=== PATIENT | male | born 1960 ===

== ENCOUNTER 2024-11-12 02:28 | Emergency (ER) | payer MEDICARE, SELFPAY ==
--- NOTE | ~2024-11-12 | XR_ITS ---
Portable chest x-ray Comparison: None Clinical History: Chest pain Findings: Lungs are clear, without focal consolidation or pleural effusion. Cardiomediastinal silho uette is unremarkable. Cervical spine fixation hardware noted. Impression: Clear lungs. Reviewed, dictated and finalized at location M. Impression: Clear lungs.
--- OUTSIDE RECORDS SUMMARY | 2024-11-12 02:30 | XMS_ITS | Clinical Summary ---
Author Organization [facility] Address [address] [place] [address] Care Team Providers Care Brickmason Supervisor Name Role Phone Kamron Garnett MD Primary Care Provider [phone] Becky Sands LCSW Unavailable Unavaila Micaela Braga RN Unavailable [phone] Allergies No known active allergies Medications hydroCHLOROthiazi de (HYDRODIURIL) 25 mg tablet Take 1 tablet by mouth once daily 90 tablet 11/22/19 24 Active losartan (COZAAR) 100 mg tabletIndications :Hypertension, essential Take 1 tablet (100 mg total) by mouth daily 90 tablet 05/09/20 24 Active nitroglycerin (NITROSTAT) 0.4 mg SL tablet DISSOLVE ONE TABLET UNDER THE TONGUE EVERY 5 MINUTES NEEDED FOR CHEST PAIN. DO NOT EXCEED A TOTAL OF 3 DOSES IN 15 MINUTES 25 tablet 08/15/19 25 Active amLODIPine (NORVASC) 10 mg tabletIndications :Hypertension, essential 11/04/19 25 Active atorvastatin (LIPITOR) 10 mg tabletIndications :Mixed hyperlipidemia 11/04/19 25 Active gabapentin (NEURONTIN) 300 mg capsuleIndication s:RLS (restless legs syndrome) 11/04/19 25 Active hydrOXYzine (VISTARIL) 50 mg capsuleIndication s:Bipolar disorder, in partial remission, most recent episode mixed (HCC) 11/04/19 25 Active lithium 300 mg capsuleIndication s:Bipolar disorder, in partial remission, most recent episode mixed (HCC) 11/05/19 25 Active OLANZapine (ZyPREXA) 10 mg tabletIndications :Bipolar disorder, in partial remission, most recent episode mixed (HCC) 11/04/19 25 Active pramipexole (MIRAPEX) 0.75 mg tabletIndications :RLS (restless legs syndrome) Take 1 tablet (0.75 mg total) by mouth nightly as needed (Restless Legs) 90 tablet 3 11/07/19 25 Active pramipexole (MIRAPEX) 0.5 mg tabletIndications :RLS (restless legs syndrome) Take 1 tablet (0.5 mg total) by mouth every morning 90 tablet 3 11/07/19 25 Active amLODIPine (NORVASC) 5 mg tablet Take 1 tablet (5 mg total) by mouth daily 30 tablet 5 07/11/19 22 025 Discontinued rosuvastatin (CRESTOR) 20 mg tabletIndications :Mixed hyperlipidemia Take 1 tablet (20 mg total) by mouth daily 30 tablet 11 05/08/20 23 025 Discontinued amLODIPine (NORVASC) 2.5 mg tabletIndications :hypertension Take 1 tablet (2.5 mg total) by mouth daily Take with 5 mg tab to bring total daily dose to 7.5 mg daily 30 tablet 3 07/25/19 24 025 Discontinued escitalopram (LEXAPRO) 10 mg tabletIndications :Mild episode of recurrent major depressive disorder Take 0.5 tablets (5 mg total) by mouth daily for 5 days, THEN 1 tablet (10 mg total) daily. 33 tablet 05/01/20 24 025 Discontinued pramipexole (MIRAPEX) 0.75 mg tablet Take 1 tablet (0.75 mg total) by mouth nightly as needed (Restless Legs) 30 tablet 3 09/26/19 25 025 Discontinued(R eorder) pramipexole (MIRAPEX) 0.5 mg tablet 11/04/19 25 025 Discontinued(R eorder) Active Problems Problem Noted Date Diagnosed Date Daytime somnolence 06/05/2023 Assessment & Plan (06/05/2023 11:21 AM EQUAL OPPORTUNITY COUNSELOR): STOP-BANG Score for Obstructive Sleep Apnea from [facility] on 06/05/2023 RESULT SUMMARY: 7 points --- Risk for moderate to severe MARILYNN - smoking before bed, caffeinated pops (pepsi), video games before bed, sleeps with TV on (lights) - obese - multifactorial sleep disturbance issues - highly suspicious for poor sleep hygiene VS sleep apnea no CPAP VS depression may be affecting sleep Current every day smoker 06/05/2023 Assessment & Plan (06/05/2023 11:39 AM EQUAL OPPORTUNITY COUNSELOR): Discussed quiting, patient previously able to quit for period of 20 yrs Total PY 20 -- 20 yrs x 1 PPD Currently 1 PPD since 2019 Smokes inside home, before sleep Pre-contemplation stage - understands risks At high risk for pneumonia 06/05/2023 Assessment & Plan (06/05/2023 11:47 AM EQUAL OPPORTUNITY COUNSELOR): Smoking status, HTN, obesity - PCV 20 administer to reduce risk Pxkutpluku-ryjotzlac-akbwrgi (DPT) vaccination d eclined 06/05/2023 Assessment & Plan (06/05/2023 11:48 AM EQUAL OPPORTUNITY COUNSELOR): Opted for one vaccine at appt 06/05/23 pcv 20 --- declined Tdap Abnormal EKG 05/12/2023 Assessment & Plan (06/05/2023 11:31 AM EQUAL OPPORTUNITY COUNSELOR): Abnormal changes on EKG 05/2023 Follow up NM spect 05/30/23 - 1. Normal myocardial perfusion. 2. No scintigraphic evidence of myocardial ischemia. 3. Normal left ventricular ejection fraction poststress. 4. Normal left ventricular wall motion. Lexiscan Stress test - CONCLUSIONS: 1. Negative Lexiscan pharmacologic stress test for chest pain or EKG changes. Discussed results today Assessment & Plan (05/12/2023 11:29 AM EQUAL OPPORTUNITY COUNSELOR): EKG was abnormal as well on repeat, we will need to get stress test as soon as feasible If symptoms recur, ER Nitroglycerin PRN for chest pain Recommended starting baby aspirin daily Replacing fenofibrate with Crestor Angina pectoris, unspecified 05/08/2023 Assessment & Plan (06/05/2023 11:36 AM EQUAL OPPORTUNITY COUNSELOR): CP with exertion, SOB with exertion, pitting edema of LE bilaterally - pro-BNP - recent stress and lexiscan revealed no abnormalities Cough syncope 05/17/2021 Chronic renal insufficiency, stage II (mild) Assessment & Plan (01/19/2021 11:29 AM CDT): stable Hypertension, essential 12/05/2020 Assessment & Plan (07/26/2023 1:07 PM EQUAL OPPORTUNITY COUNSELOR): Stress test clear from Nov Will watch however, any chest pain or jaw pain with chest pain/pressure, go to ER BP is mildly elevated; given the BP fluctuations, I will increase amlodipine to 7.5 mg daily Continue losartan, hydrochlorothiazide Assessment & Plan (06/05/2023 11:36 AM EQUAL OPPORTUNITY COUNSELOR): BP well controlled today 104/58 Continue current management - Amlodipine 5 mg Losartan 100 mg HCTZ 25 mg Crestor 20 mg Assessment & Plan (01/19/2021 11:29 AM CDT): BP is better, so we will leave losarta and chlorthalidone at current doses Need to emphasize the dietary part, so follow the DASH plan Assessment & Plan (12/17/2020 6:45 PM CDT): Home Bps running 165/105-170/180. In office blood pressure slightly elevated. Will increase Losartan to 100 mg. Keep home Bps and f/u in 4 weeks. Continue Chlorthalidone, refilled. Increase water intake and decrease salt intake. Assessment & Plan (12/05/2020 11:57 AM CDT): Trial losartan 50 mg daily, will continue chlorthalidone. BP journal should be kept. Ideally, I want BP to settle in 110s/70s (or 120s/70s). If below 100/60, should generate a call immediately. I also want to know if it is staying above 150/90 Mild episode of recurrent major depressive disor katherine 12/05/2020 Assessment & Plan (06/05/2023 11:37 AM EQUAL OPPORTUNITY COUNSELOR): No SI, SA, HI Prefers being alone Current treatment plan Escitalopram 5 mg po every day Assessment & Plan (12/17/2020 6:53 PM CDT): Patient notes that he has not yet located records of past medications he has been on. He does recall being on Effexor but not sure of what else. He was on Adderall in 2017 but then that made him hyperactive when mixed with his pain medications at the time. He was then dx with Bipolar and placed on N[place]. He states that he was not doing well on the [place] so his provider took him off the Adderall and N[place] and he felt better. It was later decided by his provider that the patient's anxiety and stress from work at the time were being exaggerated by the medications. Bipolar screen in office today is negative. Patient states his depression and anxiety are stable but he feels he needs to be on something because he is unmotivated with the depression. Denies SI. Will start on low dose Lexapro for now, patient to continue to locate records. Assessment & Plan (12/05/2020 11:57 AM CDT): Mood disorder will need to be addressed. Right now, stable. I need more records from previous doctor, to assess which antidepressants have been tried in the past, ferret out if bipolar or ADHD are truly present as well. Facial skin lesion 12/05/2020 Overview (12/05/2020): started after excision biopsy (pyoderma gangrenosum?) Assessment & Plan (12/05/2020 11:58 AM CDT): The facial lesion may be due to autoimmune issue, so I am adding that to the initial labs Referral to Dr. Haynes has been ordered RLS (restless legs syndrome) Assessment & Plan (01/19/2021 11:29 AM CDT): Will dose Mirapex a bit higher at night. We are somewhat over the limit for Mirapex already, so if this isn't helpful, we will try the alternative. Assessment & Plan (12/05/2020 11:59 AM CDT): Mirapex likely not controlling Will consider whether to increase or try a different rx (e.g. Requip) Will revisit at follow up; I want to get blood pressure controlled first. 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 05/01/20 24 Assessment & Plan (06/05/2023 11:40 AM EQUAL OPPORTUNITY COUNSELOR): Multiple caffeine sodas (pepsi) daily including before sleep Discussed reducing caffeine intake and relation to palpitations, anxiety\\, weight gain and difficulty sleeping Squamous cell carcinoma of forehead 02/02/2021 02/25/2021 Overview (02/02/2021): Added automatically from request for surgery [id number] SCC (squamous cell carcinoma) 01/21/2021 02/25/2021 Encounters Date Type Department Care Team Description 11/11/2024 Results Follow-Up [facility] Primary Care at [address] [phone] Kamron Garnett MD 11/06/2024 2:23 PM CDT - 11/06/2024 11:59 PM CDT Hospital Encounter [address] [address] Screening for prostate cancer; Bipolar disorder, in partial remission, most recent episode mixed (HCC); Mixed hyperlipidemia; Hypertension, essential; RLS (restless legs syndrome); Body mass index (BMI) 33.0-33.9, adult Discharge Disposition: Discharge to home or self care 11/06/2024 2:15 PM CDT Lab [facility] Outpatient Lab at [address] [phone] Hypertension, essential (Primary Dx) 11/06/2024 1:30 PM CDT Office Visit [facility] Primary Care at [address] [phone] Kamron Garnett MD Bipolar disorder, in partial remission, most recent episode mixed (HCC) (Primary Dx); Mild episode of recurrent major depressive disorder; Screening for prostate cancer; Mixed hyperlipidemia; RLS (restless legs syndrome); Hypertension, essential 11/04/2024 ACO Outreach [facility] Care Organization [address] [place] [id number] Micaela Baum RN 10/28/2024 ACO Outreach [address] [address] Micaela Baum RN 10/26/2024 7:54 AM CDT - 10/26/2024 11:59 PM CDT Hospital Encounter [facility] Emergency, Room R Discharge Disposition: Discharge to home or self care 10/25/2024 3:09 PM CDT - 10/26/2024 7:53 AM CDT Emergency [facility] Emergency Department [address] [place] [id number] Juan Tobin MD Paranoia (HCC) (Primary Dx); Urinary tract infection in male Discharge Disposition: Discharge to psych hospital or psych unit 10/25/2024 Nurse Triage [facility] Primary Care at [place] [phone] Kamron Garnett MD 10/23/2024 Results Follow-Up [facility] Emergency Department [address] [place] [id number] Gabriel Maddox PA 10/23/2024 Telephone [facility] Primary Care at [address] [phone] Kamron Garnett MD Successful Phone Call 10/22/2024 9:51 PM CDT - 10/23/2024 1:09 AM CDT Emergency [facility] Emergency Department [address] [place] [address] Jonathan Hart MD Paranoia (HCC) (Primary Dx) Discharge Disposition: Discharge to home or self care 10/22/2024 6:27 PM CDT - 10/22/2024 7:12 PM CDT Emergency [facility] Emergency Department [address] [place] [id number] Kanumuri, Eugene, MD Paranoid delusion (HCC) (Primary Dx) Discharge Disposition: Left Against Medical Advice 10/22/2024 Nurse Triage [facility] Primary Care at [address] [phone] Kamron Garnett MD 10/22/2024 Nurse Triage [facility] Primary Care at [address] [phone] Kamron Garnett MD 10/21/2024 ACO Clinical Pharmacist [facility] Organization [address] [place] [phone] So Wright RP from Last 3 Months Immunizations Immunization Administration Dates Next Due Influenza, Quadrivalent, Spl it, Preservative Free, Intramuscular 05/17/2021 Influenza, Unspecified 05/01/2024(Deferr ed: Patient Refused),05/08/2023(Deferred: Patient Refused),12/30/2022(Deferred: Patient Refused),07/02/2022(Deferred: Patient Refused),04/01/2020(Deferred: Patient Refused),04/01/2020(Deferred: Patient Refused),04/01/2019(Deferred: Patient Refused),04/01/2019(Deferred: Patient Refused) Pfizer SARS-CoV-2 Monovalent Vaccination (12+ Yrs) PURPLE 09/22/2020,09/02/2020 Pneumococcal Conjugate Pcv20 06/05/2023 Surgical History Surgery Date Site/Laterality Comments ANTERIOR FUSION CERVICAL SPINE 07/02/2007 - 07/01/2008 CHOLECYSTECTOMY 07/02/2010 - 07/01/2011 HERNIA REPAIR 07/02/2002 - 07/01/2003 bilateral inguinal and umbilical SQUAMOUS CELL CARCINOMA EXCISION 02/09/2021 Medical History Medical History Date Comments Hypertension Obesity (BMI 30.0-34.9) Depression RLS (restless legs syndrome) GERD (gastroesophageal reflu x disease) Anesthesia complication, sequela Pt reports prolonged tiredness for 2-3 days after anesthesia. Anesthesia causes constipation. SCC (squamous cell carcinoma) 01/21/2021 Squamous cell carcinoma of forehead 02/02/2021 Added automatically from request for surgery [id number] OCD (obsessive compulsive disorder) Bipolar 1 disorder (HCC) Borderline personality disorder (HCC) not offical dx Family History Medical History Relation Name Comments Diabetes type I Father at age 36 Lung cancer Maternal Grandfather No Known Problems Maternal Grandmother Heart failure Mother No Known Problems Paternal Grandfather No Known Problems Paternal Grandmother Relation Name Status Comments Brother 1 Alive Brother 2 Alive Brother 3 Alive Father Maternal Grandfather Maternal Grandmother Mother Paternal Grandfather Paternal Grandmother Social History Tobacco Use Types Packs/Day Years Used Date Smoking Tobacco: Some Days Cigarettes 0.5 69.4 Started: 07/02/1980 Cigars Smokeless Tobacco: Never Tobacco Cessation:Ready to Q uit: Not Asked; Counseling Given: Not Answered Alcohol Use Standard Drinks/Week Comments Not Currently 0 (1 standard drink = 0.6 oz pur e alcohol) [facility] Utilities Answer Date Recorded In the past 12 months has th e electric, gas, oil, or water company threatened to shut off services in your home? No 10/23/2024 Social Connection and Isolation Panel [NHANES] A nswer Date Recorded In a typical week, how many times do you talk on the phone with family, friends, or neighbors? Three times a week 10/23/2024 How often do you get togethe r with friends or relatives? Never 10/23/2024 How often do you attend chur ch or restorationism services? Never 10/23/2024 Do you belong to any clubs o r organizations such as hindu groups, unions, fraternal or athletic groups, or school groups? No 10/23/2024 How often do you attend meet ings of the clubs or organizations you belong to? Never 10/23/2024 Are you , , di vorced, , never , or living with a partner? 10/23/2024 AUDIT-C Answer Date Recorded Q1: How often do you have a drink containing alcohol? Never 07/25/2023 Q2: How many drinks containi ng alcohol do you have on a typical day when you are drinking? Patient does not drink Q3: How often do you have si x or more drinks on one occasion? Never 07/25/2023 Overall Financial Resource Strain (CARDIA) Answe r Date Recorded How hard is it for you to pa y for the very basics like food, housing, medical care, and heating? Hard 10/23/2024 PHQ-2 Answer Date Recorded PHQ-2 Total Score (If total score is 3 or more points, staff should administer the PHQ-9) 6 05/01/2024 [facility] Occupat ional [facility] - Occupational Stress Questionnaire Answer Date Recorded Do you feel stress - tense, restless, nervous, or anxious, or unable to sleep at night because your mind is troubled all the time - these days? Very much 10/23/2024 Hunger Vital Sign Answer Date Recorded Within the past 12 months, y ou worried that your food would run out before you got the money to buy more. Never true 10/24/19 25 Within the past 12 months, t he food you bought just didn't last and you didn't have money to get more. Never true 10/23/2024 PRAPARE - Transportation Answer Date Re corded In the past 12 months, has l ack of transportation kept you from medical appointments or from getting medications? No 10/01 In the past 12 months, has l ack of transportation kept you from meetings, work, or from getting things needed for daily living? No 10/23/2024 PHQ-9 Answer Date Recorded PHQ-9 Total Score 3 10/23/2024 Housing Stability Vital Sign Answer Jorge e Recorded In the last 12 months, was t here a time when you were not able to pay the mortgage or rent on time? Yes 10/23/2024 In the past 12 months, how m any times have you moved where you were living? 1 10/23/2024 At any time in the past [address] [facility], were you homeless or living in a chcf (including now)? No 10/23/2024 Personal Safety Answer Date Recorded Have you ever been in or are you currently in a harmful physical or emotional relationship or is someone making you feel afraid or unsafe? Denies 10/25/2024 Education Answer Date Recorded What is the highest level of school you have completed or the highest degree you have received? 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 Not on file Not on file Not on file Obstetrics History Last Filed Vital Signs Vital Sign Reading Time Taken Comments Blood Pressure 156/80 11/06/2024 1:31 PM CDT Pulse 86 11/06/2024 1:31 PM CDT Temperature 36.1 C (96.9 F) 11/06/2024 1:31 PM CDT Respiratory Rate 18 11/06/2024 1:31 PM CDT Oxygen Saturation 98% 11/06/2024 1:31 PM CDT Inhaled Oxygen Concentration - - Weight 98.9 kg (218 lb) 11/06/2024 1:31 PM CDT Height 175.3 cm (5' 9 ) 11/06/2024 1:31 PM CDT Body Mass Index 32.19 11/06/2024 1:31 PM CDT Plan of Treatment Health Maintenance Due Date Last Done Comments Colon Cancer Screening-Colonoscopy 1961 Hepatitis B Screening 11/19/1979 Regular Well Visit/Exam 18-64 11/19/1979 Lung Cancer Screening 11/19/2011 Covid-19 Vaccine ( - season) 2024 09/22/2020, 09/02/2020 Influenza Vaccine (Season Ended) 2025 05/17/2021 DTaP/Tdap/Td Vaccine (1 - Tdap) 07/01/2025 Postponed from 1972 (Insurance / Financial) Depression Screening 10/23/2025 10/23/2024, 05/01/2024, 05/01/2024, Additional history exists Zoster Vaccine (1 of 2) 11/06/2025 Post poned from 11/19/2011 (Insurance / Financial) Prostate Cancer Screening-PSA 11/06/2026 11/06/2024, 01/11/2021 Hepatitis C Screening Completed 01/11/2021 Pneumococcal vaccine <65 Completed 06/05/2023 Goals Goal Patient Goal Type Associated Problems Recent Progress Patient-Stated? Author ACO SW Goal - Patient can identify and utilize needed community resources ACO Care Management Becky Hernandez, RISK INTERN Note: Problem: Need for Community Resources Interventions: - Provide patient/family with a list of appropriate resources for their specific need. - Help to coordinate resources. - Follow up to ensure patient/family has connected with the appropriate resources / personnel. BRITT General Goal - Patient schedules and keeps appointments with all recommended providers ACO Care Management Micaela Rosas RN Note: Problem: Potential for medical complications and readmission if follow-up appointments are not scheduled Interventions: - Ensure all follow-up appointments are scheduled, all prescribed medications have been received. - Address any barriers for keeping scheduled appointment. - Coordinate with patient/caregiver(s) to ensure patient is able to keep scheduled appointment. - Emphasize importance of keeping scheduled appointments. - Identify and discuss questions for next provider visit. - Follow up with patient after scheduled appointment(s) to review any new orders or changes made to medication regimen. BRITT General Goal - Patient will increase compliance with medication orders ACO Care Management Micaela Rosas RN Note: Problem: Risk for readmission due to lack of medication adherence Interventions: - Review medication list as ordered by discharging physician. Compare this to what patient is currently taking. - Address any barriers to taking discharge medications as ordered. Coordinate with appropriate personnel (pattern layout worker, physician, pharmacist, etc.) to help increase compliance with medication regimen. - Review with patient/caregiver the medication schedule in detail. Review when to call their physician for potential medication complications and ensure they verbalize understanding of instructions. Procedures Procedure Name Priority Date/Time Associated Diagnosis Comments EGFR Routine 11/06/2024 2:23 PM CDT Hypertension, essential DIFFERENTIAL AUTO Routine 11/06/2024 2:2 3 PM CDT Hypertension, essential RLS (restless legs syndrome) VITAMIN D 25 HYDROXY Routine 11/06/2024 2:23 PM CDT RLS (restless legs syndrome) Body mass index (BMI) 33.0-33.9, adult TSH Routine 11/06/2024 2:23 PM CDT Hypertension, essential COMPREHENSIVE METABOLIC PANEL Routine 11/06/2024 2:23 PM CDT Hypertension, essential CBC WITH AUTO DIFFERENTIAL Routine 11/06/2024 2:23 PM CDT Hypertension, essential RLS (restless legs syndrome) LIPID PANEL Routine 11/06/2024 2:23 PM CDT Mixed hyperlipidemia LITHIUM LEVEL Routine 11/06/2024 2:23 PM CDT Bipolar disorder, in partial remission, most recent episode mixed (HCC) PSA SCREEN Routine 11/06/2024 2:23 PM CDT Screening for prostate cancer DRUGS OF ABUSE SCREEN, URINE WITHOUT CONFIRMATION STAT 10/25/2024 5:36 PM CDT URINALYSIS, MICROSCOPIC ONLY STAT 10/25/2024 3:20 PM CDT DRUGS OF ABUSE SCREEN, URINE WITHOUT CONFIRMATION STAT 10/25/2024 3:20 PM CDT URINE CULTURE STAT 10/25/2024 3:20 PM CDT URINALYSIS AND REFLEX TO MICROSCOPIC AND CULTURE STAT 10/25/2024 3:20 PM CDT EGFR STAT 10/25/2024 3:09 PM CDT DIFFERENTIAL AUTO STAT 10/25/2024 3:0 9 PM CDT ACETAMINOPHEN LEVEL STAT 10/25/2024 3 :09 PM CDT SALICYLATE LEVEL STAT 10/25/2024 3:09 PM CDT ETHANOL STAT 10/25/2024 3:09 PM CDT THYROID FUNCTION CASCADE STAT 10/25/2024 3:09 PM CDT COMPREHENSIVE METABOLIC PANEL STAT 10/25/2024 3:09 PM CDT CBC WITH AUTO DIFFERENTIAL STAT 10/25/2024 3:09 PM CDT COVID-19 CORONAVIRUS RNA STAT 10/25/2024 3:09 PM CDT EGFR STAT 10/22/2024 6:46 PM CDT URINALYSIS, MICROSCOPIC ONLY STAT 10/22/2024 6:46 PM CDT DIFFERENTIAL AUTO STAT 10/22/2024 6:4 6 PM CDT SALICYLATE LEVEL STAT 10/22/2024 6:46 PM CDT ACETAMINOPHEN LEVEL STAT 10/22/2024 6 :46 PM CDT DRUGS OF ABUSE SCREEN, URINE WITHOUT CONFIRMATION STAT 10/22/2024 6:46 PM CDT ETHANOL STAT 10/22/2024 6:46 PM CDT THYROID FUNCTION CASCADE STAT 10/22/2024 6:46 PM CDT COMPREHENSIVE METABOLIC PANEL STAT 10/22/2024 6:46 PM CDT CBC WITH AUTO DIFFERENTIAL STAT 10/22/2024 6:46 PM CDT URINE CULTURE STAT 10/22/2024 6:46 PM CDT COVID-19 CORONAVIRUS RNA STAT 10/22/2024 6:46 PM CDT URINALYSIS AND REFLEX TO MICROSCOPIC AND CULTURE STAT 10/22/2024 6:46 PM CDT HEPATITIS C ANTIBODY Routine 01/11/2021 12:09 PM CDT Encounter for hepatitis C screening test for low risk patient from Last 3 Months or Most Recently Relevant to Health Maintenance Results * eGFR (11/06/2024 2:23 PM CDT) eGFR >90 >=60 mL/min/1. 73 m2 Comment: Interpretive Data Reference Interval Normal >/= 90 mL/min/1.73m2 Mildly decreased* 60 - 89 mL/min/1.73m2 Mildly to moderately decreased 45 - 59 mL/min/1.73m2 Moderately to severely decreased 30 - 44 mL/min/1.73m2 Severely decreased 15 - 29 mL/min/1.73m2 Kidney Failure < 15 mL/min/1.73m2 *Relative to young adult level Estimated glomerular filtration rate is determined by the 2020 CKD-EPI equation recommended by the National [employer] (A Unifying Approach to GFR Estimation: Recommendations of the NKF-ASK Task Force on Reassessing the Inclusion of Race in Diagnosing Kidney Disease, JASN 202). The CKD-EPI equation should not be used for patients with unstable renal function and has not been validated in children and those over 70. Current interpretive data was last reviewed 2021. Blood 11/06/2024 2:23 PM CDT 11/06/2024 9:25 PM CDT us Kamron Garnett MD LAB BLOOD ORDERABLES Final Result [facility] [address] [place] [address] * (ABNORMAL) Differential, auto (11/06/2024 2:23 PM CDT) Neutrophil abs 6.17 1.50 - 6.50 K/cumm Imm gran abs 0.06 0.00 - 0.10 K/cumm [facility] Lymphocyte abs 2.20 0.80 - 3.30 K/cumm [facility] Monocyte abs 1.01(H) 0.20 - 0.80 K/cumm [facility] Eosinophil abs 0.32 0.00 - 0.50 K/cumm [facility] Basophil abs 0.06 0.00 - 0.10 K/cumm [facility] Neutrophil pct 62.8 % [facility] Comment: Interpretive Data Percent cell count reference ranges are not reported, since discordance with absolute values may lead to misinterpretation of CBC data. Current Interpretive Data was last revised on 2017. Imm gran pct 0.6 % [facility] Comment: Interpretive Data Percent cell count reference ranges are not reported, since discordance with absolute values may lead to misinterpretation of CBC data. Current Interpretive Data was last revised on 2017. Lymphocyte pct 22.4 % [facility] Comment: Interpretive Data Percent cell count reference ranges are not reported, since discordance with absolute values may lead to misinterpretation of CBC data. Current Interpretive Data was last revised on 2017. Monocyte pct 10.3 % [facility] Comment: Interpretive Data Percent cell count reference ranges are not reported, since discordance with absolute values may lead to misinterpretation of CBC data. Current Interpretive Data was last revised on 2017. Eosinophil pct 3.3 % [facility] Comment: Interpretive Data Percent cell count reference ranges are not reported, since discordance with absolute values may lead to misinterpretation of CBC data. Current Interpretive Data was last revised on 2017. Basophil pct 0.6 % [facility] Comment: Interpretive Data Percent cell count reference ranges are not reported, since discordance with absolute values may lead to misinterpretation of CBC data. Current Interpretive Data was last revised on 2017. Blood 11/06/2024 2:23 PM CDT 11/06/2024 8:36 PM CDT Kamron Garnett MD LAB BLOOD ORDERABLES Final Result [facility] [address] Department [place] [address] * PSA screen (11/06/2024 2:23 PM CDT) PSA-Total 1.94 <=5.40 ng/mL Comment: Interpretive Data AGE SEX REFERENCE INTERVAL 0 minutes-150 years Female None 0 minutes-49 years Male None 50-59 years Male 0-3.90 60-69 years Male 0-5.40 70-79 years Male 0-6.20 80-150 years Male 0-6.20 The Denisse PSA Total assay procedure was used. Results from different manufacturers or methods may not be comparable. Serial testing should be performed using the same method. Current interpretive data last revised 21. Blood 11/06/2024 2:23 PM CDT 11/06/2024 8:35 PM CDT us Kamron Garnett MD LAB BLOOD ORDERABLES Final Result Performing Organization Address City/State/ZIP Co ri Phone Number WILLIAM [phone] [facility] Department [place] [address] * (ABNORMAL) CBC with auto differential (11/06/2024 2:23 PM CDT) [id number]|2024-11-12 02:30:00|2024-11-12 02:30:00|XMS_ITS|BKG DAEMON|External Medical Summaries|[id number]|" Referral Summary Created on: November 12, 2024 Dick Tan : 1960 Sex: Male Author Organization [facility] Address [address] [place] [id number] Care Team Providers Care Brickmason Supervisor Name Role Phone Kamron Garnett MD Primary Care Provider [phone] Becky Sands LCSW Unavailable Unavaila Micaela Braga RN Unavailable [phone] Encounters Date Type Department Care Team Description 11/11/2024 Results Follow-Up [facility] Primary Care at [address] [phone] Kamron Garnett MD 11/06/2024 2:23 PM CDT - 11/06/2024 11:59 PM CDT Hospital Encounter [facility] [address] [place] [address] Screening for prostate cancer; Bipolar disorder, in partial remission, most recent episode mixed (HCC); Mixed hyperlipidemia; Hypertension, essential; RLS (restless legs syndrome); Body mass index (BMI) 33.0-33.9, adult Discharge Disposition: Discharge to home or self care 11/06/2024 2:15 PM CDT Lab [facility] Outpatient Lab at [address] [phone] Hypertension, essential (Primary Dx) 11/06/2024 1:30 PM CDT Office Visit [facility] Primary Care at [address] [phone] Kamron Garnett MD Bipolar disorder, in partial remission, most recent episode mixed (HCC) (Primary Dx); Mild episode of recurrent major depressive disorder; Screening for prostate cancer; Mixed hyperlipidemia; RLS (restless legs syndrome); Hypertension, essential 11/04/2024 [facility] [address] [address] Micaela Baum RN 10/28/2024 [facility] [address] [address] Micaela Baum RN 10/26/2024 7:54 AM CDT - 10/26/2024 11:59 PM CDT Hospital Encounter [facility] Emergency, Room R Discharge Disposition: Discharge to home or self care 10/25/2024 3:09 PM CDT - 10/26/2024 7:53 AM CDT Emergency [facility] Emergency Department [address] [place] [address] Juan Tobin MD Paranoia (HCC) (Primary Dx); Urinary tract infection in male Discharge Disposition: Discharge to psych hospital or psych unit 10/25/2024 Nurse Triage [facility] Primary Care at [address] [phone] Kamron Garnett MD 10/23/2024 Results Follow-Up [facility] Emergency Department [address] [place] [address] Gabriel Maddox PA 10/23/2024 Telephone [facility] Primary Care at [address] [phone] Kamron Garnett MD Successful Phone Call 10/22/2024 9:51 PM CDT - 10/23/2024 1:09 AM CDT Emergency [facility] Emergency Department [address] [place] [address] Jonathan Hart MD Paranoia (HCC) (Primary Dx) Discharge Disposition: Discharge to home or self care 10/22/2024 Nurse Triage [facility] Primary Care at [address] [phone] Kamron Garnett MD 10/22/2024 6:27 PM CDT - 10/22/2024 7:12 PM CDT Emergency [facility] Emergency Department [address] [place] [address] Eugene Ballard MD Paranoid delusion (HCC) (Primary Dx) Discharge Disposition: Left Against Medical Advice 10/22/2024 Nurse Triage [facility] Primary Care at [address] [phone] Kamron Garnett MD 10/21/2024 ACO Clinical Pharmacist [facility] Accountable Care Organization [address] [place] [id number] So Wright RPh from Last 3 Months Allergies No known active allergies Medications hydroCHLOROthiazi de (HYDRODIURIL) 25 mg tablet Take 1 tablet by mouth once daily 90 tablet 11/22/19 24 Active losartan (COZAAR) 100 mg tabletIndications :Hypertension, essential Take 1 tablet (100 mg total) by mouth daily 90 tablet 05/09/20 24 Active nitroglycerin (NITROSTAT) 0.4 mg SL tablet DISSOLVE ONE TABLET UNDER THE TONGUE EVERY 5 MINUTES NEEDED FOR CHEST PAIN. DO NOT EXCEED A TOTAL OF 3 DOSES IN 15 MINUTES 25 tablet 08/15/19 25 Active amLODIPine (NORVASC) 10 mg tabletIndications :Hypertension, essential 11/04/19 25 Active atorvastatin (LIPITOR) 10 mg tabletIndications :Mixed hyperlipidemia 05/05/20 25 Active gabapentin (NEURONTIN) 300 mg capsuleIndication s:RLS (restless legs syndrome) 11/04/19 25 Active hydrOXYzine (VISTARIL) 50 mg capsuleIndication s:Bipolar disorder, in partial remission, most recent episode mixed ([facility]) 11/04/19 25 Active lithium 300 mg capsuleIndication s:Bipolar disorder, in partial remission, most recent episode mixed ([facility]) 11/05/19 25 Active OLANZapine (ZyPREXA) 10 mg tabletIndications :Bipolar disorder, in partial remission, most recent episode mixed ([facility]) 11/04/19 25 Active pramipexole (MIRAPEX) 0.75 mg tabletIndications :RLS (restless legs syndrome) Take 1 tablet (0.75 mg total) by mouth nightly as needed (Restless Legs) 90 tablet 3 11/07/19 25 Active pramipexole (MIRAPEX) 0.5 mg tabletIndications :RLS (restless legs syndrome) Take 1 tablet (0.5 mg total) by mouth every morning 90 tablet 3 11/07/19 25 Active amLODIPine (NORVASC) 5 mg tablet Take 1 tablet (5 mg total) by mouth daily 30 tablet 5 07/11/19 22 025 Discontinued rosuvastatin (CRESTOR) 20 mg tabletIndications :Mixed hyperlipidemia Take 1 tablet (20 mg total) by mouth daily 30 tablet 11 05/08/20 23 025 Discontinued amLODIPine (NORVASC) 2.5 mg tabletIndications :hypertension Take 1 tablet (2.5 mg total) by mouth daily Take with 5 mg tab to bring total daily dose to 7.5 mg daily 30 tablet 3 07/25/19 24 025 Discontinued escitalopram (LEXAPRO) 10 mg tabletIndications :Mild episode of recurrent major depressive disorder Take 0.5 tablets (5 mg total) by mouth daily for 5 days, THEN 1 tablet (10 mg total) daily. 33 tablet 05/01/20 24 025 Discontinued pramipexole (MIRAPEX) 0.75 mg tablet Take 1 tablet (0.75 mg total) by mouth nightly as needed (Restless Legs) 30 tablet 3 09/26/19 25 025 Discontinued(R eorder) pramipexole (MIRAPEX) 0.5 mg tablet 11/04/19 25 025 Discontinued(R eorder) Active Problems Problem Noted Date Diagnosed Date Daytime somnolence 06/05/2023 Assessment & Plan (06/05/2023 11:21 AM EQUAL OPPORTUNITY COUNSELOR): STOP-BANG Score for Obstructive Sleep Apnea from [facility] on 06/05/2023 RESULT SUMMARY: 7 points --- Risk for moderate to severe MARILYNN - smoking before bed, caffeinated pops (pepsi), video games before bed, sleeps with TV on (lights) - obese - multifactorial sleep disturbance issues - highly suspicious for poor sleep hygiene VS sleep apnea no CPAP VS depression may be affecting sleep Current every day smoker 06/05/2023 Assessment & Plan (06/05/2023 11:39 AM EQUAL OPPORTUNITY COUNSELOR): Discussed quiting, patient previously able to quit for period of 20 yrs Total PY 20 -- 20 yrs x 1 PPD Currently 1 PPD since 2019 Smokes inside home, before sleep Pre-contemplation stage - understands risks At high risk for pneumonia 06/05/2023 Assessment & Plan (06/05/2023 11:47 AM EQUAL OPPORTUNITY COUNSELOR): Smoking status, HTN, obesity - PCV 20 administer to reduce risk Upybyunnbi-paogmgecc-jhogctr (DPT) vaccination d eclined 06/05/2023 Assessment & Plan (06/05/2023 11:48 AM EQUAL OPPORTUNITY COUNSELOR): Opted for one vaccine at appt 06/05/23 pcv 20 --- declined Tdap Abnormal EKG 05/12/2023 Assessment & Plan (06/05/2023 11:31 AM EQUAL OPPORTUNITY COUNSELOR): Abnormal changes on EKG 05/2023 Follow up NM spect 05/30/23 - 1. Normal myocardial perfusion. 2. No scintigraphic evidence of myocardial ischemia. 3. Normal left ventricular ejection fraction poststress. 4. Normal left ventricular wall motion. Lexiscan Stress test - CONCLUSIONS: 1. Negative Lexiscan pharmacologic stress test for chest pain or EKG changes. Discussed results today Assessment & Plan (05/12/2023 11:29 AM EQUAL OPPORTUNITY COUNSELOR): EKG was abnormal as well on repeat, we will need to get stress test as soon as feasible If symptoms recur, ER Nitroglycerin PRN for chest pain Recommended starting baby aspirin daily Replacing fenofibrate with Crestor Angina pectoris, unspecified 05/08/2023 Assessment & Plan (06/05/2023 11:36 AM EQUAL OPPORTUNITY COUNSELOR): CP with exertion, SOB with exertion, pitting edema of LE bilaterally - pro-BNP - recent stress and lexiscan revealed no abnormalities Cough syncope 05/17/2021 Chronic renal insufficiency, stage II (mild) Assessment & Plan (01/19/2021 11:29 AM CDT): stable Hypertension, essential 12/05/2020 Assessment & Plan (07/26/2023 1:07 PM EQUAL OPPORTUNITY COUNSELOR): Stress test clear from Nov Will watch however, any chest pain or jaw pain with chest pain/pressure, go to ER BP is mildly elevated; given the BP fluctuations, I will increase amlodipine to 7.5 mg daily Continue losartan, hydrochlorothiazide Assessment & Plan (06/05/2023 11:36 AM EQUAL OPPORTUNITY COUNSELOR): BP well controlled today 104/58 Continue current management - Amlodipine 5 mg Losartan 100 mg HCTZ 25 mg Crestor 20 mg Assessment & Plan (01/19/2021 11:29 AM CDT): BP is better, so we will leave losarta and chlorthalidone at current doses Need to emphasize the dietary part, so follow the DASH plan Assessment & Plan (12/17/2020 6:45 PM CDT): Home Bps running 165/105-170/180. In office blood pressure slightly elevated. Will increase Losartan to 100 mg. Keep home Bps and f/u in 4 weeks. Continue Chlorthalidone, refilled. Increase water intake and decrease salt intake. Assessment & Plan (12/05/2020 11:57 AM CDT): Trial losartan 50 mg daily, will continue chlorthalidone. BP journal should be kept. Ideally, I want BP to settle in 110s/70s (or 120s/70s). If below 100/60, should generate a call immediately. I also want to know if it is staying above 150/90 Mild episode of recurrent major depressive disor katherine 12/05/2020 Assessment & Plan (06/05/2023 11:37 AM EQUAL OPPORTUNITY COUNSELOR): No SI, SA, HI Prefers being alone Current treatment plan Escitalopram 5 mg po every day Assessment & Plan (12/17/2020 6:53 PM CDT): Patient notes that he has not yet located records of past medications he has been on. He does recall being on Effexor but not sure of what else. He was on Adderall in 2017 but then that made him hyperactive when mixed with his pain medications at the time. He was then dx with Bipolar and placed on N[place]sack. He states that he was not doing well on the N[place] so his provider took him off the Adderall and N[place]sack and he felt better. It was later decided by his provider that the patient's anxiety and stress from work at the time were being exaggerated by the medications. Bipolar screen in office today is negative. Patient states his depression and anxiety are stable but he feels he needs to be on something because he is unmotivated with the depression. Denies SI. Will start on low dose Lexapro for now, patient to continue to locate records. Assessment & Plan (12/05/2020 11:57 AM CDT): Mood disorder will need to be addressed. Right now, stable. I need more records from previous doctor, to assess which antidepressants have been tried in the past, ferret out if bipolar or ADHD are truly present as well. Facial skin lesion 12/05/2020 Overview (12/05/2020): started after excision biopsy (pyoderma gangrenosum?) Assessment & Plan (12/05/2020 11:58 AM CDT): The facial lesion may be due to autoimmune issue, so I am adding that to the initial labs Referral to Dr. Haynes has been ordered RLS (restless legs syndrome) Assessment & Plan (01/19/2021 11:29 AM CDT): Will dose Mirapex a bit higher at night. We are somewhat over the limit for Mirapex already, so if this isn't helpful, we will try the alternative. Assessment & Plan (12/05/2020 11:59 AM CDT): Mirapex likely not controlling Will consider whether to increase or try a different rx (e.g. Requip) Will revisit at follow up; I want to get blood pressure controlled first. 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 05/01/20 24 Assessment & Plan (06/05/2023 11:40 AM EQUAL OPPORTUNITY COUNSELOR): Multiple caffeine sodas (pepsi) daily including before sleep Discussed reducing caffeine intake and relation to palpitations, anxiety\\, weight gain and difficulty sleeping Squamous cell carcinoma of forehead 02/02/2021 02/25/2021 Overview (02/02/2021): Added automatically from request for surgery [id number] SCC (squamous cell carcinoma) 01/21/2021 02/25/2021 Immunizations Immunization Administration Dates Next Due Influenza, Quadrivalent, Spl it, Preservative Free, Intramuscular 05/17/2021 Influenza, Unspecified 05/01/2024(Deferr ed: Patient Refused),05/08/2023(Deferred: Patient Refused),12/30/2022(Deferred: Patient Refused),07/02/2022(Deferred: Patient Refused),04/01/2020(Deferred: Patient Refused),04/01/2020(Deferred: Patient Refused),04/01/2019(Deferred: Patient Refused),04/01/2019(Deferred: Patient Refused) Pfizer SARS-CoV-2 Monovalent Vaccination (+ Yrs) PURPLE 09/22/2020,09/02/2020 Pneumococcal Conjugate Pcv20 06/05/2023 Social History Tobacco Use Types Packs/Day Years Used Date Smoking Tobacco: Some Days Cigarettes 0.5 69.4 Started: 07/02/1980 Cigars Smokeless Tobacco: Never Tobacco Cessation:Ready to Q uit: Not Asked; Counseling Given: Not Answered Alcohol Use Standard Drinks/Week Comments Not Currently 0 (1 standard drink = 0.6 oz pur e alcohol) [facility] Utilities Answer Date Recorded In the past 12 months has th e [employer], gas, oil, or water [employer] threatened to shut off services in your home? No 10/23/2024 Social Connection and Isolation Panel [NHANES] A nswer Date Recorded In a typical week, how many times do you talk on the phone with family, friends, or neighbors? Three times a week 10/23/2024 How often do you get togethe r with friends or relatives? Never 10/23/2024 How often do you attend [facility] or restorationism services? Never 10/23/2024 Do you belong to any clubs o r organizations such as hindu groups, unions, fraternal or athletic groups, or school groups? No 10/23/2024 How often do you attend meet ings of the clubs or organizations you belong to? Never 10/23/2024 Are you , , di vorced, , never , or living with a partner? 10/23/2024 AUDIT-C Answer Date Recorded Q1: How often do you have a drink containing alcohol? Never 07/25/2023 Q2: How many drinks containi ng alcohol do you have on a typical day when you are drinking? Patient does not drink Q3: How often do you have si x or more drinks on one occasion? Never 07/25/2023 Overall Financial Resource Strain (CARDIA) Answe r Date Recorded How hard is it for you to pa y for the very basics like food, housing, medical care, and heating? Hard 10/23/2024 PHQ-2 Answer Date Recorded PHQ-2 Total Score (If total score is 3 or more points, staff should administer the PHQ-9) 6 05/01/2024 [facility] - Occupational Stress Questionnaire Answer Date Recorded Do you feel stress - tense, restless, nervous, or anxious, or unable to sleep at night because your mind is troubled all the time - these days? Very much 10/23/2024 Hunger Vital Sign Answer Date Recorded Within the past 12 months, y ou worried that your food would run out before you got the money to buy more. Never true 10/24/19 25 Within the past 12 months, t he food you bought just didn't last and you didn't have money to get more. Never true 10/23/2024 PRAPARE - Transportation Answer Date Re corded In the past 12 months, has l ack of transportation kept you from medical appointments or from getting medications? No 10/01 In the past 12 months, has l ack of transportation kept you from meetings, work, or from getting things needed for daily living? No 10/23/2024 PHQ-9 Answer Date Recorded PHQ-9 Total Score 3 10/23/2024 Housing Stability Vital Sign Answer Jorge e Recorded In the last 12 months, was t here a time when you were not able to pay the mortgage or rent on time? Yes 10/23/2024 In the past 12 months, how m any times have you moved where you were living? 1 10/23/2024 At any time in the past [address] [facility], were you homeless or living in a chcf (including now)? No 10/23/2024 Personal Safety Answer Date Recorded Have you ever been in or are you currently in a harmful physical or emotional relationship or is someone making you feel afraid or unsafe? Denies 10/25/2024 Education Answer Date Recorded What is the highest level of school you have completed or the highest degree you have received? 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 Author ACO SW Goal - Patient can identify and utilize needed community resources ACO Care Management No Becky Sands, BEHZAD Note: Problem: Need for Community Resources Interventions: - Provide patient/family with a list of appropriate resources for their specific need. - Help to coordinate resources. - Follow up to ensure patient/family has connected with the appropriate resources / personnel. BRITT General Goal - Patient schedules and keeps appointments with all recommended providers ACO Care Management No Micaela Baum RN Note: Problem: Potential for medical complications and readmission if follow-up appointments are not scheduled Interventions: - Ensure all follow-up appointments are scheduled, all prescribed medications have been received. - Address any barriers for keeping scheduled appointment. - Coordinate with patient/caregiver(s) to ensure patient is able to keep scheduled appointment. - Emphasize importance of keeping scheduled appointments. - Identify and discuss questions for next provider visit. - Follow up with patient after scheduled appointment(s) to review any new orders or changes made to medication regimen. BRITT General Goal - Patient will increase compliance with medication orders ACO Care Management Micaela Rosas RN Note: Problem: Risk for readmission due to lack of medication adherence Interventions: - Review medication list as ordered by discharging physician. Compare this to what patient is currently taking. - Address any barriers to taking discharge medications as ordered. Coordinate with appropriate personnel (pattern layout worker, physician, pharmacist, etc.) to help increase compliance with medication regimen. - Review with patient/caregiver the medication schedule in detail. Review when to call their physician for potential medication complications and ensure they verbalize understanding of instructions. Procedures Procedure Name Priority Date/Time Associated Diagnosis Comments EGFR Routine 11/06/2024 2:23 PM CDT Hypertension, essential DIFFERENTIAL AUTO Routine 11/06/2024 2:2 3 PM CDT Hypertension, essential RLS (restless legs syndrome) VITAMIN D 25 HYDROXY Routine 11/06/2024 2:23 PM CDT RLS (restless legs syndrome) Body mass index (BMI) 33.0-33.9, adult TSH Routine 11/06/2024 2:23 PM CDT Hypertension, essential COMPREHENSIVE METABOLIC PANEL Routine 11/06/2024 2:23 PM CDT Hypertension, essential CBC WITH AUTO DIFFERENTIAL Routine 11/06/2024 2:23 PM CDT Hypertension, essential RLS (restless legs syndrome) LIPID PANEL Routine 11/06/2024 2:23 PM CDT Mixed hyperlipidemia LITHIUM LEVEL Routine 11/06/2024 2:23 PM CDT Bipolar disorder, in partial remission, most recent episode mixed (HCC) PSA SCREEN Routine 11/06/2024 2:23 PM CDT Screening for prostate cancer DRUGS OF ABUSE SCREEN, URINE WITHOUT CONFIRMATION STAT 10/25/2024 5:36 PM CDT URINALYSIS, MICROSCOPIC ONLY STAT 10/25/2024 3:20 PM CDT DRUGS OF ABUSE SCREEN, URINE WITHOUT CONFIRMATION STAT 10/25/2024 3:20 PM CDT URINE CULTURE STAT 10/25/2024 3:20 PM CDT URINALYSIS AND REFLEX TO MICROSCOPIC AND CULTURE STAT 10/25/2024 3:20 PM CDT EGFR STAT 10/25/2024 3:09 PM CDT DIFFERENTIAL AUTO STAT 10/25/2024 3:0 9 PM CDT ACETAMINOPHEN LEVEL STAT 10/25/2024 3 :09 PM CDT SALICYLATE LEVEL STAT 10/25/2024 3:09 PM CDT ETHANOL STAT 10/25/2024 3:09 PM CDT THYROID FUNCTION CASCADE STAT 10/25/2024 3:09 PM CDT COMPREHENSIVE METABOLIC PANEL STAT 10/25/2024 3:09 PM CDT CBC WITH AUTO DIFFERENTIAL STAT 10/25/2024 3:09 PM CDT COVID-19 CORONAVIRUS RNA STAT 10/25/2024 3:09 PM CDT EGFR STAT 10/22/2024 6:46 PM CDT URINALYSIS, MICROSCOPIC ONLY STAT 10/22/2024 6:46 PM CDT DIFFERENTIAL AUTO STAT 10/22/2024 6:4 6 PM CDT SALICYLATE LEVEL STAT 10/22/2024 6:46 PM CDT ACETAMINOPHEN LEVEL STAT 10/22/2024 6 :46 PM CDT DRUGS OF ABUSE SCREEN, URINE WITHOUT CONFIRMATION STAT 10/22/2024 6:46 PM CDT ETHANOL STAT 10/22/2024 6:46 PM CDT THYROID FUNCTION CASCADE STAT 10/22/2024 6:46 PM CDT COMPREHENSIVE METABOLIC PANEL STAT 10/22/2024 6:46 PM CDT CBC WITH AUTO DIFFERENTIAL STAT 10/22/2024 6:46 PM CDT URINE CULTURE STAT 10/22/2024 6:46 PM CDT COVID-19 CORONAVIRUS RNA STAT 10/22/2024 6:46 PM CDT URINALYSIS AND REFLEX TO MICROSCOPIC AND CULTURE STAT 10/22/2024 6:46 PM CDT HEPATITIS C ANTIBODY Routine 01/11/2021 12:09 PM CDT Encounter for hepatitis C screening test for low risk patient from Last 3 Months or Most Recently Relevant to Health Maintenance Results * eGFR (11/06/2024 2:23 PM CDT) eGFR >90 >=60 mL/min/1. 73 m2 Comment: Interpretive Data Reference Interval Normal >/= 90 mL/min/1.73m2 Mildly decreased* 60 - 89 mL/min/1.73m2 Mildly to moderately decreased 45 - 59 mL/min/1.73m2 Moderately to severely decreased 30 - 44 mL/min/1.73m2 Severely decreased 15 - 29 mL/min/1.73m2 Kidney Failure < 15 mL/min/1.73m2 *Relative to young adult level Estimated glomerular filtration rate is determined by the 2020 CKD-EPI equation recommended by the National Kidney Foundation (A Unifying Approach to GFR Estimation: Recommendations of the NKF-ASK Task Force on Reassessing the Inclusion of Race in Diagnosing Kidney Disease, JASN 2020). The CKD-EPI equation should not be used for patients with unstable renal function and has not been validated in children and those over 70. Current interpretive data was last reviewed 2021. Blood 11/06/2024 2:23 PM CDT 11/06/2024 9:25 PM CDT us Kamron Garnett MD LAB BLOOD ORDERABLES Final Result WILLIAM [id number] [address] Department [place] [address] * (ABNORMAL) Differential, auto (11/06/2024 2:23 PM CDT) Neutrophil abs 6.17 1.50 - 6.50 K/cumm Imm gran abs 0.06 0.00 - 0.10 K/cumm [facility] Lymphocyte abs 2.20 0.80 - 3.30 K/cumm [facility] Monocyte abs 1.01(H) 0.20 - 0.80 K/cumm [facility] Eosinophil abs 0.32 0.00 - 0.50 K/cumm [facility] Basophil abs 0.06 0.00 - 0.10 K/cumm [facility] Neutrophil pct 62.8 % CERNER Comment: Interpretive Data Percent cell count reference ranges are not reported, since discordance with absolute values may lead to misinterpretation of CBC data. Current Interpretive Data was last revised on 2017. Imm gran pct 0.6 % [facility] Comment: Interpretive Data Percent cell count reference ranges are not reported, since discordance with absolute values may lead to misinterpretation of CBC data. Current Interpretive Data was last revised on 2017. Lymphocyte pct 22.4 % [facility] Comment: Interpretive Data Percent cell count reference ranges are not reported, since discordance with absolute values may lead to misinterpretation of CBC data. Current Interpretive Data was last revised on 2017. Monocyte pct 10.3 % [facility] Comment: Interpretive Data Percent cell count reference ranges are not reported, since discordance with absolute values may lead to misinterpretation of CBC data. Current Interpretive Data was last revised on 2017. Eosinophil pct 3.3 % [facility] Comment: Interpretive Data Percent cell count reference ranges are not reported, since discordance with absolute values may lead to misinterpretation of CBC data. Current Interpretive Data was last revised on 2017. Basophil pct 0.6 % [facility] Comment: Interpretive Data Percent cell count reference ranges are not reported, since discordance with absolute values may lead to misinterpretation of CBC data. Current Interpretive Data was last revised on 2017. Blood 11/06/2024 2:23 PM CDT 11/06/2024 8:36 PM CDT Kamron Garnett MD LAB BLOOD ORDERABLES Final Result Performing Organization Address City/[facility] Co de Phone Number WILLIAM SHI [id number] [address] [facility] [place], [place] [id number] * PSA screen (11/06/2024 2:23 PM CDT) PSA-Total 1.94 <=5.40 ng/mL Comment: Interpretive Data AGE SEX REFERENCE INTERVAL 0 minutes-150 years Female None 0 minutes-49 years Male None 50-59 years Male 0-3.90 60-69 years Male 0-5.40 70-79 years Male 0-6.20 80-150 years Male 0-6.20 The Denisse PSA Total assay procedure was used. Results from different manufacturers or methods may not be comparable. Serial testing should be performed using the same method. Current interpretive data last revised 21. Blood 11/06/2024 2:23 PM CDT 11/06/2024 8:35 PM CDT Kamron Garnett MD LAB BLOOD ORDERABLES Final Result Performing Organization Address City/[facility] Co de Phone Number WILLIAM SHI [id number] [address] [facility] [place], [place] [id number] * (ABNORMAL) CBC with auto differential (11/06/2024 2:23 PM CDT) WBC 9.82 3.80 - 9.90 K/cumm Hgb 14.4 13.0 - 17.5 g/dL [facility] Hct 45.4 38.9 - 50.3 % [facility] Plt 290 150 - 400 K/cumm [facility] MPV 10.2 9.1 - 12.3 fL [facility] RBC 4.84 4.30 - 5.80 M/cumm [facility] MCV 93.8 81.3 - 96.4 fL [facility] MCH 29.8 27.1 - 33.3 pg [facility] MCHC 31.7(L) 32.3 - 35.7 g/dL [facility] RDW CV 14.6 11.1 - 14.9 % [facility] RDW SD 50.9(H) 35.7 - 48.1 fL [facility] NRBC abs 0.00 0.00 - 0.01 K/cumm [facility] Blood 11/06/2024 2:23 PM CDT 11/06/2024 8:36 PM CDT Kamron Garnett MD LAB BLOOD ORDERABLES Final Result WILLIAM [address] [address] [place] [address] * (ABNORMAL) Vitamin D 25 hydroxy (11/06/2024 2:23 PM CDT) Vitamin D 25-OH 10(L) 30 - 80 ng/mL Blood 11/06/2024 2:23 PM CDT 11/06/2024 8:35 PM CDT Kamron Garnett MD LAB BLOOD ORDERABLES Final Result WILLIAM [id number] [address] [facility] [place], [place] [id number] * TSH (11/06/2024 2:23 PM CDT) Thyroid Stimulating Hormone 2.04 0.30 - 4.20 mcIUnit/mL Specimen (Source) Anatomical Location / Laterality
--- OUTSIDE RECORDS SUMMARY | 2024-11-12 02:30 | XMS_ITS | Encounter Summary ---
Author Organization [facility] Healthcare Address [address] [place] [address] Care Team Providers Care Office Bookkeeper Name Role Phone Kamron Garnett MD Primary Care Provider [phone] Becky Sands LCSW Unavailable Unavaila Micaela Braga RN Unavailable [phone] Reason for Visit * Reason Onset Date Comments Hallucinations 10/22/2024 Encounter Details Date Type Department Care Team (Late st Contact Info) Description 10/22/2024 Nurse Triage [facility] Medical Group Primary Care at [address] [address] Kamron Garnett MD [address] [place] [address] [address] [place] [address] Social History Tobacco Use Types Packs/Day Years Used Date Smoking Tobacco: Some Days Cigarettes 0.5 69.4 Started: 07/02/1980 Cigars Smokeless Tobacco: Never Alcohol Use Standard Drinks/Week Comments Not Currently 0 (1 standard drink = 0.6 oz pur e alcohol) [facility] Utilities Answer Date Recorded In the past 12 months has [employer], gas, oil, or water [employer] threatened to shut off services in your home? No 10/23/2024 Social Connection and Isolation Panel [NHANES] A nswer Date Recorded In a typical week, how many times do you talk on the phone with family, friends, or neighbors? Three times a week 10/23/2024 How often do you get togethe r with friends or relatives? Never 10/23/2024 How often do you attend chur or taoist services? Never 10/23/2024 Do you belong to any clubs o r organizations such as cheondoism groups, unions, fraternal or athletic groups, or [...] staff should administer the PHQ-9) 6 05/01/2024 [facility] - Occupational Stress [...] any time in the past 12 m [facility], were you homeless or living in a correction (including now)? No 10/23/2024 Personal Safety Answer [...] file Not on file Not on file documented as of this encounter Miscellaneous Notes * Telephone Encounter - Brandi Bunch RN - 10/22/2024 5:11 PM CDT Pt reports symptoms related to groups of people following him day and night which has affected his quality of life since July. Pt states he was late on his rent around that time so had to move outof his home. Pt reports he has been living in his car with his dog since then and the groups of people are always following him, up to 20 people in cars at a time). He expresses that the people harass him and he is always trying to escape them. Pt reports only sleeping an hour a day because he is worried about the people following him. Pt reports hx of bipolar (dx 2011) but states he has not beenon treatment since 2016. Denies SI/HI. Pt expresses willingness to proceed to [facility] ED at this time. He is on his way at this time and agrees to call back with any questions or follow up. Routing to Kamron Garnett MD clinical pools s FYI and to follow up as indicated. Routing to ACO Managers to see if patient is candidate for service d/t various barriers to health. Reason for Disposition Very strange or paranoid behavior Protocols used: Confusion - [id number] * Telephone Encounter - Brandi Bunch RN - 10/22/2024 5:01 PM CDT Regarding: Hallucination ----- Message from Sabrina Monique sent at 10/22/2024 4:58 PM CDT ----- Hallucination (Visual) Thought of people following him per patient for the past couple weeks. Untreated bi-polar. Hx of OCD, Bi-polar, Borderline personality disorder documented in this encounter Plan of Treatment Not on file documented as of this encounter Goals Goal Patient Goal Type Associated Problems [...] compliance with medication orders ACO Care Management No Micaela Baum RN Note: Problem: Risk for readmission due to lack of medication adherence Interventions: - Review medication list as ordered by discharging physician. Compare this to what patient is currently taking. - Address any barriers to taking discharge medications as ordered. Coordinate with appropriate personnel (farmworker vegetable, physician, pharmacist, etc.) to help increase compliance with medication regimen. - Review with patient/caregiver the medication schedule in detail. Review when to call their physician for potential medication complications and ensure they verbalize understanding of instructions. documented as of this encounter Visit Diagnoses Not on filedocumented in this encounter Care Teams Office Bookkeeper Relationship Specialty Start Date End Date Kamron Garnett MD [address] [place] [address] PCP - General Family Medicine 07/24/23 Becky Sands LCSW Supply Manager 10/23/24 Micaela Baum, RN [address] [place] [address] [address] [place] [address] Reclamation Worker 10/23/24 documented as of this encounter
--- OUTSIDE RECORDS SUMMARY | 2024-11-12 02:30 | XMS_ITS | Encounter Summary ---
Author Organization [facility] Healthcare Address [address] [place] [address] Care Team Providers Care Tableau Report Developer Name Role Phone Kamron Garnett MD Primary Care Provider [phone] Becky Sands LCSW Unavailable Unavaila Micaela Braga RN Unavailable [phone] Encounter Details Date Type Department Care Team (Late st Contact Info) Description 10/23/2024 Results Follow-Up [facility] Emergency Department [address] [place] [address] Gabriel Maddox PA 1 [facility] [place] [address] Social History Tobacco Use Types Packs/Day Years Used Date Smoking Tobacco: Some Days Cigarettes 0.5 69.4 Started: 07/02/1980 Cigars Smokeless Tobacco: Never Alcohol Use Standard Drinks/Week Comments Not Currently 0 (1 standard drink = 0.6 oz pur e alcohol) [facility] Utilities Answer Date Recorded In the past 12 months has [employer], gas, oil, or water company threatened to [...] often do you attend chur ch or voodoo services? Never 10/23/2024 Do you belong to any clubs o r organizations such as congregational groups, unions, fraternal or athletic groups, or [...] staff should administer the PHQ-9) 6 05/01/2024 [facility] - Occupational Stress Questionnaire Answer Date Recorded [...] time in the past [address] [facility], were you homeless or living in a snf (including now)? No 10/23/2024 Personal Safety Answer [...] as of this encounter Miscellaneous Notes * Result Encounter Note - Gabriel Maddox PA - 10/23/2024 6:40 PM CDT Patient eloped documented in this encounter Plan of Treatment Not on file documented as of this encounter Goals Goal Patient Goal Type Associated Problems Recent Progress Patient-Stated? Author ACO SW Goal - Patient can identify and utilize needed community resources ACO Care Management Becky Hernandez, BEHZAD Note: Problem: Need for Community Resources Interventions: - Provide patient/family with a list of appropriate resources for their specific need. - Help to coordinate resources. - Follow up to ensure patient/family has connected with the appropriate resources / personnel. BRITT General Goal - Patient schedules and keeps appointments with all recommended providers ACO Care Management Micaela Rosas, RN Note: Problem: Potential for medical complications [...] medications as ordered. Coordinate with appropriate personnel (post tensioning ironworker helper, physician, pharmacist, etc.) to help increase compliance with medication regimen. - Review with patient/caregiver the medication schedule in detail. Review when to call their physician for potential medication complications and ensure they verbalize understanding of instructions. documented as of this encounter Visit Diagnoses Not on filedocumented in this encounter Care Teams Tableau Report Developer Relationship Specialty Start Date End Date Kamron Garnett MD [address] [facility] [address] [place] [address] PCP - General Family Medicine 07/24/23 Becky Sands LCSW President/[employer] & Live Experiences 10/23/24 Micaela Baum, RN [address] [place] [address] [address] [place] [address] Ingredient Specialist 10/23/24 documented as of this encounter
--- OUTSIDE RECORDS SUMMARY | 2024-11-12 02:30 | XMS_ITS | Encounter Summary ---
Author Organization [facility] Healthcare Address [address] [place] [address] Care Team Providers Care Field Naturalist Name Role Phone Kamron Garnett MD Primary Care Provider [phone] Becky Sands LCSW Unavailable Unavaila Micaela Braga RN Unavailable Encounter Details Date Type Department Care Team (Late st Contact Info) Description 11/11/2024 Results Follow-Up [facility] Medical Group Primary Care at [address] [address] Kamron Garnett MD [address] [place] [address] [address] [place] [address] Social History Tobacco Use Types Packs/Day Years Used Date Smoking Tobacco: Some Days Cigarettes 0.5 69.4 Started: 07/02/1980 Cigars Smokeless Tobacco: Never Alcohol Use Standard Drinks/Week Comments Not Currently 0 (1 standard drink = 0.6 oz pur e alcohol) [facility] Utilities Answer Date Recorded In the past 12 months has [email or web address], gas, oil, or water [employer] threatened to shut off services in your [...] often do you attend chur ch or shinto services? Never 10/23/2024 Do you belong to any clubs o r organizations such as congregation groups, unions, fraternal or athletic groups, or [...] staff should administer the PHQ-9) 6 05/01/2024 [facility] Occup[facility] - Occupational Stress Questionnaire Answer Date [...] any time in the past 12 m [facility], were you homeless or living in a senior living (including now)? No 10/23/2024 Personal Safety Answer [...] on file documented as of this encounter Plan of Treatment Not on file documented as of this encounter Goals Goal Patient Goal Type Associated Problems Recent Progress Patient-Stated? Author ACO SW Goal - Patient can identify and utilize needed community resources ACO Care Management Becky Hernandez LCSW Note: Problem: Need for Community Resources Interventions: [...] medications as ordered. Coordinate with appropriate personnel (canvas worker apprentice, physician, pharmacist, etc.) to help increase compliance with medication regimen. - Review with patient/caregiver the medication schedule in detail. Review when to call their physician for potential medication complications and ensure they verbalize understanding of instructions. documented as of this encounter Visit Diagnoses Not on filedocumented in this encounter Care Teams Field Naturalist Relationship Specialty Start Date End Date Kamron Garnett MD [address] [facility] [address] [place] [address] PCP - General Family Medicine 07/24/23 Becky Sands LCSW Social Scientist 10/23/24 Micaela Baum, RN [address] [place] [address] [address] [place] [address] Cloth Presser 10/23/24 documented as of this encounter
--- NOTE | 2024-11-12 02:31 | ECG_ITS ---
Test Date: 2024-11-12 02:40:26 Measurements Intervals [place] Rate: 87 P: 41 NH: 162 QRS: 2 QRSD: 90 T: 44 QT: 359 QTc: 434 Interpretive Statements SINUS RHYTHM SEPTAL MYOCARDIAL INFARCTION , OF INDETERMINATE AGE [40+ ms Q WAVE IN V1/V2] No previous ECG available for comparison Electronically Signed On 11-12-2024 11:58:04 CDT by Clarence Valencia M.D.
[2024-11-12 02:37] VITALS: O2SAT 96
[2024-11-12 02:38] VITALS: BP 155/83; PULSE 87; RESP 18; TEMP 36.9; O2SAT 97
[2024-11-12] MEDS: ASPIRIN 81 MG CHEWABLE TABLET 324 MG PO (02:39)
[2024-11-12 02:49] LABS: Basophils Absolute Auto 0.1 K/mm3 (0.0-0.1); Basophils Percent Auto 0.8 % (0.2-1.2); Eosinophils Absolute Auto 0.4 K/mm3 (0-0.3); Hematocrit 41.2 % (42.0-52.0); Hemoglobin 13.3 g/dL (14.0-18.0); Immature Granulocyte Absolute 0.05 K/mm3 (0.00-0.031); Immature Granulocyte Percent A 0.5 % (0-0.5); Lymphocytes Absolute Auto 2.07 K/mm3 (0.9-3.2); Lymphocytes Percent Auto 22.5 % (18.3-44.2); Mean Corpuscular HGB Conc 32.3 g/dl (32-36); Mean Platelet Volume 9.2 fl (7.4-10.4); Monocytes Absolute Auto 0.8 K/mm3 (0.1-0.6); Monocytes Percent Auto 8.8 % (2.6-8.5); Neutrophils Absolute Auto 5.8 K/mm3 (1.3-6.7); Neutrophils Percent Auto 63.4 % (45.5-73.1); Platelet Count Result 302 k/mm3 (150-375); Red Blood Count 4.43 M/mm3 (4.6-6.20); Red Cell Distribution Width 14.6 % (11.5-14.5); White Blood Count 9.2 K/mm3 (4.5-10.0)
--- NOTE | 2024-11-12 02:53 | ED_ITS ---
HPI - General Adult General Chief complaint: Chest Pain Stated complaint: heart attack Time Seen by Provider: 11/12/24 02:34 History of Present Illness HPI narrative: This is a 63-year-old homeless male presenting for chest pain. Patient says that he has had chest pain that developed at 1:00 a.m. morning. He was sitting in his car where he lives staring out the window when he developed a sharp stabbing pain centers chest and radiate to the left side of his chest. It is improving. Moderate in intensity. He says this feels like when he had heart attack previously. No exacerbating alleviating factors. Patient does have a cough and shortness of breath. He denies nausea vomiting diaphoresis or exertional component. No swelling of his lower extremities. No history of PE/DVT. Related Data Allergies Allergy/AdvReac Type Severity Reaction Status Date / Time No Known Allergies Allergy Verified 11/12/24 02:39 Exam 2 Narrative: APPEARANCE: No apparent distress. Head: atraumatic. EYES: EOMI, NOSE: Atraumatic NECK: Trachea midline RESPIRATORY: No increased rate of breathing speaking full sentences, scattered wheezing CARDIOVASCULAR: RRR, no peripheral edema ABDOMINAL: Non-distended nontender MUSCULOSKELETAl: No obvious deformities NEURO: Alert. Moving 4/4 extremities SKIN:: Warm, dry. Normal color PSYCHIATRIC: Normal affect Course Vital Signs Vital signs: Vital Signs Pulse Oximetry 96 11/12/24 02:37 Oxygen Delivery Room Air 11/12/24 02:37 Temperature 98.4 F 11/12/24 02:38 Pulse Rate 92 11/12/24 04:40 Respiratory Rate 20 11/12/24 04:40 Blood Pressure 144/87 H 11/12/24 04:40 Pulse Oximetry 97 11/12/24 04:40 Oxygen Delivery Room Air 11/12/24 02:37 Medical Decision Making [facility] Narrative Medical decision making narrative: -Course: 63-year-old male presenting with stabbing chest pain. Pain had resolved by time patient came to the emergency department. Troponins negative x2. Dimer within age adjusted limits. BNP undetectable. Chest x-ray without acute findings. Viral swabs are negative. Patient has been resting comfortably throughout his stay. No current chest pain. Unclear etiology of his pain although cardiac is less likely. He will be discharged to follow-up with his primary care physician for further management -DDX includes but is not limited to: ACS, pneumonia, bronchitis, PE, pneumothorax malingering/secondary gain Independent EKG interpretation: Rhythm [sinus], Rate [87], Parlin -[normal], WA -[normal], QRS [narrow], QTC [normal], T waves -[negative for concerning inversions], ST Segments - [Negative for concerning elevations] Final interpretations: [Normal Sinus Rhythm] Vital Signs Vital Signs: Vital Signs Pulse Oximetry 96 11/12/24 02:37 Oxygen Delivery Room Air 11/12/24 02:37 Temperature 98.4 F 11/12/24 02:38 Pulse Rate 92 11/12/24 04:40 Respiratory Rate 20 11/12/24 04:40 Blood Pressure 144/87 H 11/12/24 04:40 Pulse Oximetry 97 11/12/24 04:40 Oxygen Delivery Room Air 11/12/24 02:37 Lab Data 11/12/24 02:42 11/12/24 02:42 Labs: Lab Results 11/12/24 11/12/24 11/12/24 Range/Units 02:42 03:31 05:47 WBC 9.2 (4.5-10.0) K/mm3 RBC 4.43 L (4.6-6.20) M/mm3 Hgb 13.3 L (14.0-18.0) g/dL Hct 41.2 L (42.0-52.0) % MCV 93.0 (80-100) fl MCH 30.0 (26-34) pg MCHC 32.3 (32-36) g/dl RDW 14.6 H (11.5-14.5) % Plt Count 302 (150-375) k/mm3 MPV 9.2 (7.4-10.4) fl Immature Gran % (Auto) 0.5 (0-0.5) % Neut % (Auto) 63.4 (45.5-73.1) % Lymph % (Auto) 22.5 (18.3-44.2) % Rosebud % (Auto) 8.8 H (2.6-8.5) % Eos % (Auto) 4.0 (0-4.4) % Baso % (Auto) 0.8 (0.2-1.2) % Lymph # (Auto) 2.07 (0.9-3.2) K/mm3 Rosebud # (Auto) 0.8 H (0.1-0.6) K/mm3 Eos # (Auto) 0.4 H (0-0.3) K/mm3 Baso # (Auto) 0.1 (0.0-0.1) K/mm3 Abs Immat Gran (auto) 0.05 H (0.00-0.031) K/mm3 Absolute Neuts (auto) 5.8 (1.3-6.7) K/mm3 Absolute Nucleated RBC 0.000 (0.0-0.012) K/mm3 Nucleated RBC % 0.0 (0.0-0.2) % PT 12.8 (11.1-14.7) Seconds INR 0.9 APTT 28.8 (22.3-36.8) Seconds D-Dimer 0.55 H (<0.48) ug/mL Sodium 138 (137-145) mmol/L Potassium 3.4 (3.4-5.0) mmol/L Chloride 104 (98-107) mmol/L Carbon Dioxide 28 (22-30) mmol/L Anion Gap 6 (4-12) mmol/L BUN 15 (9-20) mg/dL Creatinine 0.83 (0.7-1.3) mg/dL Estim Creat Clear Calc Not Reportable Estimated GFR > 60 (59 - ) Glucose 163 H (65-110) mg/dL Calcium 9.3 (8.4-10.2) mg/dL Total Bilirubin 0.4 (0.2-1.3) mg/dL AST 37 (17-59) U/L ALT 32 (6-50) U/L Alkaline Phosphatase 79 (38-126) U/L Troponin I < 0.012 < 0.012 (0.000-0.034) ng/mL NT-Pro-B Natriuret Pep < 20 (19.9-100) pg/mL Total Protein 7.0 (6.3-8.2) g/dL Albumin 3.9 (3.5-5.1) g/dL Lipase 97 (23-300) U/L Influenza A (RT-PCR) Negative (Negative) Influenza B (RT-PCR) Negative (Negative) RSV (RT-PCR) Negative (Negative) SARS-CoV-2 RNA (RT-PCR) Negative (Negative) Discharge Plan Discharge Clinical Impression: Atypical chest pain Patient Disposition: Home Condition: Stable Instructions: Antibiotic Form, Chest Pain (ED) Additional Instructions: You were seen in the emergency department for chest pain. Your workup here was reassuring. You have not had chest pain since her arrival. Please follow-up your primary care for further management. If you develop any new or worsening symptoms please return to the ED for re-evaluation. Patient Language: Surinamese Follow-up/Referrals: PHYSICIAN,DRAFT ROLLER PICKER [Primary Care Provider] - Quality HEART score for chest pain patients History: slightly suspicious ECG: normal Age: > 45 and < 65 years Risk factors: > or = to 3 risk factors of atherosclerotic disease Troponin: < or = to 1x normal limit Heart score: 3
[2024-11-12 03:00] LABS: INR 0.9; Prothrombin Time 12.8 Seconds (11.1-14.7)
[2024-11-12 03:01] LABS: Partial Thromboplastin Time 28.8 Seconds (22.3-36.8)
[2024-11-12 03:03] LABS: Alanine Aminotransferase 32 U/L (6-50); Albumin Level 3.9 g/dL (3.5-5.1); Alkaline Phosphatase 79 U/L (38-126); Anion Gap 6 mmol/L (4-12); Aspartate Amino Transferase 37 U/L (17-59); Bilirubin,Total 0.4 mg/dL (0.2-1.3); Blood Urea Nitrogen 15 mg/dL (9-20); Calcium 9.3 mg/dL (8.4-10.2); Carbon Dioxide 28 mmol/L (22-30); Chloride 104 mmol/L (98-107); Estimated Glomerular Filt Rate > 60; Glucose 163 mg/dL (65-110); Lipase 97 U/L (23-300); Potassium 3.4 mmol/L (3.4-5.0); Sodium 138 mmol/L (137-145)
[2024-11-12 03:22] LABS: NT Pro B Type Natriuretic Pept < 20 pg/mL (19.9-100)
[2024-11-12 03:24] LABS: Troponin I < 0.012 ng/mL (0.000-0.034)
--- OUTSIDE RECORDS SUMMARY | 2024-11-12 03:31 | XMS_ITS | Encounter Summary ---
Author Organization [facility] Healthcare Address [address] [place] [id number] Care Team Providers Care Shell Fisherman Name Role Phone Kamron Garnett MD Primary Care Provider [phone] Becky Sands LCSW Unavailable Unavaila Micaela Braga RN Unavailable [phone] Encounter Details Date Type Department Care Team (Late st Contact Info) Description 10/23/2024 Results Follow-Up [facility] Emergency Department [address] [place] [address] Gabriel Maddox PA [address] [facility] [place] [address] Social History Tobacco Use Types Packs/Day Years Used Date Smoking Tobacco: Some Days Cigarettes 0.5 69.4 Started: 07/02/1980 Cigars Smokeless Tobacco: Never Alcohol Use Standard Drinks/Week Comments Not Currently 0 (1 standard drink = 0.6 oz pur e alcohol) [facility] Utilities Answer Date Recorded In the past 12 months has [employer], gas, oil, or water company threatened to [...] often do you attend chur ch or mu-ism services? Never 10/23/2024 Do you belong to [...] staff should administer the PHQ-9) 6 05/01/2024 [facility] - Occupational Stress Questionnaire Answer Date [...] any time in the past 12 m [facility], were you homeless or living in a fdc (including now)? No 10/23/2024 Personal Safety Answer [...] medications as ordered. Coordinate with appropriate personnel (agricultural service worker, physician, pharmacist, etc.) to help increase compliance with medication regimen. - Review with patient/caregiver the medication schedule in detail. Review when to call their physician for potential medication complications and ensure they verbalize understanding of instructions. documented as of this encounter Visit Diagnoses Not on filedocumented in this encounter Care Teams Shell Fisherman Relationship Specialty Start Date End Date Kamron Garnett MD [address] [facility] [address] [place] [address] PCP - General Family Medicine 07/24/23 Becky Sands LCSW Design Checker 10/23/24 Micaela Baum, RN [address] [place] [address] [address] [place] [address] Squeegee Tender 10/23/24 documented as of this encounter
--- OUTSIDE RECORDS SUMMARY | 2024-11-12 03:32 | XMS_ITS | Encounter Summary ---
Author Organization [facility] Healthcare Address [address] [place] [address] Care Team Providers Care Manager Interface Name Role Phone Kamron Garnett MD Primary Care Provider [phone] Becky Sands LCSW Unavailable Unavaila Micaela Braga RN Unavailable [phone] Reason for Visit * Reason Onset Date Comments Hallucinations 10/22/2024 Encounter Details Date Type Department Care Team (Late st Contact Info) Description 10/22/2024 Nurse Triage [facility] Medical Group Primary Care at [address] [id number] Kamron Garnett MD [address] [place] [address] [address] [place] [address] Social History Tobacco Use Types Packs/Day Years Used Date Smoking Tobacco: Some Days Cigarettes 0.5 69.4 Started: 07/02/1980 Cigars Smokeless Tobacco: Never Alcohol Use Standard Drinks/Week Comments Not Currently 0 (1 standard drink = 0.6 oz pur e alcohol) [facility] Utilities Answer Date Recorded In the past 12 months has [employer], gas, oil, or water [employer] threatened to shut off services in your home? No 10/23/2024 Social Connection and Isolation Panel [NHANES] A nswer Date Recorded In a typical week, how many times do you talk on the phone with family, friends, or neighbors? Three times a week 10/23/2024 How often do you get togethe r with friends or relatives? Never 10/23/2024 How often do you attend chur or anglican services? Never 10/23/2024 Do you belong to any clubs o r organizations such as yazidi groups, unions, fraternal or athletic groups, or [...] staff should administer the PHQ-9) 6 05/01/2024 [facility] - Occupational Stress [...] any time in the past 12 m [facility], were you homeless or living in a longterm (including now)? No 10/23/2024 Personal Safety Answer [...] SI/HI. Pt expresses willingness to proceed to [facility] ED at this time. He is [...] or paranoid behavior Protocols used: Confusion - [id number] * Telephone Encounter - Brandi Bunch RN [...] medications as ordered. Coordinate with appropriate personnel (ordnance equipment worker, physician, pharmacist, etc.) to help increase compliance with medication regimen. - Review with patient/caregiver the medication schedule in detail. Review when to call their physician for potential medication complications and ensure they verbalize understanding of instructions. documented as of this encounter Visit Diagnoses Not on filedocumented in this encounter Care Teams Manager Interface Relationship Specialty Start Date End Date Kamron Garnett MD [address] [place] [address] PCP - General Family Medicine 07/24/23 Becky Sands LCSW Gill Tender 10/23/24 Micaela Baum, RN [address] [place] [address] [address] [place] [address] [employer] Restorer 10/23/24 documented as of this encounter
--- OUTSIDE RECORDS SUMMARY | 2024-11-12 03:32 | XMS_ITS | Clinical Summary ---
Author Organization [facility] Address [address] [place] [address] Care Team Providers Care Communication Skills Instructor Name Role Phone Kamron Garnett MD Primary Care Provider [phone] Becky Sands LCSW Unavailable Unavaila Micaela Braga RN Unavailable [phone] Allergies No known active allergies Medications [...] 06/05/2023 Assessment & Plan (06/05/2023 11:21 AM FLAME HARDENER): STOP-BANG Score for Obstructive Sleep Apnea from [employer] on 06/05/2023 RESULT SUMMARY: 7 points --- [...] 06/05/2023 Assessment & Plan (06/05/2023 11:39 AM FLAME HARDENER): Discussed quiting, patient previously able to quit for period of 20 yrs Total PY 20 -- 20 yrs x 1 PPD Currently 1 PPD since 2019 Smokes inside home, before sleep Pre-contemplation stage - understands risks At high risk for pneumonia 06/05/2023 Assessment & Plan (06/05/2023 11:47 AM FLAME HARDENER): Smoking status, HTN, obesity - PCV 20 administer to reduce risk Pupbumydey-xmnwlozhh-wefeovu (DPT) vaccination d eclined 06/05/2023 Assessment & Plan (06/05/2023 11:48 AM FLAME HARDENER): Opted for one vaccine at appt 06/05/23 pcv 20 --- declined Tdap Abnormal EKG 05/12/2023 Assessment & Plan (06/05/2023 11:31 AM FLAME HARDENER): Abnormal changes on EKG 05/2023 Follow up NM spect 05/30/23 - 1. Normal myocardial perfusion. 2. No scintigraphic evidence of myocardial ischemia. 3. Normal left ventricular ejection fraction poststress. 4. Normal left ventricular wall motion. Lexiscan Stress test - CONCLUSIONS: 1. Negative Lexiscan pharmacologic stress test for chest pain or EKG changes. Discussed results today Assessment & Plan (05/12/2023 11:29 AM FLAME HARDENER): EKG was abnormal as well on repeat, we will need to get stress test as soon as feasible If symptoms recur, ER Nitroglycerin PRN for chest pain Recommended starting baby aspirin daily Replacing fenofibrate with Crestor Angina pectoris, unspecified 05/08/2023 Assessment & Plan (06/05/2023 11:36 AM FLAME HARDENER): CP with exertion, SOB with exertion, pitting edema of LE bilaterally - pro-BNP - recent stress and lexiscan revealed no abnormalities Cough syncope 05/17/2021 Chronic renal insufficiency, stage II (mild) Assessment & Plan (01/19/2021 11:29 AM CDT): stable Hypertension, essential 12/05/2020 Assessment & Plan (07/26/2023 1:07 PM FLAME HARDENER): Stress test clear from Nov Will watch however, any chest pain or jaw pain with chest pain/pressure, go to ER BP is mildly elevated; given the BP fluctuations, I will increase amlodipine to 7.5 mg daily Continue losartan, hydrochlorothiazide Assessment & Plan (06/05/2023 11:36 AM FLAME HARDENER): BP well controlled today 104/58 Continue current [...] 12/05/2020 Assessment & Plan (06/05/2023 11:37 AM FLAME HARDENER): No SI, SA, HI Prefers being alone [...] then dx with Bipolar and placed on [place]. He states that he was not doing well on the [place] so his provider took him off the Adderall and [place] and he felt better. It was later [...] 24 Assessment & Plan (06/05/2023 11:40 AM FLAME HARDENER): Multiple caffeine sodas (pepsi) daily including before sleep Discussed reducing caffeine intake and relation to palpitations, anxiety\\, weight gain and difficulty sleeping Squamous cell carcinoma of forehead 02/02/2021 02/25/2021 Overview (02/02/2021): Added automatically from request for surgery [id number] SCC (squamous cell carcinoma) 01/21/2021 02/25/2021 Encounters Date Type Department Care Team Description 11/11/2024 Results Follow-Up [facility] Primary Care at [address] [phone] Kamron Garnett MD 11/06/2024 2:23 PM CDT - 11/06/2024 11:59 PM CDT Hospital Encounter [address] [address] Screening for prostate cancer; Bipolar disorder, in partial remission, most recent episode mixed (HCC); Mixed hyperlipidemia; Hypertension, essential; RLS (restless legs syndrome); Body mass index (BMI) 33.0-33.9, adult Discharge Disposition: Discharge to home or self care 11/06/2024 2:15 PM CDT Lab [facility] Outpatient Lab at [address] [phone] Hypertension, essential (Primary Dx) 11/06/2024 1:30 PM CDT Office Visit [facility] Primary Care at [address] [phone] Kamron Garnett MD Bipolar disorder, in partial remission, most recent episode mixed (HCC) (Primary Dx); Mild episode of recurrent major depressive disorder; Screening for prostate cancer; Mixed hyperlipidemia; RLS (restless legs syndrome); Hypertension, essential 11/04/2024 ACO Outreach [facility] Care Organization [address] [place] [address] Micaela Baum RN 10/28/2024 ACO Outreach [address] [address] Micaela Baum RN 10/26/2024 7:54 AM CDT - 10/26/2024 11:59 PM CDT Hospital Encounter [facility] Emergency, Room R Discharge Disposition: Discharge to home or self care 10/25/2024 3:09 PM CDT - 10/26/2024 7:53 AM CDT Emergency [facility] Emergency Department [address] [place] [address] Juan Tobin MD Paranoia (HCC) (Primary Dx); Urinary tract infection in male Discharge Disposition: Discharge to psych hospital or psych unit 10/25/2024 Nurse Triage [facility] Primary Care at [place] [phone] Kamron Garnett MD 10/23/2024 Results Follow-Up [facility] Emergency Department [address] [place] [address] Gabriel Maddox PA 10/23/2024 Telephone [facility] Primary Care at [address] [phone] Kamron Garnett MD Successful Phone Call 10/22/2024 9:51 PM CDT - 10/23/2024 1:09 AM CDT Emergency [facility] Emergency Department [address] [place] [address] Jonathan Hart MD Paranoia (HCC) (Primary Dx) Discharge Disposition: Discharge to home or self care 10/22/2024 6:27 PM CDT - 10/22/2024 7:12 PM CDT Emergency [facility] Emergency Department [address] [place] [address] Kanumuri, Eugene, MD Paranoid delusion (HCC) (Primary Dx) Discharge Disposition: Left Against Medical Advice 10/22/2024 Nurse Triage [facility] Primary Care at [address] [phone] Kamron Garnett MD 10/22/2024 Nurse Triage [facility] Primary Care at [address] [phone] Kamron Garnett MD 10/21/2024 ACO Clinical Pharmacist [facility] Organization [address] [place] [phone] So Wright RP from Last 3 Months [...] 02/02/2021 Added automatically from request for surgery [id number] OCD (obsessive compulsive disorder) Bipolar 1 disorder [...] drink = 0.6 oz pur e alcohol) [facility] Utilities Answer Date Recorded In the [...] often do you attend chur ch or roman catholic services? Never 10/23/2024 Do you belong to any clubs o r organizations such as evangelical groups, unions, fraternal or athletic groups, or [...] staff should administer the PHQ-9) 6 05/01/2024 [facility] of Occupat ional [facility] - Occupational Stress Questionnaire Answer Date [...] any time in the past 12 m [facility], were you homeless or living in a care home (including now)? No 10/23/2024 Personal Safety Answer [...] community resources ACO Care Management Becky Hernandez, GEOLOGICAL SCIENCE TEACHER Note: Problem: Need for Community Resources Interventions: [...] medications as ordered. Coordinate with appropriate personnel (viscosity worker, physician, pharmacist, etc.) to help increase [...] Garnett MD LAB BLOOD ORDERABLES Final Result [facility] [address] [address] Department [place] [address] * (ABNORMAL) Differential, auto (11/06/2024 2:23 PM CDT) Neutrophil abs 6.17 1.50 - 6.50 K/cumm Imm gran abs 0.06 0.00 - 0.10 K/cumm [facility] Lymphocyte abs 2.20 0.80 - 3.30 K/cumm [facility] Monocyte abs 1.01(H) 0.20 - 0.80 K/cumm [facility] Eosinophil abs 0.32 0.00 - 0.50 K/cumm [facility] Basophil abs 0.06 0.00 - 0.10 K/cumm [facility] Neutrophil pct 62.8 % [facility] Comment: Interpretive Data Percent cell [...] Garnett MD LAB BLOOD ORDERABLES Final Result [facility] [address] [address] Department [place] [address] * PSA screen (11/06/2024 2:23 PM CDT) [...] Final Result Performing Organization Address City/State/ZIP Co ca Phone Number WILLIAM [phone] [facility] Department [place] [address] * (ABNORMAL) CBC with auto differential (11/06/2024 2:23 PM CDT) [id number]|2024-11-12 03:32:00|2024-11-12 03:32:00|XMS_ITS|BKG DAEMON|External Medical Summaries|[id number]|" Referral Summary Created on: November 12, 2024 Dick Tan : 1960 Sex: Male Author Organization [facility] Address [address] [place] [phone] Care Team Providers Care Communication Skills Instructor Name Role Phone Kamron Garnett MD Primary Care Provider [phone] Becky Sands LCSW Unavailable Unavaila Micaela Braga RN Unavailable [phone] Encounters Date Type Department Care Team Description 11/11/2024 Results Follow-Up [facility] Primary Care at [address] [phone] Kamron Garnett MD 11/06/2024 2:23 PM CDT - 11/06/2024 11:59 PM CDT Hospital Encounter [facility] [address] [place] [address] Screening for prostate cancer; Bipolar disorder, in partial remission, most recent episode mixed (HCC); Mixed hyperlipidemia; Hypertension, essential; RLS (restless legs syndrome); Body mass index (BMI) 33.0-33.9, adult Discharge Disposition: Discharge to home or self care 11/06/2024 2:15 PM CDT Lab [facility] Outpatient Lab at [address] [phone] Hypertension, essential (Primary Dx) 11/06/2024 1:30 PM CDT Office Visit [facility] Primary Care at [address] [phone] Kamron Garnett MD Bipolar disorder, in partial remission, most recent episode mixed (HCC) (Primary Dx); Mild episode of recurrent major depressive disorder; Screening for prostate cancer; Mixed hyperlipidemia; RLS (restless legs syndrome); Hypertension, essential 11/04/2024 ACO Outreach [address] [address] Micaela Baum RN 10/28/2024 ACO Outreach [address] [address] Micaela Baum RN 10/26/2024 7:54 AM CDT - 10/26/2024 11:59 PM CDT Hospital Encounter [facility] Emergency, Room R Discharge Disposition: Discharge to home or self care 10/25/2024 3:09 PM CDT - 10/26/2024 7:53 AM CDT Emergency [facility] Emergency Department [address] [place] [address] Juan Tobin MD Paranoia (HCC) (Primary Dx); Urinary tract infection in male Discharge Disposition: Discharge to psych hospital or psych unit 10/25/2024 Nurse Triage [facility] Primary Care at [address] [phone] Kamron Garnett MD 10/23/2024 Results Follow-Up [facility] Emergency Department [address] [place] [address] Gabriel Maddox PA 10/23/2024 Telephone [facility] Primary Care at [address] [phone] Kamron Garnett MD Successful Phone Call 10/22/2024 9:51 PM CDT - 10/23/2024 1:09 AM CDT Emergency [facility] Emergency Department [address] [place] [address] Jonathan Hart MD Paranoia (HCC) (Primary Dx) Discharge Disposition: Discharge to home or self care 10/22/2024 Nurse Triage [facility] Primary Care at [address] [phone] Kamron Garnett MD 10/22/2024 6:27 PM CDT - 10/22/2024 7:12 PM CDT Emergency [facility] Emergency Department [address] [place] [address] Eugene Ballard MD Paranoid delusion (HCC) (Primary Dx) Discharge Disposition: Left Against Medical Advice 10/22/2024 Nurse Triage [facility] Primary Care at [address] [phone] Kamron Garnett MD 10/21/2024 ACO Clinical Pharmacist [facility] Accountable Care Organization [address] [place] [phone] So Wright RPh from Last 3 Months [...] in partial remission, most recent episode mixed ([facility]) 11/04/19 25 Active lithium 300 mg capsuleIndication s:Bipolar disorder, in partial remission, most recent episode mixed ([facility]) 11/05/19 25 Active OLANZapine (ZyPREXA) 10 mg tabletIndications :Bipolar disorder, in partial remission, most recent episode mixed ([facility]) 11/04/19 25 Active pramipexole (MIRAPEX) 0.75 mg [...] 06/05/2023 Assessment & Plan (06/05/2023 11:21 AM FLAME HARDENER): STOP-BANG Score for Obstructive Sleep Apnea from [employer] on 06/05/2023 RESULT SUMMARY: 7 points --- [...] 06/05/2023 Assessment & Plan (06/05/2023 11:39 AM FLAME HARDENER): Discussed quiting, patient previously able to quit for period of 20 yrs Total PY 20 -- 20 yrs x 1 PPD Currently 1 PPD since 2019 Smokes inside home, before sleep Pre-contemplation stage - understands risks At high risk for pneumonia 06/05/2023 Assessment & Plan (06/05/2023 11:47 AM FLAME HARDENER): Smoking status, HTN, obesity - PCV 20 administer to reduce risk Hraqrhowgx-xtwqkcrpk-akwswvd (DPT) vaccination d eclined 06/05/2023 Assessment & Plan (06/05/2023 11:48 AM FLAME HARDENER): Opted for one vaccine at appt 06/05/23 pcv 20 --- declined Tdap Abnormal EKG 05/12/2023 Assessment & Plan (06/05/2023 11:31 AM FLAME HARDENER): Abnormal changes on EKG 05/2023 Follow up NM spect 05/30/23 - 1. Normal myocardial perfusion. 2. No scintigraphic evidence of myocardial ischemia. 3. Normal left ventricular ejection fraction poststress. 4. Normal left ventricular wall motion. Lexiscan Stress test - CONCLUSIONS: 1. Negative Lexiscan pharmacologic stress test for chest pain or EKG changes. Discussed results today Assessment & Plan (05/12/2023 11:29 AM FLAME HARDENER): EKG was abnormal as well on repeat, we will need to get stress test as soon as feasible If symptoms recur, ER Nitroglycerin PRN for chest pain Recommended starting baby aspirin daily Replacing fenofibrate with Crestor Angina pectoris, unspecified 05/08/2023 Assessment & Plan (06/05/2023 11:36 AM FLAME HARDENER): CP with exertion, SOB with exertion, pitting edema of LE bilaterally - pro-BNP - recent stress and lexiscan revealed no abnormalities Cough syncope 05/17/2021 Chronic renal insufficiency, stage II (mild) Assessment & Plan (01/19/2021 11:29 AM CDT): stable Hypertension, essential 12/05/2020 Assessment & Plan (07/26/2023 1:07 PM FLAME HARDENER): Stress test clear from Nov Will watch however, any chest pain or jaw pain with chest pain/pressure, go to ER BP is mildly elevated; given the BP fluctuations, I will increase amlodipine to 7.5 mg daily Continue losartan, hydrochlorothiazide Assessment & Plan (06/05/2023 11:36 AM FLAME HARDENER): BP well controlled today 104/58 Continue current [...] 12/05/2020 Assessment & Plan (06/05/2023 11:37 AM FLAME HARDENER): No SI, SA, HI Prefers being alone [...] then dx with Bipolar and placed on [place]. He states that he was not doing well on the [place] so his provider took him off the Adderall and [place] and he felt better. It was later [...] 24 Assessment & Plan (06/05/2023 11:40 AM FLAME HARDENER): Multiple caffeine sodas (pepsi) daily including before sleep Discussed reducing caffeine intake and relation to palpitations, anxiety\\, weight gain and difficulty sleeping Squamous cell carcinoma of forehead 02/02/2021 02/25/2021 Overview (02/02/2021): Added automatically from request for surgery [id number] SCC (squamous cell carcinoma) 01/21/2021 02/25/2021 Immunizations [...] drink = 0.6 oz pur e alcohol) [facility] Utilities Answer Date Recorded In the past 12 months has th e [employer], gas, oil, or water [employer] threatened to shut off services in your home? No 10/23/2024 Social Connection and Isolation Panel [NHANES] A nswer Date Recorded In a typical week, how many times do you talk on the phone with family, friends, or neighbors? Three times a week 10/23/2024 How often do you get togethe r with friends or relatives? Never 10/23/2024 How often do you attend [facility] or roman catholic services? Never 10/23/2024 Do you belong to any clubs o r organizations such as evangelical groups, unions, fraternal or athletic groups, or [...] staff should administer the PHQ-9) 6 05/01/2024 [facility] of Occupat ional Health - Occupational [...] any time in the past 12 m [facility] [place], were you homeless or living in a care home (including now)? No 10/23/2024 Personal Safety Answer [...] medications as ordered. Coordinate with appropriate personnel (viscosity worker, physician, pharmacist, etc.) to help increase [...] MD LAB BLOOD ORDERABLES Final Result [facility] [address] [address] Department [place] [address] * (ABNORMAL) Differential, auto (11/06/2024 2:23 PM CDT) Neutrophil abs 6.17 1.50 - 6.50 K/cumm Imm gran abs 0.06 0.00 - 0.10 K/cumm [facility] Lymphocyte abs 2.20 0.80 - 3.30 K/cumm [facility] Monocyte abs 1.01(H) 0.20 - 0.80 K/cumm [facility] Eosinophil abs 0.32 0.00 - 0.50 K/cumm [facility] Basophil abs 0.06 0.00 - 0.10 K/cumm [facility] Neutrophil pct 62.8 % [facility] Comment: Interpretive Data Percent cell count reference ranges are not reported, since discordance with absolute values may lead to misinterpretation of CBC data. Current Interpretive Data was last revised on 2017. Imm gran pct 0.6 % [facility] Comment: Interpretive Data Percent cell count reference ranges are not reported, since discordance with absolute values may lead to misinterpretation of CBC data. Current Interpretive Data was last revised on 2017. Lymphocyte pct 22.4 % [facility] Comment: Interpretive Data Percent cell count reference ranges are not reported, since discordance with absolute values may lead to misinterpretation of CBC data. Current Interpretive Data was last revised on 2017. Monocyte pct 10.3 % [facility] Comment: Interpretive Data Percent cell count reference ranges are not reported, since discordance with absolute values may lead to misinterpretation of CBC data. Current Interpretive Data was last revised on 2017. Eosinophil pct 3.3 % [facility] Comment: Interpretive Data Percent cell [...] BLOOD ORDERABLES Final Result Performing Organization Address City/[facility] Co de Phone Number WILLIAM SHI [address] [address] [facility] [email or web address] [place], [place] [phone] * PSA screen (11/06/2024 2:23 PM CDT) [...] BLOOD ORDERABLES Final Result Performing Organization Address City/[facility] Co de Phone Number WILLIAM SHI [address] [address] [facility] [email or web address] [place], [place] [id number] * (ABNORMAL) CBC with auto differential (11/06/2024 2:23 PM CDT) WBC 9.82 3.80 - 9.90 K/cumm Hgb 14.4 13.0 - 17.5 g/dL [facility] Hct 45.4 38.9 - 50.3 % [facility] Plt 290 150 - 400 K/cumm [facility] MPV 10.2 9.1 - 12.3 fL [facility] RBC 4.84 4.30 - 5.80 M/cumm [facility] MCV 93.8 81.3 - 96.4 fL [facility] MCH 29.8 27.1 - 33.3 pg [facility] MCHC 31.7(L) 32.3 - 35.7 g/dL [facility] RDW CV 14.6 11.1 - 14.9 % [facility] RDW SD 50.9(H) 35.7 - 48.1 fL [facility] NRBC abs 0.00 0.00 - 0.01 K/cumm [facility] Blood 11/06/2024 2:23 PM CDT 11/06/2024 8:36 PM CDT Kamron Garnett MD LAB BLOOD ORDERABLES Final Result [facility] [address] [address] [place] [address] * (ABNORMAL) Vitamin D 25 hydroxy (11/06/2024 2:23 PM CDT) Vitamin D 25-OH 10(L) 30 - 80 ng/mL Blood 11/06/2024 2:23 PM CDT 11/06/2024 8:35 PM CDT Kamron Garnett MD LAB BLOOD ORDERABLES Final Result [facility] [address] [address] [facility] [email or web address] [place], [place] [phone] * TSH (11/06/2024 2:23 PM CDT) Thyroid Stimulating Hormone 2.04 0.30 - 4.20 mcIUnit/mL Specimen (Source) Anatomical Location / Laterality
--- OUTSIDE RECORDS SUMMARY | 2024-11-12 03:32 | XMS_ITS | Encounter Summary ---
Author Organization [facility] Healthcare Address [address] [place] [address] Care Team Providers Care Long Line Teamster Name Role Phone Kamron Garnett MD Primary Care Provider [phone] Becky Sands LCSW Unavailable Unavaila Micaela Braga RN Unavailable [phone] Encounter Details Date Type Department Care Team (Late st Contact Info) Description 11/11/2024 Results Follow-Up [facility] Group Primary Care at [address] [phone] Kamron Garnett MD [address] [place] [address] [address] [place] [address] Social History Tobacco Use Types Packs/Day Years Used Date Smoking Tobacco: Some Days Cigarettes 0.5 69.4 Started: 07/02/1980 Cigars Smokeless Tobacco: Never Alcohol Use Standard Drinks/Week Comments Not Currently 0 (1 standard drink = 0.6 oz pur e alcohol) [facility] Utilities Answer Date Recorded In the past 12 months has [employer], gas, oil, or water [employer] threatened to shut off services in your [...] often do you attend chur ch or denominational services? Never 10/23/2024 Do you belong to [...] staff should administer the PHQ-9) 6 05/01/2024 [facility] of Occupat ional [facility] - Occupational Stress Questionnaire Answer Date [...] any time in the past 12 m [facility], were you homeless or living in a mcfp (including now)? No 10/23/2024 Personal Safety Answer [...] medications as ordered. Coordinate with appropriate personnel (utility worker, physician, pharmacist, etc.) to help increase compliance with medication regimen. - Review with patient/caregiver the medication schedule in detail. Review when to call their physician for potential medication complications and ensure they verbalize understanding of instructions. documented as of this encounter Visit Diagnoses Not on filedocumented in this encounter Care Teams Long Line Teamster Relationship Specialty Start Date End Date Kamron Garnett MD [address] [facility] [address] [place] [address] PCP - General Family Medicine 07/24/23 Becky Sands LCSW Bridge Toll Collector 10/23/24 Micaela Baum, RN [address] [place] [address] [address] [place] [address] [employer] Yard Supervisor 10/23/24 documented as of this encounter
[2024-11-12 03:40] LABS: D Dimer 0.55 ug/mL (<0.48)
[2024-11-12 04:18] LABS: Influenza A QL RT-PCR Negative (Negative); Influenza B QL RT-PCR Negative (Negative); RSV RNA, RT-PCR Negative (Negative); SARS-CoV-2 RNA PCR Negative (Negative)
[2024-11-12 04:40] VITALS: BP 144/87; PULSE 92; RESP 20; O2SAT 97
--- NOTE | 2024-11-12 05:30 | ECG_ITS ---
Test Date: 2024-11-12 05:45:18 Measurements Intervals [place] Rate: 86 P: 35 PA: 156 QRS: -1 QRSD: 100 T: 31 QT: 367 QTc: 439 Interpretive Statements SINUS RHYTHM ANTEROSEPTAL MYOCARDIAL INFARCTION [40+ ms Q WAVE IN V1-V4], OF INDETERMINATE AGE Compared to ECG 11/12/2024 02:40:26 No significant changes Electronically Signed On 11-12-2024 11:58:19 CDT by Clarence Valencia M.D.
[2024-11-12 06:21] LABS: Troponin I < 0.012 ng/mL (0.000-0.034)
[2024-11-12 06:46] VITALS: BP 165/95; PULSE 87; RESP 19; O2SAT 98
== END 2024-11-12 06:52 | disposition home or self-care (01) ==
PROVIDERS: Emergency Provider Emergency Medicine
DX: R07.89 Other chest pain (principal); R06.02 Shortness of breath; Z20.822 Contact with and (suspected) exposure to COVID-19; Z59.02 Unsheltered homelessness; R94.31 Abnormal electrocardiogram [ECG] [EKG]
CPT/HCPCS: 36415; 71045; 80053; 83690; 83880; 84484; 85025; 85380; 85610; 85730; 87637; 93005; 99284; A9270

== ENCOUNTER 2024-11-22 19:37 | Emergency (ER) | payer MEDICARE, SELFPAY ==
--- NOTE | ~2024-11-22 | CT_ITS ---
EXAMINATION: CTA chest PE protocol DATE: 11/23/2024 7:53 CDT INDICATION: Shortness of breath and tachycardia TECHNIQUE: Computed tomographic angiography (CTA) of the chest was performed with 100 mL Omnipaque-35 0 intravenous contrast. The dose-length product was 736.10 mGy-cm. Maximum intensity projection 3D-re constructions of the aorta and other arteries were constructed by the technologist on a separate work station. COMPARISON: None. FINDINGS/OBSERVATIONS: PULMONARY ARTERIES: No filling defect is identified within the main or proximal pulmonary artery. The main pulmonary artery is not enlarged. THORACIC AORTA: No aneurysmal dilatation or dissection is present. The great vessels are intact LUNGS: Bibasilar atelectasis and interstitial thickening. The lungs are otherwise clear. MEDIASTINUM: No morphologically suspicious or pathologically enlarged lymph nodes are identified with in the mediastinum or bilateral axilla. BONES OF THE CHEST: No acute fracture. No significant degenerative disease. No lytic or blastic lesions. HEART: The heart is enlarged, without pericardial effusion. IMPRESSION: No pulmonary embolus. No thoracic aortic dissection. Bibasilar atelectasis with mild interstitial thickening and cardiomegaly Reviewed, dictated and finalized at location A.
--- NOTE | ~2024-11-22 | XR_ITS ---
XR chest 2V Ordering provider: Lillie Anaya MD History: 64 years Male with . Chest pain . Comparison: November 12, 2024 FINDINGS: MEDIASTINUM: The cardiac silhouette is not enlarged. LUNGS: No infiltrates, effusions or pneumothorax. OTHER: No free air under the diaphragm. Degenerative changes of the spine. Postoperative changes in the lower cervical area. IMPRESSION: No acute cardiopulmonary pathology. Reviewed, dictated and finalized at location A.
--- NOTE | 2024-11-22 19:38 | ECG_ITS ---
Test Date: 2024-11-22 19:42:19 Measurements Intervals [place]ong Rate: 92 P: 9 CT: 159 QRS: -15 QRSD: 84 T: 63 QT: 344 QTc: 426 Interpretive Statements SINUS RHYTHM ANTEROSEPTAL MYOCARDIAL INFARCTION , OF INDETERMINATE AGE [40+ ms Q WAVE IN V1-V4] INFERIOR INFARCT, AGE INDETERMINATE Compared to ECG 11/12/2024 05:45:18 No significant changes Electronically Signed On 11-23-2024 10:08:16 CDT by Kashmir Warner M.D.
[2024-11-22 19:39] VITALS: BP 155/62; PULSE 95; RESP 16; TEMP 36.7; O2SAT 100
--- OUTSIDE RECORDS SUMMARY | 2024-11-22 19:39 | XMS_ITS | Clinical Summary ---
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 Name Role Phone Kamron Garnett MD Primary Care Provider [phone] Micaela Baum RN Unavailable Allergies No known active allergies Medications hydroCHLOROthiazi [...] recent episode mixed (HCC) 11/04/19 25 Active OLANZapine (ZyPREXA) 10 mg tabletIndications [...] morning 90 tablet 3 11/07/19 25 Active lithium 600 mg capsule Take 1 capsule (600 mg total) by mouth 2 (two) times a day with meals 60 capsule 2 11/16/19 25 Active amLODIPine (NORVASC) 5 mg tablet [...] mg tablet 11/04/19 25 025 Discontinued(R eorder) lithium 300 mg capsuleIndication s:Bipolar disorder, in partial remission, most recent episode mixed (HCC) 11/05/19 25 025 Discontinued Active Problems Problem Noted Date Diagnosed Date Daytime somnolence 06/05/2023 Assessment & Plan (06/05/2023 11:21 AM LVN): STOP-BANG Score for Obstructive Sleep Apnea from TRAFI on 06/05/2023 RESULT SUMMARY: 7 points --- [...] 06/05/2023 Assessment & Plan (06/05/2023 11:39 AM LVN): Discussed quiting, patient previously able to quit for period of 20 yrs Total PY 20 -- 20 yrs x 1 PPD Currently 1 PPD since 2019 Smokes inside home, before sleep Pre-contemplation stage - understands risks At high risk for pneumonia 06/05/2023 Assessment & Plan (06/05/2023 11:47 AM LVN): Smoking status, HTN, obesity - PCV 20 administer to reduce risk Etyqsyaupl-mqwzwecup-nzgthxg (DPT) vaccination d eclined 06/05/2023 Assessment & Plan (06/05/2023 11:48 AM LVN): Opted for one vaccine at appt 06/05/23 pcv 20 --- declined Tdap Abnormal EKG 05/12/2023 Assessment & Plan (06/05/2023 11:31 AM LVN): Abnormal changes on EKG 05/2023 Follow up NM spect 05/30/23 - 1. Normal myocardial perfusion. 2. No scintigraphic evidence of myocardial ischemia. 3. Normal left ventricular ejection fraction poststress. 4. Normal left ventricular wall motion. Lexiscan Stress test - CONCLUSIONS: 1. Negative Lexiscan pharmacologic stress test for chest pain or EKG changes. Discussed results today Assessment & Plan (05/12/2023 11:29 AM LVN): EKG was abnormal as well on repeat, we will need to get stress test as soon as feasible If symptoms recur, ER Nitroglycerin PRN for chest pain Recommended starting baby aspirin daily Replacing fenofibrate with Crestor Angina pectoris, unspecified 05/08/2023 Assessment & Plan (06/05/2023 11:36 AM LVN): CP with exertion, SOB with exertion, pitting edema of LE bilaterally - pro-BNP - recent stress and lexiscan revealed no abnormalities Cough syncope 05/17/2021 Chronic renal insufficiency, stage II (mild) Assessment & Plan (01/19/2021 11:29 AM CDT): stable Hypertension, essential 12/05/2020 Assessment & Plan (07/26/2023 1:07 PM LVN): Stress test clear from Nov Will watch however, any chest pain or jaw pain with chest pain/pressure, go to ER BP is mildly elevated; given the BP fluctuations, I will increase amlodipine to 7.5 mg daily Continue losartan, hydrochlorothiazide Assessment & Plan (06/05/2023 11:36 AM LVN): BP well controlled today 104/58 Continue current [...] 12/05/2020 Assessment & Plan (06/05/2023 11:37 AM LVN): No SI, SA, HI Prefers being alone [...] then dx with Bipolar and placed on [place]. He states that he was not doing well on the [place] so his provider took him off the Adderall and [place] and he felt better. 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 05/01/20 Assessment & Plan (06/05/2023 11:40 AM LVN): Multiple caffeine sodas (pepsi) daily including before sleep Discussed reducing caffeine intake and relation to palpitations, anxiety\, weight gain and difficulty sleeping Squamous cell carcinoma of forehead 02/02/2021 02/25/2021 Overview (02/02/2021): Added automatically from request for surgery [id number] SCC (squamous cell carcinoma) 01/21/2021 02/25/2021 Encounters Date Type Department Care Team Description 11/14/2024 BRITT IP Outreach [facility] Accountable Care Organization [address] [place] [id number] Natalie Bautista, NOAH 11/11/2024 Results Follow-Up [facility] Primary Care at [address] [phone] Kamron Garnett MD PSA screen, [place] level, Lipid panel, Additional followed-up results: 6 11/06/2024 2:23 PM CDT - 11/06/2024 11:59 PM CDT Hospital Encounter [address] [address] Screening for prostate cancer; Bipolar disorder, in partial remission, most recent episode mixed (HCC); Mixed hyperlipidemia; Hypertension, essential; RLS (restless legs syndrome); Body mass index (BMI) 33.0-33.9, adult Discharge Disposition: Discharge to home or self care 11/06/2024 2:15 PM CDT Lab [facility] Medical [facility] Outpatient Lab at [address] [phone] Hypertension, essential (Primary Dx) 11/06/2024 1:30 PM CDT Office Visit [facility] Primary Care at [address] [phone] Kamron Garnett MD Bipolar disorder, in partial remission, most recent episode mixed (HCC) (Primary Dx); Mild episode of recurrent major depressive disorder; Screening for prostate cancer; Mixed hyperlipidemia; RLS (restless legs syndrome); Hypertension, essential 11/04/2024 ACO Outreach [facility] [address] [address] Micaela Baum RN 10/28/2024 ACO Outreach [address] [address] Micaela Baum RN 10/26/2024 7:54 AM CDT - 10/26/2024 11:59 PM CDT Hospital Encounter [facility] Emergency, Room R Discharge Disposition: Discharge to home or self care 10/25/2024 3:09 PM CDT - 10/26/2024 7:53 AM CDT Emergency [facility] Emergency Department [address] [place] [address] Juan Tobin MD Paranoia (HCC) (Primary Dx); Urinary tract infection in male Discharge Disposition: Discharge to psych hospital or psych unit 10/25/2024 Nurse Triage [facility] Primary Care at [address] [phone] Kamron Garnett MD 10/23/2024 Results Follow-Up [facility] Emergency Department [address] [place] [address] Gabriel Maddox PA Comprehensive metabolic panel, Thyroid Function [place], Ethanol, Additional followed-up results: 7 10/23/2024 Telephone [facility] Primary Care at [address] [phone] Kamron Garnett MD Successful Phone Call 10/22/2024 9:51 PM CDT - 10/23/2024 1:09 AM CDT Emergency [facility] Emergency Department [address] [place] [address] Jonathan Hart MD Paranoia (HCC) (Primary Dx) Discharge Disposition: Discharge to home or self care 10/22/2024 6:27 PM CDT - 10/22/2024 7:12 PM T Emergency [facility] Emergency Department [address] [place] [address] Eugene Ballard MD Paranoid delusion (HCC) (Primary Dx) Discharge Disposition: Left Against Medical Advice 10/22/2024 Nurse Triage [facility] Medical [facility] Primary Care at [address] [phone] Kamron Garnett MD 10/22/2024 Nurse Triage [facility] Primary Care at [address] [phone] Kamron Garnett MD 10/21/2024 ACO Clinical Pharmacist [facility] Organization [address] [place] [id number] [place] [facility] from Last 3 Months Immunizations Immunization Administration [...] 02/02/2021 Added automatically from request for surgery [id number] OCD (obsessive compulsive disorder) Bipolar 1 disorder [...] drink = 0.6 oz pur e alcohol) [facility] Utilities Answer Date Recorded In the past 12 months has [employer], gas, oil, or water [employer] threatened to shut off services in your [...] often do you attend chur ch or spiritism services? Never 10/23/2024 Do you belong to any clubs o r organizations such as roman catholic groups, unions, fraternal or athletic groups, or [...] staff should administer the PHQ-9) 6 05/01/2024 [facility] - Occupational Stress [...] any time in the past 12 m onths, were you homeless or living in a long term (including now)? No 10/23/2024 Personal Safety Answer [...] Lung Cancer Screening 11/19/2011 Covid-19 Vaccine ( season) 2024 09/22/2020, 09/02/2020 Influenza Vaccine (Season [...] Type Associated Problems Recent Progress Patient-Stated? Author BRITT General Goal - Patient schedules and [...] medications as ordered. Coordinate with appropriate personnel (packing floor worker, physician, pharmacist, etc.) to help increase [...] Garnett MD LAB BLOOD ORDERABLES Final Result [facility] [address] Department [place] [address] * (ABNORMAL) Differential, auto (11/06/2024 2:23 PM CDT) Pathologist [facility] Neutrophil abs 6.17 1.50 - 6.50 K/cumm Imm gran abs 0.06 0.00 - 0.10 K/cumm [facility] Lymphocyte abs 2.20 0.80 - 3.30 K/cumm [facility] Monocyte abs 1.01(H) 0.20 - 0.80 K/cumm [facility] Eosinophil abs 0.32 0.00 - 0.50 K/cumm [facility] Basophil abs 0.06 0.00 - 0.10 K/cumm [facility] Neutrophil pct 62.8 % [facility] Comment: Interpretive Data Percent cell count reference ranges are not reported, since discordance with absolute values may lead to misinterpretation of CBC data. Current Interpretive Data was last revised on 2017. Imm gran pct 0.6 % [facility] Comment: Interpretive Data Percent cell count reference ranges are not reported, since discordance with absolute values may lead to misinterpretation of CBC data. Current Interpretive Data was last revised on 2017. Lymphocyte pct 22.4 % [facility] Comment: Interpretive Data Percent cell count reference ranges are not reported, since discordance with absolute values may lead to misinterpretation of CBC data. Current Interpretive Data was last revised on 2017. Monocyte pct 10.3 % [facility] Comment: Interpretive Data Percent cell count reference [...] revised on 2017. Basophil pct 0.6 % [facility] Comment: Interpretive Data Percent cell count reference ranges are not reported, since discordance with absolute values may lead to misinterpretation of CBC data. Current Interpretive Data was last revised on 2017. Blood 11/06/2024 2:23 PM CDT 11/06/2024 8:36 PM CDT us Kamron Garnett MD LAB BLOOD ORDERABLES Final Result Performing Organization Address City/State/[facility] Co ri Phone Number [facility] [address] Department of Laboratories [place], [place] [id number] * PSA screen (11/06/2024 2:23 PM CDT) [...] MD LAB BLOOD ORDERABLES Final Result [facility] [address] [address] [employer] [place] [address] * (ABNORMAL) CBC with auto differential (11/06/2024 2:23 PM CDT) WBC 9.82 3.80 - 9.90 K/cumm Hgb 14.4 13.0 - 17.5 g/dL [facility] Hct 45.4 38.9 - 50.3 % [facility] Plt 290 150 - 400 K/cumm [facility] MPV 10.2 9.1 - 12.3 fL [facility] RBC 4.84 4.30 - 5.80 M/cumm [facility] MCV 93.8 81.3 - 96.4 fL [facility] MCH 29.8 27.1 - 33.3 pg [facility] MCHC 31.7(L) 32.3 - 35.7 g/dL [facility] RDW CV 14.6 11.1 - 14.9 % [facility] RDW SD 50.9(H) 35.7 - 48.1 fL [facility] NRBC abs 0.00 0.00 - 0.01 K/cumm [facility] Blood 11/06/2024 2:23 PM CDT 11/06/2024 8:36 PM CDT Kamron Garnett MD LAB BLOOD ORDERABLES Final Result [facility] [address] [facility] [place], [place] [id number] * (ABNORMAL) Vitamin D 25 hydroxy (11/06/2024 2:23 PM CDT) Vitamin D 25-OH 10(L) 30 - 80 ng/mL Blood 11/06/2024 2:23 PM CDT 11/06/2024 8:35 PM CDT Kamron Garnett MD LAB BLOOD ORDERABLES Final Result Performing Organization Address [facility] Co de Phone Number [facility] [address] [facility] [place] [address] * TSH (11/06/2024 2:23 PM CDT) Thyroid Stimulating Hormone 2.04 0.30 - 4.20 mcIUnit/mL Blood 11/06/2024 2:23 PM CDT 11/06/2024 8:35 PM CDT Kamron Garnett MD LAB BLOOD ORDERABLES Final Result Performing Organization Address [facility] Co de Phone Number [facility] [address] [facility] [place] [address] * (ABNORMAL) [place] level (11/06/2024 2:23 PM CDT) [place] 0.1(L) 0.6 - 1.2 mmol/L Comment:Testing performed by : [facility], [address] [facility] [place] [address] Blood 11/06/2024 2:23 PM CDT 11/07/2024 9:52 AM CDT Kamron Garnett MD LAB BLOOD ORDERABLES Final Result Performing Organization Address [facility] Co de Phone Number [facility] [phone] [address] [facility] [place] [address] * (ABNORMAL) Lipid panel (11/06/2024 2:23 PM CDT) Cholesterol 141 30 - 199 mg/dL Comment: Interpretive Data Ages < or = 19 years Acceptable: <170 mg/dL Borderline high: 170-199 mg/dL High: >or= 200 mg/dL Ages > or = 20 years Desirable: <200 mg/dL Borderline high: 200-239 mg/dL High: >or= 240 mg/dL Literature References: 1. Expert Panel on Integrated Guidelines for Cardiovascular Health and Risk Reduction in Children and Adolescents. Pediatrics 2011;128:S213 2. NCEP Expert Panel. Circulation 2004;110:227 Current Interpretive Data was last revised on 2018. Triglycerides 325(H) <=149 mg/dL [facility] Comment: Interpretive Data Ages < or = 9 years Acceptable: <75 mg/dL Borderline high: 75-99 mg/dL High: >or= 100 mg/dL Ages 10 to 20 years Acceptable: <90 mg/dL Borderline high: 90-129 mg/dL High: >or= 130 mg/dL Ages > or = 20 years Desirable: <150 mg/dL Borderline high: 150-199 mg/dL High: 200-499 mg/dL Very high: >or= 499 mg/dL Literature References: 1. Expert Panel on Integrated Guidelines for Cardiovascular Health and Risk Reduction in Children and Adolescents. Pediatrics 2011;128:S213 2. NCEP Expert Panel. Circulation 2004;110:227 Current Interpretive Data was last revised on 2018. HDL 40 >=40 mg/dL [facility] Comment: Interpretive Data Ages < or = 19 years Acceptable: >45 mg/dL Borderline low: 40-45 mg/dL Low: <40 mg/dL Ages > or = 20 years Desirable: >or= 60 mg/dL Low: <40 mg/dL Literature References: 1. Expert Panel on Integrated Guidelines for Cardiovascular Health and Risk Reduction in Children and Adolescents. Pediatrics 2011;128:S213 2. NCEP Expert Panel. Circulation 2004;110:227 Current Interpretive Data was last revised on 2018. LDL, calculated 51 <=129 mg/dL [facility] Comment: Interpretive Data Ages < or = 19 years Acceptable: <110 mg/dL Borderline high: 110-129 mg/dL High: >or= 130 mg/dL Ages > or = 20 years Optimal: <100 mg/dL Near optimal: 100-129 mg/dL Borderline high: 130-159 mg/dL High: >160 mg/dL Calculated using the French LDL-C estimating equation. This equation was implemented on 2024. Prior to this date LDL-C was estimated using the Friedewald equation. Literature References: 1. Expert Panel on Integrated Guidelines for Cardiovascular Health and Risk Reduction in Children and Adolescents. Pediatrics 2011;128:S213 2. NCEP Expert Panel. Circulation 2004;110:227 3. Manolo Vaughn et al. WOODY Cardiol. 2020 October 30;5(5):540-548. doi: 10.1001/jamacardio.2020.0013 Current Interpretive Data was last revised on 2024. Non-HDL Cholesterol 101 mg/dL [facility] Comment: Interpretive Data Ages < or = 19 years Acceptable: <120 mg/dL Borderline high: 120-144 mg/dL High: >145 mg/dL Ages > or = 20 years When triglycerides are >200 mg/dL, Non-HDL cholesterol is a secondary target of therapy with treatment goals that are 30 mg/dL greater than the LDL cholesterol target. Literature References: 1. Expert Panel on Integrated Guidelines for Cardiovascular Health and Risk Reduction in Children and Adolescents. Pediatrics 2011;128:S213 2. NCEP Expert Panel. Circulation 2004;110:227 Current Interpretive Data was last revised on 2018. Chol/HDL ratio 4 [facility] Blood 11/06/2024 2:23 PM CDT 11/06/2024 8:35 PM CDT us Kamron Garnett MD LAB BLOOD ORDERABLES Final Result [facility] [address] Department [place] [address] * (ABNORMAL) Comprehensive metabolic panel (11/06/2024 2:23 PM CDT) Sodium 141 135 - 145 mmol/L Potassium, pl 3.8 3.3 - 4.9 mmol/L [facility] Chloride 107 97 - 110 mmol/L [facility] CO2 24 22 - 32 mmol/L [facility] Anion gap 10 2 - 15 mmol/L [facility] BUN 11 6 - 25 mg/dL [facility] Creatinine 0.78(L) 0.80 - 1.30 mg/dL [facility] Glucose 107 70 - 199 mg/dL [facility] Comment: Interpretive Data Fasting glucose >/= 126 mg/dl is diagnostic for diabetes. Fasting is defined as no caloric intake for at least 8 hours. Fasting glucose between 100 mg/dl to 125 mg/dl is diagnostic of prediabetes. In a patient with classic symptoms of hyperglycemia or hyperglycemic crisis, a random glucose >/= 200 mg/dl is diagnostic for diabetes. In the absence of unequivocal hyperglycemia, results should be confirmed by repeat testing. The classification and Diagnosis of Diabetes Diabetes Care 2021; 46: S19-S40. Current interpretive data was last revised 2022. Calcium 9.7 8.5 - 10.3 mg/dL [facility] Bilirubin, total 0.3 0.1 - 1.2 mg/dL [facility] Protein, pl 6.7 6.5 - 8.5 g/dL [facility] Albumin 3.7 3.5 - 5.0 g/dL [facility] Alk phos 73 40 - 130 Units/L [facility] ALT 15 7 - 55 Units/L [facility] AST 24 10 - 50 Units/L [facility] Blood 11/06/2024 2:23 PM CDT 11/06/2024 8:35 PM CDT Kamron Garnett MD LAB BLOOD ORDERABLES Final Result [facility] [address] Department [place] [address] * Drugs of Abuse Screen, Urine without Confirmation (10/25/2024 5:36 PM CDT) Pathologist [facility] Amphetamine, ur Not Detected CutOff 500ng/mL Comment: Interpretive Data - Amphetamines: Samples containing greater than 500 ng/mL d-methamphetamine or other cross-reacting amphetamine compounds are reported as positive. Amphetamine immunoassays are subject to significant false positive rates due to cross-reactivity of non-amphetamine drugs. Confirmatory testing required for definitive results. Current Interpretive Data was last reviewed 2023. Barbiturates, ur Not Detected CutOff 200ng/mL [facility] ([place]) Comment: Interpretive Data - Barbiturates: Samples containing greater than 200 ng/mL secobarbital or other cross-reacting barbiturate compounds are reported as positive. False positive and false negative results are possible. Confirmatory testing required for definitive results. Current Interpretive Data was last reviewed 2023. Benzodiazepines, ur Not Detected CutOff 100ng/mL [facility] ([place]) Comment: Interpretive Data - Benzodiazepines: Samples containing greater than 100 ng/mL nordiazepam or other cross-reacting compounds are reported as positive. False positive and false negative results are possible. Confirmatory testing required for definitive results. Current Interpretive Data was last reviewed 2023. Cannabinoids, ur Not Detected CutOff 50 ng/mL [facility] ([place]) Comment: Interpretive Data - Cannabinoids: Samples containing greater than 50 ng/mL delta-9 THC -COOH or other cross- reacting compounds are reported as positive. False positive and false negative results are possible. Confirmatory testing required for definitive results. Current Interpretive Data was last reviewed 2023. Cocaine, ur Not Detected CutOff 150ng/mL [facility] ([place]) Comment: Interpretive Data - Cocaine: Samples containing greater than 150 ng/mL benzoylecgonine or other cross- reacting compounds are reported as positive. False positive and false negative results are possible. Confirmatory testing required for definitive results. Current Interpretive Data was last reviewed 2023. Fentanyl, Ur Not Detected CutOff 5 ng/mL [facility] ([place]) Comment: Interpretive Data - Fentanyl: Samples containing greater than 5 ng/mL norfentanyl, fentanyl, or other cross-reacting fentanyl compounds are reported as positive. False positive and false negative results are possible. Confirmatory testing required for definitive results. Current Interpretive Data was last reviewed 2023. Methadone, ur Not Detected CutOff 300ng/mL [facility] ([place]) Comment: Interpretive Data - Methadone: Samples containing greater than 300 ng/mL d,l-methadone or other cross-reacting compounds are reported as positive. False positive and false negative results are possible. Confirmatory testing required for definitive results. Current Interpretive Data was last reviewed 2023. Opiates, ur Not Detected CutOff 300ng/mL [facility] ([place]) Comment: Interpretive Data - Opiates: Samples containing greater than 300 ng/mL morphine or other cross-reacting compounds are reported as positive. False positive and false negative results are possible. Confirmatory testing required for definitive results. Current Interpretive Data was last reviewed 2023. Oxycodone, ur Not Detected CutOff 100ng/mL [facility] ([place]) Comment: Interpretive Data - Oxycodone: Samples containing greater than 100 ng/mL oxycodone or other cross-reacting compounds are reported as positive. False positive and false negative results are possible. Confirmatory testing required for definitive results. Current Interpretive Data was last reviewed 2023. Phencyclidine, ur Not Detected CutOff 25 ng/mL [facility] ([place]) Comment: Interpretive Data - Phencyclidine: Samples containing greater than 25 ng/mL phencyclidine or other cross-reacting compounds are reported as positive. False positive and false negative results are possible. Confirmatory testing required for definitive results. Current Interpretive Data was last reviewed 2023. Urine Creatinine 45 mg/dL [facility] ([place]) Comment: Interpretive Data Urine Creatinine: < 10 mg/dL is extremely dilute = or > 10 but < 20 mg/dL is dilute = or > 20 mg/dL is normal Current Interpretive Data was last revised on 2017. Urine 10/25/2024 5:36 PM CDT 10/25/2024 5:40 PM CDT [place] [facility] LAB URINE ORDERABLES Meche kaye Result [facility] ([place]) [address] [facility] [place] [address] * (ABNORMAL) Urinalysis reflex to microscopic and culture Urine (10/25/2024 3:20 PM CDT) Color, ur Yellow Yellow Clarity, ur Clear Clear [facility] ([place]) Specific gravity, ur 1.025 1.003 - 1.030 [facility] ([place]) pH, urine 6.0 [facility] ([place]) Comment: Interpretive Data U rine pH is affected by diet, medications, systemic acid-base disturbances, and renal tubular function. pH may affect urinary stone formation. For example, urine pH below 6.0 may help reduce the tendency for calcium phosphate stones and pH greater than 6.0 may reduce the tendency for uric acid stone formation. Source: [facility] Current Interpretive Data was last revised on 2017 Protein, ur ql 1+(A) Negative [facility] ([place]) Glucose, ur ql Negative Negative [facility] ([place]) Ketones, ur Negative Negative [facility] ([place]) Bilirubin, ur Negative Negative [facility] ([place]) Blood, ur Trace(A) Negative [facility] ([place]) Urobilinogen, ur <2.0 <2.0 mg/dL [facility] ([place]) Nitrite, ur Negative Negative [facility] ([place]) Leukocyte esterase, ur Negative Negative [facility] ([place]) UA reflex comment Reflex to microscopic UA will be performed. [facility] ([place]) Urine 10/25/2024 3:20 PM CDT 10/25/2024 3:23 PM CDT Juan Tobin MD LAB MICROBIOLOGY - GENERAL O RDERABLES Final Result [facility] ([place]) [address] [facility] [place] [address] * (ABNORMAL) Drugs of Abuse Screen, Urine without Confirmation (10/25/2024 3:20 PM CDT) Amphetamine, ur Not Detected CutOff 500ng/mL Comment: Interpretive Data - Amphetamines: Samples containing greater than 500 ng/mL d-methamphetamine or other cross-reacting amphetamine compounds are reported as positive. Amphetamine immunoassays are subject to significant false positive rates due to cross-reactivity of non-amphetamine drugs. Confirmatory testing required for definitive results. Current Interpretive Data was last reviewed 2023. Barbiturates, ur Not Detected CutOff 200ng/mL [facility] ([place]) Comment: Interpretive Data - Barbiturates: Samples containing greater than 200 ng/mL secobarbital or other cross-reacting barbiturate compounds are reported as positive. False positive and false negative results are possible. Confirmatory testing required for definitive results. Current Interpretive Data was last reviewed 2023. Benzodiazepines, ur Not Detected CutOff 100ng/mL [facility] ([place]) Comment: Interpretive Data - Benzodiazepines: Samples containing greater than 100 ng/mL nordiazepam or other cross-reacting compounds are reported as positive. False positive and false negative results are possible. Confirmatory testing required for definitive results. Current Interpretive Data was last reviewed 2023. Cannabinoids, ur Not Detected CutOff 50 ng/mL [facility] ([place]) Comment: Interpretive Data - Cannabinoids: Samples containing greater than 50 ng/mL delta-9 THC -COOH or other cross- reacting compounds are reported as positive. False positive and false negative results are possible. Confirmatory testing required for definitive results. Current Interpretive Data was last reviewed 2023. Cocaine, ur Not Detected CutOff 150ng/mL [facility] ([place]) Comment: Interpretive Data - Cocaine: Samples containing greater than 150 ng/mL benzoylecgonine or other cross- reacting compounds are reported as positive. False positive and false negative results are possible. Confirmatory testing required for definitive results. Current Interpretive Data was last reviewed 2023. Fentanyl, Ur Not Detected CutOff 5 ng/mL [facility] ([place]) Comment: Interpretive Data - Fentanyl: Samples containing greater than 5 ng/mL norfentanyl, fentanyl, or other cross-reacting fentanyl compounds are reported as positive. False positive and false negative results are possible. Confirmatory testing required for definitive results. Current Interpretive Data was last reviewed 2023. Methadone, ur Not Detected CutOff 300ng/mL [facility] ([place]) Comment: Interpretive Data - Methadone: Samples containing greater than 300 ng/mL d,l-methadone or other cross-reacting compounds are reported as positive. False positive and false negative results are possible. Confirmatory testing required for definitive results. Current Interpretive Data was last reviewed 2023. Opiates, ur Screen Positive, presumptive (A) CutOff 300ng/mL [facility] ([place]) Comment: Interpretive Data - Opiates: Samples containing greater than 300 ng/mL morphine or other cross-reacting compounds are reported as positive. False positive and false negative results are possible. Confirmatory testing required for definitive results. Current Interpretive Data was last reviewed 2023. Oxycodone, ur Not Detected CutOff 100ng/mL [facility] ([place]) Comment: Interpretive Data - Oxycodone: Samples containing greater than 100 ng/mL oxycodone or other cross-reacting compounds are reported as positive. False positive and false negative results are possible. Confirmatory testing required for definitive results. Current Interpretive Data was last reviewed 2023. Phencyclidine, ur Not Detected CutOff 25 ng/mL [facility] ([place]) Comment: Interpretive Data - Phencyclidine: Samples containing greater than 25 ng/mL phencyclidine or other cross-reacting compounds are reported as positive. False positive and false negative results are possible. Confirmatory testing required for definitive results. Current Interpretive Data was last reviewed 2023. Urine Creatinine 206 mg/dL [facility] ([place]) Comment: Interpretive Data Urine Creatinine: < 10 mg/dL is extremely dilute = or > 10 but < 20 mg/dL is dilute = or > 20 mg/dL is normal Current Interpretive Data was last revised on 2017. Urine 10/25/2024 3:20 PM CDT 10/25/2024 3:24 PM CDT Narrative [facility] ([place]) - 10/25/2024 4:22 PM CDT Drug of Abuse screening is performed by immunoassay for medical purposes only. This is not to be used for Pain Management purposes. Juan Tobin MD LAB URINE ORDERABLES Final R esult [facility] ([place]) 1 [facility] [place] [address] * (ABNORMAL) Urinalysis, microscopic only (10/25/2024 3:20 PM CDT) WBC, ur 11-20(A) 0 - 5 /HPF RBC, ur 3-5(A) 0 - 2 /HPF [facility] ([place]) Epithelial cells, squamous, ur 1-5 0 - 5 /HPF [facility] ([place]) Mucous, ur Present(A) [facility] ([place]) Sperm, ur Present(A) [facility] ([place]) Culture Reflex Comment Reflex to urine culture will be performed. [facility] ([place]) Urine 10/25/2024 3:20 PM CDT 10/25/2024 3:23 PM CDT Juan Tobin MD LAB URINE ORDERABLES Final R esult Performing Organization Address City/[facility]/ZIP Co de Phone Number [facility] ([place]) [address] [place] [address] [place] [address] * Urine culture Urine (10/25/2024 3:20 PM CDT) Report Final Report: Less than 100,000 colonies/mL (clinically insignificant growth based on current clinical standards) Comment:Testing performed by : [facility], [address] [place]., [address] Organism (CLINICALLY INSIGNIFICANT GROWTH [facility] ([place]) Urine 10/25/2024 3:20 PM CDT 10/25/2024 6:11 PM CDT Narrative [facility] ([place]) - 10/26/2024 6:43 PM CDT Urine culture reflexed based upon urinalysis results. Testing performed by [facility] Microbiology Laboratory ([phone]) us Nito Null MD LAB MICROBIOLOGY - GENERAL O RDERABLES Final Result Performing Organization Address [facility] Co de Phone Number [facility] ([place]) [address] [place] [address] [place] [address] * COVID-19 Coronavirus RNA Nasopharyngeal (10/25/2024 3:09 PM CDT) COVID-19 RNA Negative Negative Nasopharyngeal 10/25/2024 3: 09 PM CDT 10/25/2024 3:15 PM CDT Narrative [facility] ([place]) - 10/25/2024 3:47 PM CDT Is the patient experiencing any symptoms consistent with COVID (eg. Fever, cough, shortness of breath)?->No What is the reason for testing?->Screening prior to Behavioral health admission Interpretive data: Testing performed by [facility]. This test is performed using the Sensee Xpert Xpress CoV-2 plus assay. This is a real-time RT-PCR test intended for the qualitative detection of nucleic acid from the SARS-CoV-2. This assay has been cleared by the [facility] Food and Drug administration. The performance characteristics have been verified by [facility]. Results must be considered in the clinical context, and a negative result does not rule out infection. Interpretive data last revised 2024. Interpretive data: Testing performed by [facility]. This test is performed using the Sensee Xpert Xpress CoV-2 plus assay. This is a real-time RT-PCR test intended for the qualitative detection of nucleic acid from the SARS-CoV-2. This assay has been cleared by the [facility] Food and Drug administration. The performance characteristics have been verified by [facility]. Results must be considered in the clinical context, and a negative result does not rule out infection. Interpretive data last revised 2024. Juan Tobin MD LAB MICROBIOLOGY - GENERAL O RDERABLES Final Result [facility] ([place]) 1 [facility] [place] [address] * eGFR (10/25/2024 3:09 PM CDT) eGFR 77 >=60 mL/min/1. 73 m2 Comment: Interpretive Data [...] interpretive data was last reviewed 2021. Blood 10/25/2024 3:09 PM CDT 10/25/2024 3:15 PM CDT Juan Tobin MD LAB BLOOD ORDERABLES Final R esult [facility] ([place]) 1 [facility] [place] [address] * (ABNORMAL) Differential, auto (10/25/2024 3:09 PM CDT) Neutrophil abs 6.87(H) 1.50 - 6.50 K/cumm Imm gran abs 0.04 0.00 - 0.10 K/cumm [facility] ([place]) Lymphocyte abs 1.72 0.80 - 3.30 K/cumm [facility] ([place]) Monocyte abs 0.73 0.20 - 0.80 K/cumm [facility] ([place]) Eosinophil abs 0.14 0.00 - 0.50 K/cumm [facility] ([place]) Basophil abs 0.06 0.00 - 0.10 K/cumm [facility] ([place]) Neutrophil pct 71.9 % [facility] ([place]) Comment: Interpretive Data Percent cell count reference ranges are not reported, since discordance with absolute values may lead to misinterpretation of CBC data. Current Interpretive Data was last revised on 2017. Imm gran pct 0.4 % [facility] ([place]) Comment: Interpretive Data Percent cell count reference ranges are not reported, since discordance with absolute values may lead to misinterpretation of CBC data. Current Interpretive Data was last revised on 2017. Lymphocyte pct 18.0 % [facility] ([place]) Comment: Interpretive Data Percent cell count reference ranges are not reported, since discordance with absolute values may lead to misinterpretation of CBC data. Current Interpretive Data was last revised on 2017. Monocyte pct 7.6 % [facility] ([place]) Comment: Interpretive Data Percent cell count reference ranges are not reported, since discordance with absolute values may lead to misinterpretation of CBC data. Current Interpretive Data was last revised on 2017. Eosinophil pct 1.5 % [facility] ([place]) Comment: Interpretive Data Percent cell count reference ranges are not reported, since discordance with absolute values may lead to misinterpretation of CBC data. Current Interpretive Data was last revised on 2017. Basophil pct 0.6 % [facility] ([place]) Comment: Interpretive Data Percent cell count reference ranges are not reported, since discordance with absolute values may lead to misinterpretation of CBC data. Current Interpretive Data was last revised on 2017. Blood 10/25/2024 3:09 PM CDT 10/25/2024 3:15 PM CDT Juan Tobin MD LAB BLOOD ORDERABLES Final R esult Performing Organization Address City/[facility]/ZIP Co de Phone Number [facility] ([place]) [address] [facility] [place] [address] * Thyroid Function [place] (10/25/2024 3:09 PM CDT) TSH 1.81 0.30 - 4.20 mcIUnit/mL Blood 10/25/2024 3:09 PM CDT 10/25/2024 3:15 PM CDT Juan Tobin MD LAB BLOOD ORDERABLES Final R esult Performing Organization Address City/[facility]/ZIP Co de Phone Number [facility] ([place]) [address] [facility] [place] [address] * (ABNORMAL) CBC with auto differential (10/25/2024 3:09 PM CDT) WBC 9.56 3.80 - 9.90 K/cumm Hgb 14.8 13.0 - 17.5 g/dL [facility] ([place]) Hct 45.5 38.9 - 50.3 % [facility] ([place]) Plt 298 150 - 400 K/cumm [facility] ([place]) MPV 9.3 9.1 - 12.3 fL [facility] ([place]) RBC 4.98 4.30 - 5.80 M/cumm [facility] ([place]) MCV 91.4 81.3 - 96.4 fL [facility] ([place]) MCH 29.7 27.1 - 33.3 pg [facility] ([place]) MCHC 32.5 32.3 - 35.7 g/dL [facility] ([place]) RDW CV 14.6 11.1 - 14.9 % [facility] ([place]) RDW SD 48.9(H) 35.7 - 48.1 fL [facility] ([place]) NRBC abs 0.00 0.00 - 0.01 K/cumm [facility] ([place]) Blood Venous blood specimen / Unknown 10/25/2024 3:09 PM CDT 10/25/2024 3:15 PM CDT Juan Tobin MD LAB BLOOD ORDERABLES Final R esult Performing Organization Address City/[facility] Co de Phone Number [facility] ([place]) 1 [facility] [place] [address] * Ethanol (10/25/2024 3:09 PM CDT) Ethanol <10 <=10 mg/dL Comment: Interpretive Data Legal limit of intoxication > or = 80 mg/dL Levels > or = 400 mg/dL are potentially TOXIC. Current interpretive data was last revised on 2018. Blood 10/25/2024 3:09 PM CDT 10/25/2024 3:15 PM CDT Juan Tobin MD LAB BLOOD ORDERABLES Final R esult [facility] ([place]) [address] [facility] [place] [address] * Acetaminophen level (10/25/2024 3:09 PM CDT) Acetaminophen <5 <=5 mcg/mL Comment: Markedly elevated levels of Acetaminophen and it's metabolites may lead to false low test results for cholesterol, HDL, triglycerides and uric acid with the manufacturers test methods used by our lab. Interpretive Data Significant hepatic injury may occur and treatment with n-acetyl cysteine is generally recommended if the acetaminophen level exceeds: 150 mcg/mL at 4 hours after ingestion 75 mcg/mL at 8 hours after ingestion 38 mcg/mL at 12 hours after ingestion 19 mcg/mL at 16 hours after ingestion Consult toxicology or poison control ([phone]) for unknown ingestion time. Current interpretive data was last revised 2023. Blood 10/25/2024 3:09 PM CDT 10/25/2024 3:15 PM CDT Juan Tobin MD LAB BLOOD ORDERABLES Final R esult Performing Organization Address [facility] Co de Phone Number [facility] ([place]) 1 [facility] [place] [address] * Salicylate level (10/25/2024 3:09 PM CDT) Salicylate <5.0 <=5.0 mg/dL Comment: Interpretive Data Toxic: 30 mg/dL or greater. Current interpretive data was last revised 2023. Blood 10/25/2024 3:09 PM CDT 10/25/2024 3:15 PM CDT Juan Tobin MD LAB BLOOD ORDERABLES Final R esult [facility] ([place]) 1 [facility] [place] [address] * Comprehensive metabolic panel (10/25/2024 3:09 PM CDT) Sodium 137 135 - 145 mmol/L Potassium, pl 3.7 3.3 - 4.9 mmol/L [facility] ([place]) Chloride 101 97 - 110 mmol/L [facility] ([place]) CO2 26 22 - 32 mmol/L [facility] ([place]) Anion gap 10 2 - 15 mmol/L [facility] ([place]) BUN 14 6 - 25 mg/dL [facility] ([place]) Creatinine 1.09 0.80 - 1.30 mg/dL [facility] ([place]) Glucose 98 70 - 199 mg/dL [facility] ([place]) Comment: Interpretive Data Fasting glucose >/= 126 mg/dl is diagnostic for diabetes. Fasting is defined as no caloric intake for at least 8 hours. Fasting glucose between 100 mg/dl to 125 mg/dl is diagnostic of prediabetes. In a patient with classic symptoms of hyperglycemia or hyperglycemic crisis, a random glucose >/= 200 mg/dl is diagnostic for diabetes. In the absence of unequivocal hyperglycemia, results should be confirmed by repeat testing. The classification and Diagnosis of Diabetes Diabetes Care 202; 46: S19-S40. Current interpretive data was last revised 2022. Calcium 10.2 8.5 - 10.3 mg/dL [facility] ([place]) Bilirubin, total 0.5 0.1 - 1.2 mg/dL [facility] ([place]) Protein, pl 7.4 6.5 - 8.5 g/dL [facility] ([place]) Albumin 3.8 3.5 - 5.0 g/dL [facility] ([place]) Alk phos 92 40 - 130 Units/L [facility] ([place]) ALT 16 7 - 55 Units/L [facility] ([place]) AST 16 10 - 50 Units/L [facility] ([place]) Blood 10/25/2024 3:09 PM CDT 10/25/2024 3:15 PM CDT Juan Tobin MD LAB BLOOD ORDERABLES Final R esult [facility] ([place]) 1 [facility] [place] [address] * COVID-19 Coronavirus RNA Nasopharyngeal (10/22/2024 6:46 PM CDT) COVID-19 RNA Negative Negative Nasopharyngeal 10/22/2024 6: 46 PM CDT 10/22/2024 6:55 PM CDT [facility] ([place]) - 10/22/2024 7:39 PM CDT Is the patient experiencing any symptoms consistent with COVID (eg. Fever, cough, shortness of breath)?->No What is the reason for testing?->Screening prior to Behavioral health admission Interpretive data: Testing performed by [facility]. This test is performed using the Sensee Xpert Xpress CoV-2 plus assay. This is a real-time RT-PCR test intended for the qualitative detection of nucleic acid from the SARS-CoV-2. This assay has been cleared by the [place] Food and Drug administration. The performance characteristics have been verified by [facility]. Results must be considered in the clinical context, and a negative result does not rule out infection. Interpretive data last revised 2024. Interpretive data: Testing performed by [facility]. This test is performed using the Sensee Xpert Xpress CoV-2 plus assay. This is a real-time RT-PCR test intended for the qualitative detection of nucleic acid from the SARS-CoV-2. This assay has been cleared by the [place] Food and Drug administration. The performance characteristics have been verified by [facility]. Results must be considered in the clinical context, and a negative result does not rule out infection. Interpretive data last revised 2024. Eugene Ballard MD LAB MICROBIOLOGY - GENERAL ORD ERABLES Final Result [facility] ([place]) 1 [facility] [place] [address] * eGFR (10/22/2024 6:46 PM CDT) eGFR 73 >=60 mL/min/1. 73 m2 Comment: Interpretive Data [...] interpretive data was last reviewed 2021. Blood 10/22/2024 6:46 PM CDT 10/22/2024 6:55 PM CDT us Eugene Ballard MD LAB BLOOD ORDERABLES Final Res ult [facility] ([place]) 1 [facility] [place] [address] * Differential, auto (10/22/2024 6:46 PM CDT) Neutrophil abs 4.88 1.50 - 6.50 K/cumm Imm gran abs 0.02 0.00 - 0.10 K/cumm [facility] ([place]) Lymphocyte abs 1.78 0.80 - 3.30 K/cumm [facility] ([place]) Monocyte abs 0.57 0.20 - 0.80 K/cumm [facility] ([place]) Eosinophil abs 0.16 0.00 - 0.50 K/cumm [facility] ([place]) Basophil abs 0.05 0.00 - 0.10 K/cumm [facility] ([place]) Neutrophil pct 65.4 % [facility] ([place]) Comment: Interpretive Data Percent cell count reference ranges are not reported, since discordance with absolute values may lead to misinterpretation of CBC data. Current Interpretive Data was last revised on 2017. Imm gran pct 0.3 % [facility] ([place]) Comment: Interpretive Data Percent cell count reference ranges are not reported, since discordance with absolute values may lead to misinterpretation of CBC data. Current Interpretive Data was last revised on 2017. Lymphocyte pct 23.9 % [facility] ([place]) Comment: Interpretive Data Percent cell count reference ranges are not reported, since discordance with absolute values may lead to misinterpretation of CBC data. Current Interpretive Data was last revised on 2017. Monocyte pct 7.6 % [facility] ([place]) Comment: Interpretive Data Percent cell count reference ranges are not reported, since discordance with absolute values may lead to misinterpretation of CBC data. Current Interpretive Data was last revised on 2017. Eosinophil pct 2.1 % [facility] ([place]) Comment: Interpretive Data Percent cell count reference ranges are not reported, since discordance with absolute values may lead to misinterpretation of CBC data. Current Interpretive Data was last revised on 2017. Basophil pct 0.7 % [facility] ([place]) Comment: Interpretive Data Percent cell count reference ranges are not reported, since discordance with absolute values may lead to misinterpretation of CBC data. Current Interpretive Data was last revised on 2017. Blood 10/22/2024 6:46 PM CDT 10/22/2024 6:55 PM CDT Eugene Ballard MD LAB BLOOD ORDERABLES Final Res ult Performing Organization Address City/[facility]/ZIP Co de Phone Number [facility] ([place]) [address] [facility] [place] [address] * Thyroid Function [place] (10/22/2024 6:46 PM CDT) TSH 1.24 0.30 - 4.20 mcIUnit/mL Blood 10/22/2024 6:46 PM CDT 10/22/2024 6:55 PM CDT Eugene Ballard MD LAB BLOOD ORDERABLES Final Res ult [facility] ([place]) [address] [facility] [place] [address] * (ABNORMAL) Urinalysis reflex to microscopic and culture Urine (10/22/2024 6:46 PM CDT) Color, ur Yellow Yellow Clarity, ur Turbid(A) Clear [facility] ([place]) Specific gravity, ur 1.030 1.003 - 1.030 [facility] ([place]) pH, urine 6.0 [facility] ([place]) Comment: Interpretive Data U rine pH is affected by diet, medications, systemic acid-base disturbances, and renal tubular function. pH may affect urinary stone formation. For example, urine pH below 6.0 may help reduce the tendency for calcium phosphate stones and pH greater than 6.0 may reduce the tendency for uric acid stone formation. Source: [facility] Current Interpretive Data was last revised on 2017 Protein, ur ql Trace Negative [facility] ([place]) Glucose, ur ql Negative Negative [facility] ([place]) Ketones, ur Negative Negative [facility] ([place]) Bilirubin, ur Negative Negative [facility] ([place]) Blood, ur Negative Negative [facility] ([place]) Urobilinogen, ur <2.0 <2.0 mg/dL [facility] ([place]) Nitrite, ur Negative Negative [facility] ([place]) Leukocyte esterase, ur 1+(A) Negative [facility] ([place]) UA reflex comment Reflex to microscopic [facility]A will be performed. [facility] Urine 10/22/2024 6:46 PM CDT 10/22/2024 6:55 PM CDT us Eugene Ballard MD LAB MICROBIOLOGY - GENERAL ORD ERABLES Final Result [facility] ([place] 1 [facility] [place] [address] * (ABNORMAL) CBC with auto differential (10/22/2024 6:46 PM CDT) WBC 7.46 3.80 - 9.90 K/cumm Hgb 14.5 13.0 - 17.5 g/dL [facility] ([place]) Hct 44.0 38.9 - 50.3 % [facility] ([place]) Plt 303 150 - 400 K/cumm [facility] ([place]) MPV 9.0(L) 9.1 - 12.3 fL [facility] ([place]) RBC 4.77 4.30 - 5.80 M/cumm [facility] ([place]) MCV 92.2 81.3 - 96.4 fL [facility] ([place]) MCH 30.4 27.1 - 33.3 pg [facility] ([place]) MCHC 33.0 32.3 - 35.7 g/dL [facility] ([place]) RDW CV 15.0(H) 11.1 - 14.9 % [facility] ([place]) RDW SD 50.8(H) 35.7 - 48.1 fL [facility] ([place]) NRBC abs 0.00 0.00 - 0.01 K/cumm [facility] ([place]) Blood Venous blood specimen / Unknown 10/22/2024 6:46 PM CDT 10/22/2024 6:55 PM CDT Eugene Ballard MD LAB BLOOD ORDERABLES Final Res ult [facility] ([place]) 1 [facility] [place] [address] * (ABNORMAL) Drugs of Abuse Screen, Urine without Confirmation (10/22/2024 6:46 PM CDT) Pathologist [facility] Amphetamine, ur Not Detected CutOff 500ng/mL Comment: Interpretive Data - Amphetamines: Samples containing greater than 500 ng/mL d-methamphetamine or other cross-reacting amphetamine compounds are reported as positive. Amphetamine immunoassays are subject to significant false positive rates due to cross-reactivity of non-amphetamine drugs. Confirmatory testing required for definitive results. Current Interpretive Data was last reviewed 2023. Barbiturates, ur Not Detected CutOff 200ng/mL [facility] ([place]) Comment: Interpretive Data - Barbiturates: Samples containing greater than 200 ng/mL secobarbital or other cross-reacting barbiturate compounds are reported as positive. False positive and false negative results are possible. Confirmatory testing required for definitive results. Current Interpretive Data was last reviewed 2023. Benzodiazepines, ur Not Detected CutOff 100ng/mL [facility] ([place]) Comment: Interpretive Data - Benzodiazepines: Samples containing greater than 100 ng/mL nordiazepam or other cross-reacting compounds are reported as positive. False positive and false negative results are possible. Confirmatory testing required for definitive results. Current Interpretive Data was last reviewed 2023. Cannabinoids, ur Screen Positive, presumptive (A) CutOff 50 ng/mL [facility] ([place]) Comment: Interpretive Data - Cannabinoids: Samples containing greater than 50 ng/mL delta-9 THC -COOH or other cross- reacting compounds are reported as positive. False positive and false negative results are possible. Confirmatory testing required for definitive results. Current Interpretive Data was last reviewed 2023. Cocaine, ur Not Detected CutOff 150ng/mL [facility] ([place]) Comment: Interpretive Data - Cocaine: Samples containing greater than 150 ng/mL benzoylecgonine or other cross- reacting compounds are reported as positive. False positive and false negative results are possible. Confirmatory testing required for definitive results. Current Interpretive Data was last reviewed 2023. Fentanyl, Ur Not Detected CutOff 5 ng/mL [facility] ([place]) Comment: Interpretive Data - Fentanyl: Samples containing greater than 5 ng/mL norfentanyl, fentanyl, or other cross-reacting fentanyl compounds are reported as positive. False positive and false negative results are possible. Confirmatory testing required for definitive results. Current Interpretive Data was last reviewed 2023. Methadone, ur Not Detected CutOff 300ng/mL [facility] ([place]) Comment: Interpretive Data - Methadone: Samples containing greater than 300 ng/mL d,l-methadone or other cross-reacting compounds are reported as positive. False positive and false negative results are possible. Confirmatory testing required for definitive results. Current Interpretive Data was last reviewed 2023. Opiates, ur Not Detected CutOff 300ng/mL [facility] ([place]) Comment: Interpretive Data - Opiates: Samples containing greater than 300 ng/mL morphine or other cross-reacting compounds are reported as positive. False positive and false negative results are possible. Confirmatory testing required for definitive results. Current Interpretive Data was last reviewed 2023. Oxycodone, ur Not Detected CutOff 100ng/mL [facility] ([place]) Comment: Interpretive Data - Oxycodone: Samples containing greater than 100 ng/mL oxycodone or other cross-reacting compounds are reported as positive. False positive and false negative results are possible. Confirmatory testing required for definitive results. Current Interpretive Data was last reviewed 2023. Phencyclidine, ur Not Detected CutOff 25 ng/mL [facility] ([place]) Comment: Interpretive Data - Phencyclidine: Samples containing greater than 25 ng/mL phencyclidine or other cross-reacting compounds are reported as positive. False positive and false negative results are possible. Confirmatory testing required for definitive results. Current Interpretive Data was last reviewed 2023. Urine Creatinine 308 mg/dL [facility] ([place]) Comment: Interpretive Data Urine Creatinine: < 10 mg/dL is extremely dilute = or > 10 but < 20 mg/dL is dilute = or > 20 mg/dL is normal Current Interpretive Data was last revised on 2017. Urine 10/22/2024 6:46 PM CDT 10/22/2024 6:55 PM CDT Narrative [facility] ([place]) - 10/22/2024 7:48 PM CDT Drug of Abuse screening is performed by immunoassay for medical purposes only. This is not to be used for Pain Management purposes. Eugene Ballard MD LAB URINE ORDERABLES Final Res ult [facility] ([place]) 1 [facility] [place] [address] * (ABNORMAL) Urinalysis, microscopic only (10/22/2024 6:46 PM CDT) WBC, ur 11-20(A) 0 - 5 /HPF RBC, ur 11-20(A) 0 - 2 /HPF [facility] ([place]) Epithelial cells, squamous, ur 1-5 0 - 5 /HPF [facility] ([place]) Mucous, ur Present(A) [facility] ([place]) Culture Reflex Comment Reflex to urine culture will be performed. [facility] ([place]) Urine 10/22/2024 6:46 PM CDT 10/22/2024 6:55 PM CDT Eugene Ballard MD LAB URINE ORDERABLES Final Res ult Performing Organization Address City/[facility]/ZIP Co de Phone Number WILLIAM OTERON) 1 [facility] [place] [address] * Urine culture Urine (10/22/2024 6:46 PM CDT) Report Final Report: Less than 100,000 colonies/mL (clinically insignificant growth based on current clinical standards) Comment:Testing performed by : [facility], [address] [place]., [address] Organism (CLINICALLY INSIGNIFICANT GROWTH [facility] ([place]) Urine 10/22/2024 6:46 PM CDT 10/23/2024 12:18 AM CDT Narrative [facility] ([place]) - 10/24/2024 6:40 AM CDT Urine culture reflexed based upon urinalysis results. Testing performed by [facility] Microbiology Laboratory ([phone]) Eugene Ballard MD LAB MICROBIOLOGY - GENERAL ORD ERABLES Final Result Performing Organization Address [facility] Co de Phone Number [facility] ([place]) [address] [place] [address] * Ethanol (10/22/2024 6:46 PM CDT) Ethanol <10 <=10 mg/dL Comment: Interpretive Data Legal limit of intoxication > or = 80 mg/dL Levels > or = 400 mg/dL are potentially TOXIC. Current interpretive data was last revised on 2018. Blood 10/22/2024 6:46 PM CDT 10/22/2024 6:55 PM CDT us Eugene Ballard MD LAB BLOOD ORDERABLES Final Res ult [facility] ([place]) 1 [facility] [place] [address] * Acetaminophen level (10/22/2024 6:46 PM CDT) Acetaminophen <5 <=5 mcg/mL Comment: Markedly elevated levels of Acetaminophen and it's metabolites may lead to false low test results for cholesterol, HDL, triglycerides and uric acid with the manufacturers test methods used by our lab. Interpretive Data Significant hepatic injury may occur and treatment with n-acetyl cysteine is generally recommended if the acetaminophen level exceeds: 150 mcg/mL at 4 hours after ingestion 75 mcg/mL at 8 hours after ingestion 38 mcg/mL at 12 hours after ingestion 19 mcg/mL at 16 hours after ingestion Consult toxicology or poison control ([phone]) for unknown ingestion time. Current interpretive data was last revised 2023. Blood 10/22/2024 6:46 PM CDT 10/22/2024 6:55 PM CDT [place] [facility] LAB BLOOD ORDERABLES Meche l Result Performing Organization Address City/[facility]/ZIP Co de Phone Number [facility] S[facility] [place]) [address] [place] [address] [place] [address] * Salicylate level (10/22/2024 6:46 PM CDT) Salicylate <5.0 <=5.0 mg/dL Comment: Interpretive Data Toxic: 30 mg/dL or greater. Current interpretive data was last revised 2023. Blood 10/22/2024 6:46 PM CDT 10/22/2024 6:55 PM CDT [place] [facility] LAB BLOOD ORDERABLES Meche l Result [facility] ([place]) [address] [facility] [place] [address] * Comprehensive metabolic panel (10/22/2024 6:46 PM CDT) Sodium 140 135 - 145 mmol/L Potassium, pl 3.5 3.3 - 4.9 mmol/L [facility] ([place]) Chloride 103 97 - 110 mmol/L [facility] ([place]) CO2 28 22 - 32 mmol/L [facility] ([place]) Anion gap 10 2 - 15 mmol/L [facility] ([place]) BUN 14 6 - 25 mg/dL [facility] ([place]) Creatinine 1.13 0.80 - 1.30 mg/dL [facility] ([place]) Glucose 104 70 - 199 mg/dL [facility] ([place]) Comment: Interpretive Data Fasting glucose >/= 126 mg/dl is diagnostic for diabetes. Fasting is defined as no caloric intake for at least 8 hours. Fasting glucose between 100 mg/dl to 125 mg/dl is diagnostic of prediabetes. In a patient with classic symptoms of hyperglycemia or hyperglycemic crisis, a random glucose >/= 200 mg/dl is diagnostic for diabetes. In the absence of unequivocal hyperglycemia, results should be confirmed by repeat testing. The classification and Diagnosis of Diabetes Diabetes Care 2021; 46: S19-S40. Current interpretive data was last revised 2022. Calcium 9.7 8.5 - 10.3 mg/dL [facility] ([place]) Bilirubin, total 0.5 0.1 - 1.2 mg/dL [facility] ([place]) Protein, pl 7.1 6.5 - 8.5 g/dL [facility] ([place]) Albumin 3.9 3.5 - 5.0 g/dL [facility] ([place]) Alk phos 92 40 - 130 Units/L [facility] ([place]) ALT 13 7 - 55 Units/L [facility] ([place]) AST 14 10 - 50 Units/L [facility] ([place]) Blood 10/22/2024 6:46 PM CDT 10/22/2024 6:55 PM CDT us Eugene Ballard MD LAB BLOOD ORDERABLES Final Res ult [facility] ([place]) 1 [facility] [place] [address] * Hepatitis C antibody (01/11/2021 12:09 PM CDT) Hep C Ab Nonreactive Nonreactive [facility] ([place]) Comment: Interpretive Data Nonreactive: Antibodies to HCV not detected. Does NOT exclude the possibility of recent exposure to HCV. Equivocal: Equivocal for HCV antibodies. Supplemental molecular testing will be automatically performed to determine infection status in accordance with current CDC screening recommendations. Reactive: Positive for HCV antibodies. This may represent current or past HCV infection. Supplemental molecular testing will be automatically performed to determine current infection status in accordance with current CDC screening recommendations. Interpretive data was last revised on 2019. Testing performed by: [facility], [address] [place] [address]., [id number] Blood specimen (specimen) 01/11/2021 12:09 PM CDT 01/11/2021 3:53 PM CDT Kamron Garnett MD LAB MICROBIOLOGY - GENERAL ORDERABLES Final Result [facility] ([place]) 1 [facility] [place] [address] from Last 3 Months or Most Recently Relevant to Health Maintenance Insurance [employer] MEDICARE PPO [employer] MEDICARE PPO [employer] MEDICARE HMO Care Teams Pig Machine Operator Helper Relationship Specialty Start Date End Date Kamron Garnett MD [address] [place] [address] PCP - General Family Medicine 07/24/23 Micaela Baum RN [address] [place] [address] [address] [place] [address] Email Marketing Specialist 10/23/24
--- OUTSIDE RECORDS SUMMARY | 2024-11-22 19:39 | XMS_ITS | Encounter Summary ---
Author Organization [facility] Healthcare Address [address] [place] [id number] Care Team Providers Care Building Construction Estimator Name Role Phone Kamron Garnett MD Primary Care Provider [phone] Becky Sands LCSW Unavailable Unavaila Micaela Braga RN Unavailable Reason for Visit * Reason Onset Date Comments Hallucinations 10/22/2024 Encounter Details Date Type Department Care Team (Late st Contact Info) Description 10/22/2024 Nurse Triage [facility] Primary Care at [address] [id number] Kamron Garnett MD [address] [place] [address] [address] [place] [address] Social History Tobacco Use Types Packs/Day Years Used Date Smoking Tobacco: Some Days Cigarettes 0.5 69.4 Started: 07/02/1980 Cigars Smokeless Tobacco: Never Alcohol Use Standard Drinks/Week Comments Not Currently 0 (1 standard drink = 0.6 oz pur e alcohol) [facility] Utilities Answer Date Recorded In the past 12 months has [employer], gas, oil, or water [employer] threatened to shut off services in your home? No 10/23/2024 Social Connection and Isolation Panel [NHANES] A nswer Date Recorded In a typical week, how many times do you talk on the phone with family, friends, or neighbors? Three times a week 10/23/2024 How often do you get togethe r with friends or relatives? Never 10/23/2024 How often do you attend chur or synagogue services? Never 10/23/2024 Do you belong to [...] staff should administer the PHQ-9) 6 05/01/2024 [facility] - [...] any time in the past 12 m [facility], were you homeless or living in a group home (including now)? No 10/23/2024 Personal Safety [...] SI/HI. Pt expresses willingness to proceed to [facility] ED at this time. He is [...] or paranoid behavior Protocols used: Confusion - [id number] * Telephone Encounter - Brandi Bunch RN [...] as ordered. Coordinate with appropriate personnel (utility maintenance worker, physician, pharmacist, etc.) to help increase compliance with medication regimen. - Review with patient/caregiver the medication schedule in detail. Review when to call their physician for potential medication complications and ensure they verbalize understanding of instructions. documented as of this encounter Visit Diagnoses Not on filedocumented in this encounter Care Teams Building Construction Estimator Relationship Specialty Start Date End Date Kamron Garnett MD [address] [facility] [place] [address] [place], [place] [id number] PCP - General Family Medicine 07/24/23 Becky Sands, SIMPLEX PRINTER INSTALLER Studio Operation Engineer 10/23/24 11/11/24 Micaela Baum, RN [address] [place] [address] [address] [place] [id number] Transmission Design Engineer 10/23/24 documented as of this encounter
--- OUTSIDE RECORDS SUMMARY | 2024-11-22 19:39 | XMS_ITS | Referral Summary ---
Author Organization [facility] Address [address] [place] [address] Care Team Providers Care Mechanical Service Specialist Name Role Phone Kamron Garnett MD Primary Care Provider [phone] Micaela Baum RN Unavailable [phone] Encounters Date Type Department Care Team Description 11/14/2024 BRITT IP Outreach [facility] Care Organization [address] [place] [address] Natalie Bautista, [place] 11/11/2024 Results Follow-Up [facility] Medical [facility] Primary Care at [address] [phone] Kamron Garnett MD PSA screen, [place] level, Lipid panel, Additional followed-up results: 6 11/06/2024 2:23 PM CDT - 11/06/2024 11:59 PM CDT Hospital Encounter [address] [address] Screening for prostate cancer; Bipolar disorder, in partial remission, most recent episode mixed (HCC); Mixed hyperlipidemia; Hypertension, essential; RLS (restless legs syndrome); Body mass index (BMI) 33.0-33.9, adult Discharge Disposition: Discharge to home or self care 11/06/2024 2:[address] [facility] Medical Group Outpatient Lab at [address] [phone] Hypertension, essential (Primary Dx) 11/06/2024 1:30 PM CDT Office Visit [facility] Primary Care at [address] [phone] Kamron Garnett MD Bipolar disorder, in partial remission, most recent episode mixed (HCC) (Primary Dx); Mild episode of recurrent major depressive disorder; Screening for prostate cancer; Mixed hyperlipidemia; RLS (restless legs syndrome); Hypertension, essential 11/04/2024 ACO Outreach [address] [address] Micaela Baum RN 10/28/2024 [facility] Outreach [address] [address] Micaela Baum RN 10/26/2024 7:54 AM CDT - 10/26/2024 11:59 PM CDT Hospital Encounter [facility] Emergency, Room R Discharge Disposition: Discharge to home or self care 10/25/2024 3:09 PM CDT - 10/26/2024 7:53 AM CDT Emergency [facility] Emergency Department [address] [place] [address] Juan Tobin MD Paranoia ([facility]) (Primary Dx); Urinary tract infection in male Discharge Disposition: Discharge to psych hospital or psych unit 10/25/2024 Nurse Triage [facility] Primary Care at [address] [phone] Kamron Garnett MD 10/23/2024 Results Follow-Up [facility] Emergency Department [address] [place] [address] Gabriel Maddox PA Comprehensive metabolic panel, Thyroid Function [place], Ethanol, Additional followed-up results: 7 10/23/2024 Telephone [facility] Primary Care at [address] [phone] Kamron Garnett MD Successful Phone Call 10/22/2024 9:51 PM CDT - 10/23/2024 1:09 AM CDT Emergency [facility] Emergency Department [address] [place], [place] [id number] Jonathan Hart MD Paranoia ([facility]) (Primary Dx) Discharge Disposition: Discharge to home or self care 10/22/2024 Nurse Triage [facility] Primary Care at [address] [phone] Kamron Garnett MD 10/22/2024 6:27 PM CDT - 10/22/2024 7:12 PM CDT Emergency [facility] Emergency Department [address] [place] [address] Eugene Ballard MD Paranoid delusion (HCC) (Primary Dx) Discharge Disposition: Left Against Medical Advice 10/22/2024 Nurse Triage [facility] Primary Care at [address] [phone] Kamron Garnett MD 10/21/[address] [facility] Organization [address] [place] [address] So Wright RPh from Last 3 Months [...] 06/05/2023 Assessment & Plan (06/05/2023 11:21 AM FULFILLMENT ASSOCIATE): STOP-BANG Score for Obstructive Sleep Apnea from [email or web address] on 06/05/2023 RESULT SUMMARY: 7 points --- [...] 06/05/2023 Assessment & Plan (06/05/2023 11:39 AM FULFILLMENT ASSOCIATE): Discussed quiting, patient previously able to quit for period of 20 yrs Total PY 20 -- 20 yrs x 1 PPD Currently 1 PPD since 2019 Smokes inside home, before sleep Pre-contemplation stage - understands risks At high risk for pneumonia 06/05/2023 Assessment & Plan (06/05/2023 11:47 AM FULFILLMENT ASSOCIATE): Smoking status, HTN, obesity - PCV 20 administer to reduce risk Ksvhltdzio-lmmllwfvp-vdujrtz (DPT) vaccination d eclined 06/05/2023 Assessment & Plan (06/05/2023 11:48 AM FULFILLMENT ASSOCIATE): Opted for one vaccine at appt 06/05/23 pcv 20 --- declined Tdap Abnormal EKG 05/12/2023 Assessment & Plan (06/05/2023 11:31 AM FULFILLMENT ASSOCIATE): Abnormal changes on EKG 05/2023 Follow up NM spect 05/30/23 - 1. Normal myocardial perfusion. 2. No scintigraphic evidence of myocardial ischemia. 3. Normal left ventricular ejection fraction poststress. 4. Normal left ventricular wall motion. Lexiscan Stress test - CONCLUSIONS: 1. Negative Lexiscan pharmacologic stress test for chest pain or EKG changes. Discussed results today Assessment & Plan (05/12/2023 11:29 AM FULFILLMENT ASSOCIATE): EKG was abnormal as well on repeat, we will need to get stress test as soon as feasible If symptoms recur, ER Nitroglycerin PRN for chest pain Recommended starting baby aspirin daily Replacing fenofibrate with Crestor Angina pectoris, unspecified 05/08/2023 Assessment & Plan (06/05/2023 11:36 AM FULFILLMENT ASSOCIATE): CP with exertion, SOB with exertion, pitting edema of LE bilaterally - pro-BNP - recent stress and lexiscan revealed no abnormalities Cough syncope 05/17/2021 Chronic renal insufficiency, stage II (mild) Assessment & Plan (01/19/2021 11:29 AM CDT): stable Hypertension, essential 12/05/2020 Assessment & Plan (07/26/2023 1:07 PM FULFILLMENT ASSOCIATE): Stress test clear from Nov Will watch however, any chest pain or jaw pain with chest pain/pressure, go to ER BP is mildly elevated; given the BP fluctuations, I will increase amlodipine to 7.5 mg daily Continue losartan, hydrochlorothiazide Assessment & Plan (06/05/2023 11:36 AM FULFILLMENT ASSOCIATE): BP well controlled today 104/58 Continue current [...] 12/05/2020 Assessment & Plan (06/05/2023 11:37 AM FULFILLMENT ASSOCIATE): No SI, SA, HI Prefers being alone [...] then dx with Bipolar and placed on [place]. He states that he was not doing well on the [place] so his provider took him off the Adderall and [place] and he felt better. 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 Never 10/23/2024 Do you belong to any clubs o r organizations such as advent groups, unions, fraternal or athletic groups, or [...] staff should administer the PHQ-9) 6 05/01/2024 [facility] Occupat ional [facility] - Occupational Stress [...] as ordered. Coordinate with appropriate personnel (farmworker fur, physician, pharmacist, etc.) to help increase compliance [...] Results * eGFR (11/06/2024 2:23 PM CDT) Pathologist [facility] eGFR >90 >=60 mL/min/1. 73 m2 Comment: [...] MD LAB BLOOD ORDERABLES Final Result WILLIAM [address] Department [place] [address] * (ABNORMAL) Differential, auto (11/06/2024 2:23 PM CDT) Pathologist [facility] Neutrophil abs 6.17 1.50 - 6.50 K/cumm Imm gran abs 0.06 0.00 - 0.10 K/cumm [facility] Lymphocyte abs 2.20 0.80 - 3.30 K/cumm [facility] Monocyte abs 1.01(H) 0.20 - 0.80 K/cumm [facility] Eosinophil abs 0.32 0.00 - 0.50 K/cumm [facility] Basophil abs 0.06 0.00 - 0.10 K/cumm [facility] Neutrophil pct 62.8 % [facility] Comment: Interpretive Data Percent cell count reference ranges are not reported, since discordance with absolute values may lead to misinterpretation of CBC data. Current Interpretive Data was last revised on 2017. Imm gran pct 0.6 % [facility] Comment: Interpretive Data Percent cell count reference ranges are not reported, since discordance with absolute values may lead to misinterpretation of CBC data. Current Interpretive Data was last revised on 2017. Lymphocyte pct 22.4 % [facility] Comment: Interpretive Data Percent cell count reference ranges are not reported, since discordance with absolute values may lead to misinterpretation of CBC data. Current Interpretive Data was last revised on 2017. Monocyte pct 10.3 % [facility] Comment: Interpretive Data Percent cell count reference ranges are not reported, since discordance with absolute values may lead to misinterpretation of CBC data. Current Interpretive Data was last revised on 2017. Eosinophil pct 3.3 % [facility] Comment: Interpretive Data Percent cell count reference ranges are not reported, since discordance with absolute values may lead to misinterpretation of CBC data. Current Interpretive Data was last revised on 2017. Basophil pct 0.6 % [facility] Comment: Interpretive Data Percent cell count reference ranges are not reported, since discordance with absolute values may lead to misinterpretation of CBC data. Current Interpretive Data was last revised on 2017. Blood 11/06/2024 2:23 PM CDT 11/06/2024 8:36 PM CDT Kamron Garnett MD LAB BLOOD ORDERABLES Final Result Performing Organization Address City/State/[facility] Co de Phone Number [place] [phone] [address] Department [place] [address] * PSA screen (11/06/2024 2:23 PM CDT) [...] BLOOD ORDERABLES Final Result Performing Organization Address City/[facility] Co de Phone Number WILLIAM SHI [phone] [place] [address] * (ABNORMAL) CBC with auto differential (11/06/2024 2:23 PM CDT) WBC 9.82 3.80 - 9.90 K/cumm Hgb 14.4 13.0 - 17.5 g/dL [facility] Hct 45.4 38.9 - 50.3 % [facility] Plt 290 150 - 400 K/cumm [facility] MPV 10.2 9.1 - 12.3 fL [facility] RBC 4.84 4.30 - 5.80 M/cumm [facility] MCV 93.8 81.3 - 96.4 fL [facility] MCH 29.8 27.1 - 33.3 pg [facility] MCHC 31.7(L) 32.3 - 35.7 g/dL [facility] RDW CV 14.6 11.1 - 14.9 % [facility] SD 50.9(H) 35.7 - 48.1 fL [facility] NRBC abs 0.00 0.00 - 0.01 K/cumm [facility] Blood 11/06/2024 2:23 PM CDT 11/06/2024 8:36 PM CDT Kamron Garnett MD LAB BLOOD ORDERABLES Final Result Performing Organization Address City/[facility] Co de Phone Number WILLIAM SHI [phone] [employer] [place], [place] [id number] * (ABNORMAL) Vitamin D 25 hydroxy (11/06/2024 2:23 PM CDT) Vitamin D 25-OH 10(L) 30 - 80 ng/mL Blood 11/06/2024 2:23 PM CDT 11/06/2024 8:35 PM CDT Kamron Garnett MD LAB BLOOD ORDERABLES Final Result Performing Organization Address [facility] Co de Phone Number WILLIAM SHI [phone] [address] [employer] [place] [address] * TSH (11/06/2024 2:23 PM CDT) Thyroid Stimulating Hormone 2.04 0.30 - 4.20 mcIUnit/mL Blood 11/06/2024 2:23 PM CDT 11/06/2024 8:35 PM CDT Kamron Garnett MD LAB BLOOD ORDERABLES Final Result Performing Organization Address [facility] de Phone Number [place] SHI [phone] [address] [employer] [place] [address] * (ABNORMAL) [place] level (11/06/2024 2:23 PM CDT) [place] 0.1(L) 0.6 - 1.2 mmol/L Comment:Testing performed by : [facility], [address] [place] [address], [place]., [address] Blood 11/06/2024 2:23 PM CDT 11/07/2024 9:52 AM CDT Kamron Garnett MD LAB BLOOD ORDERABLES Final Result Performing Organization Address [facility] Co de Phone Number WILLIAM SHI [phone] [address] [employer] [place] [address] * (ABNORMAL) Lipid panel (11/06/2024 [...] on 2018. Triglycerides 325(H) <=149 mg/dL WILL[facility] SHI Comment: Interpretive Data Ages [...] 2018. LDL, calculated 51 <=129 mg/dL WILL[facility] SHI Comment: Interpretive Data Ages [...] 3. Manolo Vaughn et al. WOODY Cardiol. 2019October 30;5(5):540-548. doi: 10.1001/jamacardio.2020.0013 Current Interpretive Data was [...] Final Result Performing Organization Address City/State/ZIP Co il Phone Number [facility] [phone] [address] Department [place] [address] * (ABNORMAL) Comprehensive metabolic panel (11/06/2024 2:23 [...] CH AST 24 10 - 50 Units/L [facility] Blood 11/06/2024 2:23 PM CDT 11/06/2024 8:35 PM CDT Kamron Garnett MD LAB BLOOD ORDERABLES Final Result WILLIAM [id number] [address] Department [place] [address] * Drugs of Abuse Screen, Urine without Confirmation (10/25/2024 5:36 PM CDT) Pathologist [facility] Amphetamine, ur Not Detected CutOff 500ng/mL Comment: Interpretive Data - Amphetamines: Samples containing greater than 500 ng/mL d-methamphetamine or other cross-reacting amphetamine compounds are reported as positive. Amphetamine immunoassays are subject to significant false positive rates due to cross-reactivity of non-amphetamine drugs. Confirmatory testing required for definitive results. Current Interpretive Data was last reviewed 2023. Barbiturates, ur Not Detected CutOff 200ng/mL [facility] ([place]) Comment: Interpretive Data - Barbiturates: [...] ur Not Detected CutOff 100ng/mL [facility] ([place]) Comment: Interpretive Data - Oxycodone: Samples containing greater than 100 ng/mL oxycodone or other cross-reacting compounds are reported as positive. False positive and false negative results are possible. Confirmatory testing required for definitive results. Current Interpretive Data was last reviewed 2023. Phencyclidine, ur Not Detected CutOff 25 ng/mL [facility] ([place]) Comment: Interpretive Data - Phencyclidine: Samples containing greater than 25 ng/mL phencyclidine or other cross-reacting compounds are reported as positive. False positive and false negative results are possible. Confirmatory testing required for definitive results. Current Interpretive Data was last reviewed 2023. Urine Creatinine 45 mg/dL [facility] ([place]) Comment: Interpretive Data Urine Creatinine: < 10 mg/dL is extremely dilute = or > 10 but < 20 mg/dL is dilute = or > 20 mg/dL is normal Current Interpretive Data was last revised on 2017. Urine 10/25/2024 5:36 PM CDT 10/25/2024 5:40 PM CDT [place] ANDRADE LAB URINE ORDERABLES Meche kaye Result [facility] ([place]) [address] [facility] [place] [address] * (ABNORMAL) Urinalysis reflex to microscopic and culture Urine (10/25/2024 3:20 PM CDT) Color, ur Yellow Yellow Clarity, ur Clear Clear WILL[facility] ([place]) Specific gravity, ur 1.025 1.003 - 1.030 [facility] ([place]) pH, urine 6.0 [facility] ([place]) Comment: Interpretive Data U rine pH is affected by diet, medications, systemic acid-base disturbances, and renal tubular function. pH may affect urinary stone formation. For example, urine pH below 6.0 may help reduce the tendency for calcium phosphate stones and pH greater than 6.0 may reduce the tendency for uric acid stone formation. Source: [facility] Current Interpretive Data was last revised on [...] RDERABLES Final Result [facility] ([place]) [address] [facility] [place] [address] * (ABNORMAL) Drugs of Abuse Screen, Urine without Confirmation (10/25/2024 3:20 PM CDT) Pathologist [facility] Amphetamine, ur Not Detected CutOff 500ng/mL Comment: [...] Not Detected CutOff 25 ng/mL [facility] ([place]) Comment: Interpretive Data - Phencyclidine: Samples containing greater than 25 ng/mL phencyclidine or other cross-reacting compounds are reported as positive. False positive and false negative results are possible. Confirmatory testing required for definitive results. Current Interpretive Data was last reviewed 2023. Urine Creatinine 206 mg/dL [facility] ([place]) Comment: Interpretive Data Urine Creatinine: < 10 mg/dL is extremely dilute = or > 10 but < 20 mg/dL is dilute = or > 20 mg/dL is normal Current Interpretive Data was last revised on 2017. Urine 10/25/2024 3:20 PM CDT 10/25/2024 3:24 PM CDT Narrative [facility] ([place]) - 10/25/2024 4:22 PM CDT Drug of Abuse screening is performed by immunoassay for medical purposes only. This is not to be used for Pain Management purposes. Juan Tobin MD LAB URINE ORDERABLES Final R esult [facility] ([place]) 1 [facility] Department of Laboratories [place], [place] [id number] * (ABNORMAL) Urinalysis, microscopic only (10/25/2024 3:20 PM CDT) WBC, ur 11-20(A) 0 - 5 /HPF RBC, ur 3-5(A) 0 - 2 /HPF [facility] ([place]) Epithelial cells, squamous, ur 1-5 0 - 5 /HPF [facility] ([place]) Mucous, ur Present(A) [facility] ([place]) Sperm, ur Present(A) [facility] ([place]) Culture Reflex Comment Reflex to urine culture will be performed. [facility] ([place]) Urine 10/25/2024 3:20 PM CDT 10/25/2024 3:23 PM CDT Juan Tobin MD LAB URINE ORDERABLES Final R esult Performing Organization Address [facility]/ZIP Co de Phone Number [facility] ([place]) [address] [place] [address] [place] [address] * Urine culture Urine (10/25/2024 3:20 PM CDT) Report Final Report: Less than 100,000 colonies/mL (clinically insignificant growth based on current clinical standards) Comment:Testing performed by : [facility], [address] [place] [address] Organism (CLINICALLY INSIGNIFICANT GROWTH [facility] ([place]) Urine 10/25/2024 3:20 PM CDT 10/25/2024 6:11 PM CDT Narrative [facility] ([place]) - 10/26/2024 6:43 PM CDT Urine culture reflexed based upon urinalysis results. Testing performed by [facility] Microbiology Laboratory ([phone]) Nito Null MD LAB MICROBIOLOGY - GENERAL O RDERABLES Final Result Performing Organization Address [facility] Co de Phone Number [facility] ([place] [address] [place] [address] * COVID-19 Coronavirus RNA Nasopharyngeal (10/25/2024 3:09 PM CDT) COVID-19 RNA Negative Negative Nasopharyngeal 10/25/2024 3: 09 PM CDT 10/25/2024 3:15 PM CDT Narrative [facility] ([place]) - 10/25/2024 3:47 PM CDT Is the patient experiencing any symptoms consistent with COVID (eg. Fever, cough, shortness of breath)?->No What is the reason for testing?->Screening prior to Behavioral health admission Interpretive data: Testing performed by [facility]. This test is performed using the K[employer] Xpert Xpress CoV-2 plus assay. This is a real-time RT-PCR test intended for the qualitative detection of nucleic acid from the SARS-CoV-2. This assay has been cleared by the [place] Food and Drug administration. The performance characteristics have been verified by [facility]. Results must be considered in the clinical context, and a negative result does not rule out infection. Interpretive data last revised 2024. Interpretive data: Testing performed by [facility]. This test is performed using the [employer] Xpert Xpress CoV-2 plus assay. This is a real-time RT-PCR test intended for the qualitative detection of nucleic acid from the SARS-CoV-2. This assay has been cleared by the [place] Food and Drug administration. The performance characteristics have been verified by [facility]. Results must be considered in the clinical context, and a negative result does not rule out infection. Interpretive data last revised 2024. Juan Tobin MD LAB MICROBIOLOGY - GENERAL O RDERABLES Final Result [facility] [place]) 1 [facility] Department of Laboratories [place], [place] [id number] * eGFR (10/25/2024 3:09 PM CDT) eGFR [...] LAB BLOOD ORDERABLES Final R esult [facility] ([place]) 1 [facility] [place] [address] * (ABNORMAL) Differential, auto (10/25/2024 3:09 PM CDT) Neutrophil abs 6.87(H) 1.50 - 6.50 K/cumm Imm gran abs 0.04 0.00 - 0.10 K/cumm [facility] ([place]) Lymphocyte abs 1.72 0.80 - 3.30 K/cumm [facility] ([place]) Monocyte abs 0.73 0.20 - 0.80 K/cumm [facility] ([place]) Eosinophil abs 0.14 0.00 - 0.50 K/cumm [facility] ([place]) Basophil abs 0.06 0.00 - 0.10 K/cumm [facility] ([place]) Neutrophil pct 71.9 % [facility] ([place]) Comment: Interpretive Data Percent cell count reference ranges are not reported, since discordance with absolute values may lead to misinterpretation of CBC data. Current Interpretive Data was last revised on 2017. Imm gran pct 0.4 % [facility] ([place]) Comment: Interpretive Data Percent cell count reference ranges are not reported, since discordance with absolute values may lead to misinterpretation of CBC data. Current Interpretive Data was last revised on 2017. Lymphocyte pct 18.0 % [facility] ([place]) Comment: Interpretive Data Percent cell count reference ranges are not reported, since discordance with absolute values may lead to misinterpretation of CBC data. Current Interpretive Data was last revised on 2017. Monocyte pct 7.6 % [facility] ([place]) Comment: Interpretive Data Percent cell count reference [...] ORDERABLES Final R esult Performing Organization Address City/[facility]/ZIP Co de Phone Number WILLIAM [facility] ([place]) 1 [facility] [place] [address] * Thyroid Function [place] (10/25/2024 3:09 PM CDT) TSH 1.81 0.30 - 4.20 mcIUnit/mL Blood 10/25/2024 3:09 PM CDT 10/25/2024 3:15 PM CDT Juan Tobin MD LAB BLOOD ORDERABLES Final R [facility] Performing Organization Address City/[facility]/ZIP Co de Phone Number WILL[facility] ([place]) [address] [facility] [place] [employer] [place] [address] * (ABNORMAL) CBC with auto differential (10/25/2024 3:09 PM CDT) WBC 9.56 3.80 - 9.90 K/cumm Hgb 14.8 13.0 - 17.5 g/dL [facility] ([place]) Hct 45.5 38.9 - 50.3 % [facility] ([place]) Plt 298 150 - 400 K/cumm [facility] ([place]) MPV 9.3 9.1 - 12.3 fL [facility] ([place]) RBC 4.98 4.30 - 5.80 M/cumm [facility] ([place]) MCV 91.4 81.3 - 96.4 fL [facility] ([place]) MCH 29.7 27.1 - 33.3 pg [facility] ([place]) MCHC 32.5 32.3 - 35.7 g/dL [facility] ([place]) RDW CV 14.6 11.1 - 14.9 % [facility] ([place]) RDW SD 48.9(H) 35.7 - 48.1 fL [facility] ([place]) NRBC abs 0.00 0.00 - 0.01 K/cumm [facility] ([place]) Blood Venous blood specimen / Unknown 10/25/2024 3:09 PM CDT 10/25/2024 3:15 PM CDT Juan Tobin MD LAB BLOOD ORDERABLES Final R esult Performing Organization Address City/[facility] Co de Phone Number [facility] ([place]) 1 [facility] [employer] [place] [address] * Ethanol (10/25/2024 3:09 PM CDT) Ethanol <10 <=10 mg/dL Comment: Interpretive Data Legal limit of intoxication > or = 80 mg/dL Levels > or = 400 mg/dL are potentially TOXIC. Current interpretive data was last revised on 2018. Blood 10/25/2024 3:09 PM CDT 10/25/2024 3:15 PM CDT Juan Tobin MD LAB BLOOD ORDERABLES Final R esult Performing Organization Address City/[facility]/ZIP Co de Phone Number WILLIAM SILVA ([place]) 1 [facility] [employer] [place] [address] * Acetaminophen level (10/25/2024 3:09 PM CDT) [...] after ingestion Consult toxicology or poison control ([phone]) for unknown ingestion time. Current interpretive data was last revised 2023. Blood 10/25/2024 3:09 PM CDT 10/25/2024 3:15 PM CDT Juan Tobin MD LAB BLOOD ORDERABLES Final R esult Performing Organization Address [facility] Co de Phone Number [facility] ([place]) 1 [facility] [employer] [place] [address] * Salicylate level (10/25/2024 3:09 PM CDT) Salicylate <5.0 <=5.0 mg/dL Comment: Interpretive Data Toxic: 30 mg/dL or greater. Current interpretive data was last revised 2023. Blood 10/25/2024 3:09 PM CDT 10/25/2024 3:15 PM CDT Juan Tobin MD LAB BLOOD ORDERABLES Final R esult Performing Organization Address City/[facility] Co de Phone Number WILLIAM SILVA ([place]) 1 [facility] [place] [address] * Comprehensive metabolic panel (10/25/2024 3:09 PM [...] 3:09 PM CDT 10/25/2024 3:15 PM CDT us Juan Tobin MD LAB BLOOD ORDERABLES Final R esult [facility] ([place]) 1 [facility] Department of Laboratories [place], [place] [id number] * COVID-19 Coronavirus RNA Nasopharyngeal (10/22/2024 6:46 PM CDT) COVID-19 RNA Negative Negative Nasopharyngeal 10/22/2024 6: 46 PM CDT 10/22/2024 6:55 PM CDT Narrative WILLIAM SILVA ([place]) - 10/22/2024 7:39 PM CDT Is the patient experiencing any symptoms consistent with COVID (eg. Fever, cough, shortness of breath)?->No What is the reason for testing?->Screening prior to Behavioral health admission Interpretive data: Testing performed by [facility]. This test is performed using the Kogeto Xpert Xpress CoV-2 plus assay. This is a real-time RT-PCR test intended for the qualitative detection of nucleic acid from the SARS-CoV-2. This assay has been cleared by the [place] Food and Drug administration. The performance characteristics have been verified by [facility]. Results must be considered in the clinical context, and a negative result does not rule out infection. Interpretive data last revised 2024. Interpretive data: Testing performed by [facility]. This test is performed using the Kogeto Xpert Xpress CoV-2 plus assay. This is a real-time RT-PCR test intended for the qualitative detection of nucleic acid from the SARS-CoV-2. This assay has been cleared by the [place] Food and Drug administration. The performance characteristics have been verified by [facility]. Results must be considered in the clinical context, and a negative result does not rule out infection. Interpretive data last revised 2024. Eugene Ballard MD LAB MICROBIOLOGY - GENERAL ORD ERABLES Final Result WILLIAM SILVA ([place]) 1 [facility] [place] [address] * eGFR (10/22/2024 6:46 PM CDT) eGFR [...] BLOOD ORDERABLES Final Res ult [facility] ([place]) 1 [facility] [place] [address] * Differential, auto (10/22/2024 6:46 PM CDT) [...] revised on 2017. Monocyte pct 7.6 % WILLIAM SILVA ([place]) Comment: Interpretive Data Percent cell count reference ranges are not reported, since discordance with absolute values may lead to misinterpretation of CBC data. Current Interpretive Data was last revised on 2017. Eosinophil pct 2.1 % CERNE R RICARDO ([place]) Comment: Interpretive Data Percent cell count reference ranges are not reported, since discordance with absolute values may lead to misinterpretation of CBC data. Current Interpretive Data was last revised on 2017. Basophil pct 0.7 % WILLIAM SILVA ([place]) Comment: Interpretive Data Percent cell count reference ranges are not reported, since discordance with absolute values may lead to misinterpretation of CBC data. Current Interpretive Data was last revised on 2017. Blood 10/22/2024 6:46 PM CDT 10/22/2024 6:55 PM CDT Eugene Ballard MD LAB BLOOD ORDERABLES Final Res ult Performing Organization Address City/[facility]/ZIP Co de Phone Number [facility] ([place]) 1 [facility] [place] [address] * Thyroid Function [place] (10/22/2024 6:46 PM CDT) Pathologist [facility] TSH 1.24 0.30 - 4.20 mcIUnit/mL Blood 10/22/2024 6:46 PM CDT 10/22/2024 6:55 PM CDT Eugene Ballard MD LAB BLOOD ORDERABLES Final Res ult WILLIAM SILVA ([place]) 1 [facility] Department [place] [employer] [place] [address] * (ABNORMAL) Urinalysis reflex to microscopic and [...] tendency for uric acid stone formation. Source: [facility] Current Interpretive Data was last revised on [...] [facility] ([place]) Leukocyte esterase, ur 1+(A) Negative [facility] ([place]) UA reflex comment Reflex to microscopic UA will be performed. [facility] ([place]) Urine 10/22/2024 6:46 PM CDT 10/22/2024 6:55 PM CDT us Eugene Ballard MD LAB MICROBIOLOGY - GENERAL ORD ERABLES Final Result [facility] ([place]) 1 [facility] [place] [address] * (ABNORMAL) CBC with auto differential (10/22/2024 6:46 PM CDT) Pathologist [facility] WBC 7.46 3.80 - 9.90 K/cumm Hgb 14.5 13.0 - 17.5 g/dL [facility] ([place]) Hct 44.0 38.9 - 50.3 % [facility] ([place]) Plt 303 150 - 400 K/cumm [facility] ([place]) MPV 9.0(L) 9.1 - 12.3 fL [facility] ([place]) RBC 4.77 4.30 - 5.80 M/cumm [facility] ([place]) MCV 92.2 81.3 - 96.4 fL [facility] ([place]) MCH 30.4 27.1 - 33.3 pg [...] Final Res ult [facility] ([place]) 1 [facility] [place] [address] * (ABNORMAL) Drugs of Abuse Screen, Urine without Confirmation (10/22/2024 6:46 PM CDT) [facility] Amphetamine, ur Not Detected CutOff 500ng/mL [...] Not Detected CutOff 25 ng/mL WILLIAM SILVA ([place]) Comment: Interpretive Data - Phencyclidine: Samples containing [...] CDT 10/22/2024 6:55 PM CDT Narrative [facility] ([place]) - 10/22/2024 7:48 PM CDT Drug of Abuse screening is performed by immunoassay for medical purposes only. This is not to be used for Pain Management purposes. Eugene Ballard MD LAB URINE ORDERABLES Final Res ult WILLIAM SILVA ([place]) 1 [facility] [place] [address] * (ABNORMAL) Urinalysis, microscopic only (10/22/2024 6:46 PM CDT) WBC, ur 11-20(A) 0 - 5 /HPF RBC, ur 11-20(A) 0 - 2 /HPF WILLIAM SILVA ([place]) Epithelial cells, squamous, ur 1-5 0 - 5 /HPF WILLIAM SILVA ([place]) Mucous, ur Present(A) WILLIAM Geiger ([place]) Culture Reflex Comment Reflex to urine culture will be performed. WILLIAM SILVA ([place]) Urine 10/22/2024 6:46 PM CDT 10/22/2024 6:55 PM CDT Eugene Ballard MD LAB URINE ORDERABLES Final Res ult WILLIAM SILVA ([place]) 1 [facility] [place] [address] * Urine culture Urine (10/22/2024 6:46 PM CDT) Report Final Report: Less than 100,000 colonies/mL (clinically insignificant growth based on current clinical standards) Comment:Testing performed by : [facility], 1 [place] [place] [address] Organism (CLINICALLY INSIGNIFICANT GROWTH WILLIAM SILVA ([place]) Urine 10/22/2024 6:46 PM CDT 10/23/2024 12:18 AM CDT Narrative WILLIAM SILVA ([place]) - 10/24/2024 6:40 AM CDT Urine culture reflexed based upon urinalysis results. Testing performed by [facility] Microbiology Laboratory ([phone]) Eugene Ballard MD LAB MICROBIOLOGY - GENERAL ORD ERABLES Final Result Performing Organization Address [facility] Co de Phone Number WILLIAM SILVA ([place]) 1 [facility] [place] [address] * Ethanol (10/22/2024 6:46 PM CDT) Ethanol <10 <=10 mg/dL Comment: Interpretive Data Legal limit of intoxication > or = 80 mg/dL Levels > or = 400 mg/dL are potentially TOXIC. Current interpretive data was last revised on 2018. Blood 10/22/2024 6:46 PM CDT 10/22/2024 6:55 PM CDT us Eugene Ballard MD LAB BLOOD ORDERABLES Final Res ult WILLIAM SILVA ([place]) 1 [facility] [place] [address] * Acetaminophen level (10/22/2024 6:46 PM CDT) [...] after ingestion Consult toxicology or poison control ([phone]) for unknown ingestion time. Current interpretive data was last revised 2023. Blood 10/22/2024 6:46 PM CDT 10/22/2024 6:55 PM CDT [place] ANDR[facility] LAB BLOOD ORDERABLES Meche l Result [facility] [place]) 1 [facility] [place] [employer] [place] [address] * Salicylate level (10/22/2024 6:46 PM CDT) Salicylate <5.0 <=5.0 mg/dL Comment: Interpretive Data Toxic: 30 mg/dL or greater. Current interpretive data was last revised 2023. Blood 10/22/2024 6:46 PM CDT 10/22/2024 6:55 PM CDT [place] [facility] LAB BLOOD ORDERABLES Meche l Result [facility] ([place]) 1 [facility] [place] [address] * Comprehensive metabolic panel (10/22/2024 6:46 PM [...] Final Res ult [facility] ([place]) 1 [facility] [place] [address] * Hepatitis C antibody (01/11/2021 12:09 PM CDT) Hep C Ab Nonreactive Nonreactive WILLIAM SILVA ([place]) Comment: Interpretive Data Nonreactive: Antibodies to HCV [...] last revised on 2019. Testing performed by: [facility], [address] [place] [address]., [id number] Blood specimen (specimen) 01/11/2021 12:09 PM CDT 01/11/2021 3:53 PM CDT Kamron Garnett MD LAB MICROBIOLOGY - GENERAL ORDERABLES Final Result Performing Organization Address City/State/[facility] Co de Phone Number WILLIAM SILVA ([place]) 1 [facility] [place] [address] from Last 3 Months or Most Recently Relevant to Health Maintenance Insurance [employer] MEDIC[employer] PPO HU[employer]NA [employer] MEDICARE PPO HU[employer]NA MEDICARE HMO Care Teams Mechanical Service Specialist Relationship Specialty Start Date End Date Kamron Garnett MD [address] [facility] [address] [place] [address] PCP - General Family Medicine 07/24/23 Micaela Baum RN [address] [place] [address] [address] [place] [address] Electronics Utility Worker 10/23/24
--- OUTSIDE RECORDS SUMMARY | 2024-11-22 19:39 | XMS_ITS | Encounter Summary ---
Author Organization [facility] Healthcare Address [address] [place] [id number] Care Team Providers Care Slasher Operator Name Role Phone Kamron Garnett MD Primary Care Provider [phone] Becky Sands LCSW Unavailable Unavaila Micaela Braga RN Unavailable [phone] Encounter Details Date Type Department Care Team (Late st Contact Info) Description 10/23/2024 Results Follow-Up [facility] Emergency Department 1 [place] [address] Gabriel Maddox PA [address] [facility] [place] [address] Comprehensive metabolic panel, Thyroid Function [place], Ethanol, Additional followed-up results: 7 Social History Tobacco Use Types Packs/Day Years Used Date Smoking Tobacco: Some Days Cigarettes 0.5 69.4 Started: 07/02/1980 Cigars Smokeless Tobacco: Never Alcohol Use Standard Drinks/Week Comments Not Currently 0 (1 standard drink = 0.6 oz pur e alcohol) [facility] Utilities Answer Date Recorded In the past 12 months has [employer], gas, oil, or water [place] threatened to shut off services in your home? No 10/23/2024 Social Connection and Isolation Panel [NHANES] A nswer Date Recorded In a typical week, how many times do you talk on the phone with family, friends, or neighbors? Three times a week 10/23/2024 How often do you get togethe r with friends or relatives? Never 10/23/2024 How often do you attend chur or buddhist services? Never 10/23/2024 Do you belong to any clubs o r organizations such as restorationist groups, unions, fraternal or athletic groups, or [...] any time in the past 12 m [facility], were you homeless or [...] all recommended providers [facility] Care Management Micaela Roass RN Note: Problem: Potential for medical complications [...] medications as ordered. Coordinate with appropriate personnel (highway maintenance crew worker, physician, pharmacist, etc.) to help increase compliance with medication regimen. - Review with patient/caregiver the medication schedule in detail. Review when to call their physician for potential medication complications and ensure they verbalize understanding of instructions. documented as of this encounter Visit Diagnoses Not on filedocumented in this encounter Care Teams Slasher Operator Relationship Specialty Start Date End Date Kamron Garnett MD [address] [place] [address] PCP - General Family Medicine 07/24/23 Becky Sands LCSW Cooker Mechanic 10/23/24 11/11/24 Micaela Baum, RN [address] [place] [address] [address] [place] [address] [employer]rix Engineer 10/23/24 documented as of this encounter
[2024-11-22 20:10] LABS: Basophils Absolute Auto 0.1 K/mm3 (0.0-0.1); Basophils Percent Auto 0.7 % (0.2-1.2); Eosinophils Absolute Auto 0.3 K/mm3 (0-0.3); Eosinophils Percent Auto 2.4 % (0-4.4); Hematocrit 45.7 % (42.0-52.0); Hemoglobin 14.7 g/dL (14.0-18.0); Immature Granulocyte Absolute 0.06 K/mm3 (0.00-0.031); Immature Granulocyte Percent A 0.5 % (0-0.5); Lymphocytes Absolute Auto 1.93 K/mm3 (0.9-3.2); Lymphocytes Percent Auto 17.5 % (18.3-44.2); Mean Corpuscular HGB Conc 32.2 g/dl (32-36); Mean Corpuscular Hemoglobin 29.8 pg (26-34); Mean Corpuscular Volume 92.5 fl (80-100); Neutrophils Absolute Auto 7.7 K/mm3 (1.3-6.7); Neutrophils Percent Auto 69.9 % (45.5-73.1); Platelet Count Result 302 k/mm3 (150-375); Red Blood Count 4.94 M/mm3 (4.6-6.20)
[2024-11-22 20:21] LABS: Prothrombin Time 13.4 Seconds (11.1-14.7)
[2024-11-22 20:22] LABS: Alanine Aminotransferase 20 U/L (6-50); Albumin Level 3.4 g/dL (3.5-5.1); Alkaline Phosphatase 60 U/L (38-126); Anion Gap 2 mmol/L (4-12); Aspartate Amino Transferase 25 U/L (17-59); Bilirubin,Total 0.5 mg/dL (0.2-1.3); Blood Urea Nitrogen 15 mg/dL (9-20); Calcium 8.8 mg/dL (8.4-10.2); Carbon Dioxide 32 mmol/L (22-30); Chloride 104 mmol/L (98-107); Estimated CRCL calculation 85 ml/min; Estimated Glomerular Filt Rate > 60; Glucose 108 mg/dL (65-110); Lipase 81 U/L (23-300); Partial Thromboplastin Time 27.3 Seconds (22.3-36.8); Potassium 3.4 mmol/L (3.4-5.0); Sodium 138 mmol/L (137-145)
[2024-11-22 20:34] LABS: Troponin I < 0.012 ng/mL (0.000-0.034)
[2024-11-22 20:51] VITALS: BP 114/81; PULSE 101; PULSE 102; RESP 28; O2SAT 97; O2SAT 98
--- OUTSIDE RECORDS SUMMARY | 2024-11-22 20:51 | XMS_ITS | Encounter Summary ---
Author Organization [facility] Healthcare Address [address] [place] [address] Care Team Providers Care Actuarial Science Teacher Name Role Phone Kamron Garnett MD Primary Care Provider [phone] Becky Sands LCSW Unavailable Unavaila Micaela Braga RN Unavailable [phone] Encounter Details Date Type Department Care Team (Late st Contact Info) Description 10/23/2024 Results Follow-Up [facility] Emergency Department 1 [place] [address] Gabriel Maddox PA 1 [facility] [place] [address] Comprehensive metabolic panel, Thyroid Function [place], Ethanol, Additional followed-up results: 7 Social History Tobacco Use Types Packs/Day Years Used Date Smoking Tobacco: Some Days Cigarettes 0.5 69.4 Started: 07/02/1980 Cigars Smokeless Tobacco: Never Alcohol Use Standard Drinks/Week Comments Not Currently 0 (1 standard drink = 0.6 oz pur e alcohol) [facility] Utilities Answer Date Recorded In the past 12 months has [employer], gas, oil, or water [email or web address] threatened to shut off services in your home? No 10/23/2024 Social Connection and Isolation Panel [NHANES] A nswer Date Recorded In a typical week, how many times do you talk on the phone with family, friends, or neighbors? Three times a week 10/23/2024 How often do you get togethe r with friends or relatives? Never 10/23/2024 How often do you attend chur or restorationism services? Never 10/23/2024 Do you belong to any clubs o r organizations such as episcopal groups, unions, fraternal or athletic groups, or [...] staff should administer the PHQ-9) 6 05/01/2024 [facility] - Occupational Stress [...] any time in the past 12 m [facility], were you homeless or living [...] medications as ordered. Coordinate with appropriate personnel (machine lay out worker, physician, pharmacist, etc.) to help increase compliance with medication regimen. - Review with patient/caregiver the medication schedule in detail. Review when to call their physician for potential medication complications and ensure they verbalize understanding of instructions. documented as of this encounter Visit Diagnoses Not on filedocumented in this encounter Care Teams Actuarial Science Teacher Relationship Specialty Start Date End Date Kamron Garnett MD [address] [place] [address] PCP - General Family Medicine 07/24/23 Becky Sands LCSW Extension Service Specialist In Charge 10/23/24 11/11/24 Micaela Baum, RN [address] [place] [address] [address] [place] [address] Wood Veneer Taper 10/23/24 documented as of this encounter
--- OUTSIDE RECORDS SUMMARY | 2024-11-22 20:51 | XMS_ITS | Referral Summary ---
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 House Operator Name Role Phone Kamron Garnett MD Primary Care Provider [phone] Micaela Baum RN Unavailable [phone] Encounters Date Type Department Care Team Description 11/14/2024 BRITT IP Outreach [facility] Care Organization [address] [place] [id number] Natalie Bautista, [place] 11/11/2024 Results Follow-Up [facility] Primary Care at [address] [address] Kamron Garnett MD PSA screen, [place] level, Lipid panel, Additional followed-up results: 6 11/06/2024 2:23 PM CDT - 11/06/2024 11:59 PM CDT Hospital Encounter [address] [address] Screening for prostate cancer; Bipolar disorder, in partial remission, most recent episode mixed (HCC); Mixed hyperlipidemia; Hypertension, essential; RLS (restless legs syndrome); Body mass index (BMI) 33.0-33.9, adult Discharge Disposition: Discharge to home or self care 11/06/2024 2:15 PM CDT Lab [facility] Outpatient Lab at [address] [address] Hypertension, essential (Primary Dx) 11/06/2024 1:30 PM CDT Office Visit [facility] Primary Care at [address] [phone] Kamron Garnett MD Bipolar disorder, in partial remission, most recent episode mixed (HCC) (Primary Dx); Mild episode of recurrent major depressive disorder; Screening for prostate cancer; Mixed hyperlipidemia; RLS (restless legs syndrome); Hypertension, essential 11/04/2024 A[facility] Outreach [address] [address] Micaela Baum RN 10/28/2024 [facility] Outreach [address] [address] Micaela Baum RN 10/26/2024 7:54 AM CDT - 10/26/2024 11:59 PM CDT Hospital Encounter [facility] Emergency, Room R Discharge Disposition: Discharge to home or self care 10/25/2024 3:09 PM CDT - 10/26/2024 7:53 AM CDT Emergency [facility] Emergency Department [address] [place] [address] Juan Tobin MD Paranoia ([facility]) (Primary Dx); Urinary tract infection in male Discharge Disposition: Discharge to psych hospital or psych unit 10/25/2024 Nurse Triage [facility] Primary Care at [address] [phone] Kamron Garnett MD 10/23/2024 Results Follow-Up [facility] Emergency Department [address] [place] [address] Gabriel Maddox PA Comprehensive metabolic panel, Thyroid Function [place], Ethanol, Additional followed-up results: 7 10/23/2024 Telephone [facility] Primary Care at [address] [phone] Kamron Garnett MD Successful Phone Call 10/22/2024 9:51 PM CDT - 10/23/2024 1:09 AM CDT Emergency [facility] Emergency Department [address] [place], [place] [id number] Jonathan Hart MD Paranoia ([facility]) (Primary Dx) Discharge Disposition: Discharge to home or self care 10/22/2024 Nurse Triage [facility] Primary Care at [address] [address] Kamron Garnett MD 10/22/2024 6:27 PM CDT - 10/22/2024 7:12 PM CDT Emergency [facility] Emergency Department [address] [place] [address] Eugene Ballard MD Paranoid delusion (HCC) (Primary Dx) Discharge Disposition: Left Against Medical Advice 10/22/2024 Nurse Triage [facility] Primary Care at [address] [phone] Kamron Garnett MD 10/21/2024 ACO Clinical Pharmacist [facility] Organization [address] [place] [phone] So Wright RPh from Last 3 Months [...] 06/05/2023 Assessment & Plan (06/05/2023 11:21 AM GROUTER HELPER): STOP-BANG Score for Obstructive Sleep Apnea from [email or web address] on 06/05/2023 RESULT SUMMARY: 7 points --- [...] 06/05/2023 Assessment & Plan (06/05/2023 11:39 AM GROUTER HELPER): Discussed quiting, patient previously able to quit for period of 20 yrs Total PY 20 -- 20 yrs x 1 PPD Currently 1 PPD since 2019 Smokes inside home, before sleep Pre-contemplation stage - understands risks At high risk for pneumonia 06/05/2023 Assessment & Plan (06/05/2023 11:47 AM GROUTER HELPER): Smoking status, HTN, obesity - PCV 20 administer to reduce risk Hlrlgvjicr-emvyshwag-ufsathc (DPT) vaccination d eclined 06/05/2023 Assessment & Plan (06/05/2023 11:48 AM GROUTER HELPER): Opted for one vaccine at appt 06/05/23 pcv 20 --- declined Tdap Abnormal EKG 05/12/2023 Assessment & Plan (06/05/2023 11:31 AM GROUTER HELPER): Abnormal changes on EKG 05/2023 Follow up NM spect 05/30/23 - 1. Normal myocardial perfusion. 2. No scintigraphic evidence of myocardial ischemia. 3. Normal left ventricular ejection fraction poststress. 4. Normal left ventricular wall motion. Lexiscan Stress test - CONCLUSIONS: 1. Negative Lexiscan pharmacologic stress test for chest pain or EKG changes. Discussed results today Assessment & Plan (05/12/2023 11:29 AM GROUTER HELPER): EKG was abnormal as well on repeat, we will need to get stress test as soon as feasible If symptoms recur, ER Nitroglycerin PRN for chest pain Recommended starting baby aspirin daily Replacing fenofibrate with Crestor Angina pectoris, unspecified 05/08/2023 Assessment & Plan (06/05/2023 11:36 AM GROUTER HELPER): CP with exertion, SOB with exertion, pitting edema of LE bilaterally - pro-BNP - recent stress and lexiscan revealed no abnormalities Cough syncope 05/17/2021 Chronic renal insufficiency, stage II (mild) Assessment & Plan (01/19/2021 11:29 AM CDT): stable Hypertension, essential 12/05/2020 Assessment & Plan (07/26/2023 1:07 PM GROUTER HELPER): Stress test clear from Nov Will watch however, any chest pain or jaw pain with chest pain/pressure, go to ER BP is mildly elevated; given the BP fluctuations, I will increase amlodipine to 7.5 mg daily Continue losartan, hydrochlorothiazide Assessment & Plan (06/05/2023 11:36 AM GROUTER HELPER): BP well controlled today 104/58 Continue current [...] 12/05/2020 Assessment & Plan (06/05/2023 11:37 AM GROUTER HELPER): No SI, SA, HI Prefers being alone [...] then dx with Bipolar and placed on [place]. He states that he was not doing well on the [place] so his provider took him off the Adderall and [place] and he felt better. 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 Never 10/23/2024 Do you belong to any clubs o r organizations such as orthodoxy groups, unions, fraternal or athletic groups, or [...] staff should administer the PHQ-9) 6 05/01/2024 [facility] [place] of Occupat ional Health - Occupational Stress [...] were you homeless or living in a halfway (including now)? No 10/23/2024 Personal Safety Answer [...] medications as ordered. Coordinate with appropriate personnel (child welfare social worker, physician, pharmacist, etc.) to help increase [...] * eGFR (11/06/2024 2:23 PM CDT) Pathologist [facility] eGFR >90 >=60 mL/min/1. 73 m2 Comment: [...] MD LAB BLOOD ORDERABLES Final Result WILLIAM [address] Department [place] [address] * (ABNORMAL) Differential, auto (11/06/2024 2:23 PM CDT) Pathologist [facility] Neutrophil abs 6.17 1.50 - 6.50 K/cumm Imm gran abs 0.06 0.00 - 0.10 K/cumm [facility] Lymphocyte abs 2.20 0.80 - 3.30 K/cumm [facility] Monocyte abs 1.01(H) 0.20 - 0.80 K/cumm [facility] Eosinophil abs 0.32 0.00 - 0.50 K/cumm [facility] Basophil abs 0.06 0.00 - 0.10 K/cumm [facility] Neutrophil pct 62.8 % [facility] Comment: Interpretive Data Percent cell count reference ranges are not reported, since discordance with absolute values may lead to misinterpretation of CBC data. Current Interpretive Data was last revised on 2017. Imm gran pct 0.6 % [facility] Comment: Interpretive Data Percent cell count reference [...] revised on 2017. Monocyte pct 10.3 % [facility] Comment: Interpretive Data Percent cell count reference [...] revised on 2017. Basophil pct 0.6 % [facility] Comment: Interpretive Data Percent cell count reference ranges are not reported, since discordance with absolute values may lead to misinterpretation of CBC data. Current Interpretive Data was last revised on 2017. Blood 11/06/2024 2:23 PM CDT 11/06/2024 8:36 PM CDT Kamron Garnett MD LAB BLOOD ORDERABLES Final Result Performing Organization Address City/State/[facility] Co de Phone Number [place] [address] [address] [place] [address] * PSA screen (11/06/2024 2:23 PM CDT) [...] BLOOD ORDERABLES Final Result Performing Organization Address City/[facility] Co de Phone Number WILLIAM SHI [phone] [place] [address] * (ABNORMAL) CBC with auto differential (11/06/2024 2:23 PM CDT) WBC 9.82 3.80 - 9.90 K/cumm Hgb 14.4 13.0 - 17.5 g/dL [facility] Hct 45.4 38.9 - 50.3 % [facility] Plt 290 150 - 400 K/cumm [facility] MPV 10.2 9.1 - 12.3 fL [facility] RBC 4.84 4.30 - 5.80 M/cumm [facility] MCV 93.8 81.3 - 96.4 fL [facility] MCH 29.8 27.1 - 33.3 pg [facility] MCHC 31.7(L) 32.3 - 35.7 g/dL [facility] RDW CV 14.6 11.1 - 14.9 % [facility] RDW SD 50.9(H) 35.7 - 48.1 fL [facility] NRBC abs 0.00 0.00 - 0.01 K/cumm [facility] Blood 11/06/2024 2:23 PM CDT 11/06/2024 8:36 PM CDT Kamron Garnett MD LAB BLOOD ORDERABLES Final Result Performing Organization Address City/[facility] Co de Phone Number WILLIAM SHI [address] [employer] [place], [place] [id number] * (ABNORMAL) Vitamin D 25 hydroxy (11/06/2024 2:23 PM CDT) Vitamin D 25-OH 10(L) 30 - 80 ng/mL Blood 11/06/2024 2:23 PM CDT 11/06/2024 8:35 PM CDT Kamron Garnett MD LAB BLOOD ORDERABLES Final Result Performing Organization Address [facility] Co de Phone Number WILLIAM SHI [phone] [place] [address] * TSH (11/06/2024 2:23 PM CDT) Thyroid Stimulating Hormone 2.04 0.30 - 4.20 mcIUnit/mL Blood 11/06/2024 2:23 PM CDT 11/06/2024 8:35 PM CDT Kamron Garnett MD LAB BLOOD ORDERABLES Final Result Performing Organization Address [facility] de Phone Number [place] SHI [address] [employer] [place] [address] * (ABNORMAL) [place] level (11/06/2024 2:23 PM CDT) [place] 0.1(L) 0.6 - 1.2 mmol/L Comment:Testing performed by : [facility], [address] [place] [address], [place]., [address] Blood 11/06/2024 2:23 PM CDT 11/07/2024 9:52 AM CDT Kamron Garnett MD LAB BLOOD ORDERABLES Final Result Performing Organization Address [facility] Co de Phone Number WILLIAM SHI [address] [address] [place] [address] * (ABNORMAL) Lipid panel (11/06/2024 [...] Final Result Performing Organization Address City/State/ZIP Co nv Phone Number [facility] [address] [address] [place] [address] * (ABNORMAL) Comprehensive metabolic panel (11/06/2024 2:23 [...] CH AST 24 10 - 50 Units/L [facility] Blood 11/06/2024 2:23 PM CDT 11/06/2024 8:35 PM CDT Kamron Garnett MD LAB BLOOD ORDERABLES Final Result WILLIAM [address] [address] Department [place] [address] * Drugs of Abuse Screen, Urine without Confirmation (10/25/2024 5:36 PM CDT) Pathologist [facility] Amphetamine, ur Not Detected CutOff 500ng/mL Comment: Interpretive Data - Amphetamines: Samples containing greater than 500 ng/mL d-methamphetamine or other cross-reacting amphetamine compounds are reported as positive. Amphetamine immunoassays are subject to significant false positive rates due to cross-reactivity of non-amphetamine drugs. Confirmatory testing required for definitive results. Current Interpretive Data was last reviewed 2023. Barbiturates, ur Not Detected CutOff 200ng/mL [facility] ([place]) Comment: Interpretive Data - Barbiturates: [...] ur Not Detected CutOff 100ng/mL WILL[facility] ([place]) Comment: Interpretive Data - Oxycodone: Samples containing greater than 100 ng/mL oxycodone or other cross-reacting compounds are reported as positive. False positive and false negative results are possible. Confirmatory testing required for definitive results. Current Interpretive Data was last reviewed 2023. Phencyclidine, ur Not Detected CutOff 25 ng/mL [facility] ([place]) Comment: Interpretive Data - Phencyclidine: Samples containing greater than 25 ng/mL phencyclidine or other cross-reacting compounds are reported as positive. False positive and false negative results are possible. Confirmatory testing required for definitive results. Current Interpretive Data was last reviewed 2023. Urine Creatinine 45 mg/dL [facility] ([place]) Comment: Interpretive Data Urine Creatinine: < 10 mg/dL is extremely dilute = or > 10 but < 20 mg/dL is dilute = or > 20 mg/dL is normal Current Interpretive Data was last revised on 2017. Urine 10/25/2024 5:36 PM CDT 10/25/2024 5:40 PM CDT [place] ANDRADE LAB URINE ORDERABLES Meche kaye Result WLILIAM [facility] ([place]) 1 [facility] Department [place] [address] * (ABNORMAL) Urinalysis reflex to microscopic and culture Urine (10/25/2024 3:20 PM CDT) Color, ur Yellow Yellow Clarity, ur Clear Clear WILLIAM [facility] ([place]) Specific gravity, ur 1.025 1.003 - 1.030 [facility] ([place]) pH, urine 6.0 [facility] ([place]) Comment: Interpretive Data U rine pH is affected by diet, medications, systemic acid-base disturbances, and renal tubular function. pH may affect urinary stone formation. For example, urine pH below 6.0 may help reduce the tendency for calcium phosphate stones and pH greater than 6.0 may reduce the tendency for uric acid stone formation. Source: [facility] Current Interpretive Data was last revised [...] RDERABLES Final Result [facility] ([place]) 1 [facility] Department [place] [address] * (ABNORMAL) Drugs of Abuse Screen, Urine without Confirmation (10/25/2024 3:20 PM CDT) Pathologist [facility] Amphetamine, ur Not Detected CutOff 500ng/mL Comment: [...] Not Detected CutOff 25 ng/mL WILL[facility] ([place]) Comment: Interpretive Data - Phencyclidine: Samples containing [...] CDT 10/25/2024 3:24 PM CDT Narrative WILLIAM [facility] ([place]) - 10/25/2024 4:22 PM CDT Drug of Abuse screening is performed by immunoassay for medical purposes only. This is not to be used for Pain Management purposes. Juan Tobin MD LAB URINE ORDERABLES Final R esult WILLIAM [facility] ([place]) 1 [facility] Department of Laboratories [place], [place] [id number] * (ABNORMAL) Urinalysis, microscopic only (10/25/2024 3:20 PM CDT) WBC, ur 11-20(A) 0 - 5 /HPF RBC, ur 3-5(A) 0 - 2 /HPF WILLIAM [facility] ([place]) Epithelial cells, squamous, ur 1-5 0 - 5 /HPF WILLIAM [facility] ([place]) Mucous, ur Present(A) [facility] ([place]) Sperm, ur Present(A) [facility] ([place]) Culture Reflex Comment Reflex to urine culture will be performed. WILLIAM [facility] ([place]) Urine 10/25/2024 3:20 PM CDT 10/25/2024 3:23 PM CDT Juan Tobin MD LAB URINE ORDERABLES Final R esult Performing Organization Address [facility]/ZIP Co de Phone Number WILLIAM [facility] ([place]) [address] [place] [address] [place] [address] * Urine culture Urine (10/25/2024 3:20 PM CDT) Report Final Report: Less than 100,000 colonies/mL (clinically insignificant growth based on current clinical standards) Comment:Testing performed by : [facility], [address] [facility], [place]., [address] Organism (CLINICALLY INSIGNIFICANT GROWTH [facility] ([place]) Urine 10/25/2024 3:20 PM CDT 10/25/2024 6:11 PM CDT Narrative WILLIAM [facility] ([place]) - 10/26/2024 6:43 PM CDT Urine culture reflexed based upon urinalysis results. Testing performed by [facility] Microbiology [facility] ([phone]) Nito Null MD LAB MICROBIOLOGY - GENERAL O RDERABLES Final Result Performing Organization Address [facility] Co de Phone Number [facility] ([place] [address] [place] [address] * COVID-19 Coronavirus RNA Nasopharyngeal (10/25/2024 3:09 PM CDT) COVID-19 RNA Negative Negative Nasopharyngeal 10/25/2024 3: 09 PM CDT 10/25/2024 3:15 PM CDT Narrative WILLIAM [facility] ([place]) - 10/25/2024 3:47 PM CDT Is the patient experiencing any symptoms consistent with COVID (eg. Fever, cough, shortness of breath)?->No What is the reason for testing?->Screening prior to Behavioral health admission Interpretive data: Testing performed by [facility]. This test is performed using the Qubole Xpert Xpress CoV-2 plus assay. This is a real-time RT-PCR test intended for the qualitative detection of nucleic acid from the SARS-CoV-2. This assay has been cleared by the [place] Food and Drug administration. The performance characteristics have been verified by [facility]. Results must be considered in the clinical context, and a negative result does not rule out infection. Interpretive data last revised 2024. Interpretive data: Testing performed by [facility]. This test is performed using the Qubole Xpert Xpress CoV-2 plus assay. This is a real-time RT-PCR test intended for the qualitative detection of nucleic acid from the SARS-CoV-2. This assay has been cleared by the [place] Food and Drug administration. The performance characteristics have been verified by [facility]. Results must be considered in the clinical context, and a negative result does not rule out infection. Interpretive data last revised 2024. Juan Tobin MD LAB MICROBIOLOGY - GENERAL O RDERABLES Final Result [facility] [place]) 1 [facility] Department of Laboratories [place], [place] [id number] * eGFR (10/25/2024 3:09 PM CDT) eGFR [...] LAB BLOOD ORDERABLES Final R esult WILLIAM [facility] ([place]) 1 [facility] Department [place] [address] * (ABNORMAL) Differential, auto (10/25/2024 3:09 PM CDT) Neutrophil abs 6.87(H) 1.50 - 6.50 K/cumm Imm gran abs 0.04 0.00 - 0.10 K/cumm [facility] ([place]) Lymphocyte abs 1.72 0.80 - 3.30 K/cumm [facility] ([place]) Monocyte abs 0.73 0.20 - 0.80 K/cumm [facility] ([place]) Eosinophil abs 0.14 0.00 - 0.50 K/cumm [facility] ([place]) Basophil abs 0.06 0.00 - 0.10 K/cumm [facility] ([place]) Neutrophil pct 71.9 % [facility] ([place]) Comment: Interpretive Data Percent cell count reference ranges are not reported, since discordance with absolute values may lead to misinterpretation of CBC data. Current Interpretive Data was last revised on 2017. Imm gran pct 0.4 % [facility] ([place]) Comment: Interpretive Data Percent cell count reference ranges are not reported, since discordance with absolute values may lead to misinterpretation of CBC data. Current Interpretive Data was last revised on 2017. Lymphocyte pct 18.0 % [facility] ([place]) Comment: Interpretive Data Percent cell count reference ranges are not reported, since discordance with absolute values may lead to misinterpretation of CBC data. Current Interpretive Data was last revised on 2017. Monocyte pct 7.6 % [facility] ([place]) Comment: Interpretive Data Percent cell count reference [...] ORDERABLES Final R esult Performing Organization Address City/[facility]/ZIP Co de Phone Number WILLIAM [facility] ([place]) 1 [facility] [employer] [place] [address] * Thyroid Function [place] (10/25/2024 3:09 PM CDT) TSH 1.81 0.30 - 4.20 mcIUnit/mL Blood 10/25/2024 3:09 PM CDT 10/25/2024 3:15 PM CDT Juan Tobin MD LAB BLOOD ORDERABLES [facility] Performing Organization Address City/[facility]/ZIP Co de Phone Number WILLIAM [facility] ([place]) 1 [facility] [employer] [place] [address] * (ABNORMAL) CBC with auto differential (10/25/2024 [...] NRBC abs 0.00 0.00 - 0.01 K/cumm [facility] ([place]) Blood Venous blood specimen / Unknown 10/25/2024 3:09 PM CDT 10/25/2024 3:15 PM CDT Juan Tobin MD LAB BLOOD ORDERABLES Final R esult Performing Organization Address City/[facility] Co de Phone Number WILLIAM [facility] ([place]) 1 [facility] [place] [address] * Ethanol (10/25/2024 3:09 PM CDT) Ethanol <10 <=10 mg/dL Comment: Interpretive Data Legal limit of intoxication > or = 80 mg/dL Levels > or = 400 mg/dL are potentially TOXIC. Current interpretive data was last revised on 2018. Blood 10/25/2024 3:09 PM CDT 10/25/2024 3:15 PM CDT Juan Tobin MD LAB BLOOD ORDERABLES Final R esult Performing Organization Address City/[facility]/ZIP Co de Phone Number WILLIAM [facility] ([place]) 1 [facility] [place] [address] * Acetaminophen level (10/25/2024 3:09 PM CDT) [...] after ingestion Consult toxicology or poison control ([phone]) for unknown ingestion time. Current interpretive data was last revised 2023. Blood 10/25/2024 3:09 PM CDT 10/25/2024 3:15 PM CDT Juan Tobin MD LAB BLOOD ORDERABLES Final R esult Performing Organization Address [facility] Co de Phone Number WILLIAM [facility] ([place]) 1 [facility] [place] [address] * Salicylate level (10/25/2024 3:09 PM CDT) Salicylate <5.0 <=5.0 mg/dL Comment: Interpretive Data Toxic: 30 mg/dL or greater. Current interpretive data was last revised 2023. Blood 10/25/2024 3:09 PM CDT 10/25/2024 3:15 PM CDT Juan Tobin MD LAB BLOOD ORDERABLES Final R esult Performing Organization Address City/[facility] Co de Phone Number WILLIAM [facility] ([place]) 1 [facility] [employer] [place] [address] * Comprehensive metabolic panel (10/25/2024 3:09 PM [...] MD LAB BLOOD ORDERABLES Final R esult [facility] ([place]) 1 [facility] Department of Laboratories [place], [place] [id number] * COVID-19 Coronavirus RNA Nasopharyngeal (10/22/2024 6:46 PM CDT) COVID-19 RNA Negative Negative Nasopharyngeal 10/22/2024 6: 46 PM CDT 10/22/2024 6:55 PM CDT Narrative [facility]IAM SILVA ([place]) - 10/22/2024 7:39 PM CDT Is the patient experiencing any symptoms consistent with COVID (eg. Fever, cough, shortness of breath)?->No What is the reason for testing?->Screening prior to Behavioral health admission Interpretive data: Testing performed by [facility]. This test is performed using the Qubole Xpert Xpress CoV-2 plus assay. This is a real-time RT-PCR test intended for the qualitative detection of nucleic acid from the SARS-CoV-2. This assay has been cleared by the [place] Food and Drug administration. The performance characteristics have been verified by [facility]. Results must be considered in the clinical context, and a negative result does not rule out infection. Interpretive data last revised 2024. Interpretive data: Testing performed by [facility]. This test is performed using the Qubole Xpert Xpress CoV-2 plus assay. This is a real-time RT-PCR test intended for the qualitative detection of nucleic acid from the SARS-CoV-2. This assay has been cleared by the [place] Food and Drug administration. The performance characteristics have been verified by [facility]. Results must be considered in the clinical context, and a negative result does not rule out infection. Interpretive data last revised 2024. Eugene Ballard MD LAB MICROBIOLOGY - GENERAL ORD ERABLES Final Result WILLIAM SILVA ([place]) 1 [facility] Department [place] [address] * eGFR (10/22/2024 6:46 PM CDT) eGFR [...] BLOOD ORDERABLES Final Res ult [facility] ([place]) 1 [facility] Department [place] [address] * Differential, auto (10/22/2024 6:46 PM CDT) [...] ORDERABLES Final Res ult Performing Organization Address City/[facility]/ZIP Co de Phone Number WILLIAM [facility] ([place]) 1 [facility] [place] [address] * Thyroid Function [place] (10/22/2024 6:46 PM CDT) Pathologist [facility] TSH 1.24 0.30 - 4.20 mcIUnit/mL Blood 10/22/2024 6:46 PM CDT 10/22/2024 6:55 PM CDT Eugene Ballard MD LAB BLOOD ORDERABLES Final Res ult WILLIAM SILVA ([place]) 1 [facility] Department [place] [address] * (ABNORMAL) Urinalysis reflex to microscopic and [...] tendency for uric acid stone formation. Source: [facility] Current Interpretive Data was last revised [...] Reflex to microscopic UA will be performed. [facility] ([place]) Urine 10/22/2024 6:46 PM CDT 10/22/2024 6:55 PM CDT us Eugene Ballard MD LAB MICROBIOLOGY - GENERAL ORD ERABLES Final Result [facility] ([place]) 1 [facility] Department [place] [address] * (ABNORMAL) CBC with auto differential (10/22/2024 6:46 PM CDT) Pathologist [facility] WBC 7.46 3.80 - 9.90 K/cumm Hgb [...] Final Res ult [facility] ([place]) 1 [facility] Department [place] [address] * (ABNORMAL) Drugs of Abuse Screen, Urine without Confirmation (10/22/2024 6:46 PM CDT) [facility] Amphetamine, ur Not Detected CutOff 500ng/mL Comment: [...] Not Detected CutOff 25 ng/mL WILLIAM SIL[facility] ([place]) Comment: Interpretive Data - Phencyclidine: Samples containing [...] CDT 10/22/2024 6:55 PM CDT Narrative WILLIAM [facility] ([place]) - 10/22/2024 7:48 PM CDT Drug of Abuse screening is performed by immunoassay for medical purposes only. This is not to be used for Pain Management purposes. Eugene Ballard MD LAB URINE ORDERABLES Final Res ult WILLIAM SILVA ([place]) 1 [facility] Department [place] [address] * (ABNORMAL) Urinalysis, microscopic only (10/22/2024 6:46 PM CDT) WBC, ur 11-20(A) 0 - 5 /HPF RBC, ur 11-20(A) 0 - 2 /HPF [facility] S[facility] ([place]) Epithelial cells, squamous, ur 1-5 0 - 5 /HPF [facility] S[facility] ([place]) Mucous, ur Present(A) WILLIAM [facility] ([place]) Culture Reflex Comment Reflex to urine culture will be performed. [facility] ([place]) Urine 10/22/2024 6:46 PM CDT 10/22/2024 6:55 PM CDT Eugene Ballard MD LAB URINE ORDERABLES Final Res ult [facility]IAM SILVA ([place]) 1 [facility] [place] [address] * Urine culture Urine (10/22/2024 6:46 PM CDT) Report Final Report: Less than 100,000 colonies/mL (clinically insignificant growth based on current clinical standards) Comment:Testing performed by : [facility], [address] [facility] [place]., [address] Organism (CLINICALLY INSIGNIFICANT GROWTH [facility]IAM SILVA ([place]) Urine 10/22/2024 6:46 PM CDT 10/23/2024 12:18 AM CDT Narrative [facility]IAM S[facility] ([place]) - 10/24/2024 6:40 AM CDT Urine culture reflexed based upon urinalysis results. Testing performed by [facility] ([phone]) Eugene Ballard MD LAB MICROBIOLOGY - GENERAL ORD ERABLES Final Result Performing Organization Address [facility] Co de Phone Number WILLIAM SILVA ([place]) 1 [facility] [employer] [place] [address] * Ethanol (10/22/2024 6:46 PM CDT) Ethanol <10 <=10 mg/dL Comment: Interpretive Data Legal limit of intoxication > or = 80 mg/dL Levels > or = 400 mg/dL are potentially TOXIC. Current interpretive data was last revised on 2018. Blood 10/22/2024 6:46 PM CDT 10/22/2024 6:55 PM CDT us Eugene Ballard MD LAB BLOOD ORDERABLES Final Res ult WILLIAM SILVA ([place]) 1 [facility] [employer] [place] [address] * Acetaminophen level (10/22/2024 6:46 PM CDT) [...] after ingestion Consult toxicology or poison control ([phone]) for unknown ingestion time. Current interpretive data was last revised 2023. Blood 10/22/2024 6:46 PM CDT 10/22/2024 6:55 PM CDT [place] [facility] LAB BLOOD ORDERABLES Meche l Result [facility] [place]) 1 [facility] [place] [address] * Salicylate level (10/22/2024 6:46 PM CDT) Salicylate <5.0 <=5.0 mg/dL Comment: Interpretive Data Toxic: 30 mg/dL or greater. Current interpretive data was last revised 2023. Blood 10/22/2024 6:46 PM CDT 10/22/2024 6:55 PM CDT [place] [facility] LAB BLOOD ORDERABLES Meche l Result [facility] ([place]) 1 [facility] [employer] [place] [address] * Comprehensive metabolic panel (10/22/2024 6:46 PM [...] Final Res ult [facility] ([place]) 1 [facility] Department [place] [address] * Hepatitis C antibody (01/11/2021 12:09 PM [...] last revised on 2019. 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
--- OUTSIDE RECORDS SUMMARY | 2024-11-22 20:51 | XMS_ITS | Clinical Summary ---
Author Organization [facility] Address [address] [place] [id number] Care Team Providers Care Housing Relocation Name Role Phone Kamron Garnett MD Primary Care Provider [phone] Micaela Baum RN Unavailable [phone] Allergies No known active allergies Medications [...] 06/05/2023 Assessment & Plan (06/05/2023 11:21 AM DEATH CLAIM CLERK): STOP-BANG Score for Obstructive Sleep Apnea from [email or web address] on 06/05/2023 RESULT SUMMARY: 7 points --- [...] 06/05/2023 Assessment & Plan (06/05/2023 11:39 AM DEATH CLAIM CLERK): Discussed quiting, patient previously able to quit for period of 20 yrs Total PY 20 -- 20 yrs x 1 PPD Currently 1 PPD since 2019 Smokes inside home, before sleep Pre-contemplation stage - understands risks At high risk for pneumonia 06/05/2023 Assessment & Plan (06/05/2023 11:47 AM DEATH CLAIM CLERK): Smoking status, HTN, obesity - PCV 20 administer to reduce risk Kgoznlgtev-tonojupli-dkztvee (DPT) vaccination d eclined 06/05/2023 Assessment & Plan (06/05/2023 11:48 AM DEATH CLAIM CLERK): Opted for one vaccine at appt 06/05/23 pcv 20 --- declined Tdap Abnormal EKG 05/12/2023 Assessment & Plan (06/05/2023 11:31 AM DEATH CLAIM CLERK): Abnormal changes on EKG 05/2023 Follow up NM spect 05/30/23 - 1. Normal myocardial perfusion. 2. No scintigraphic evidence of myocardial ischemia. 3. Normal left ventricular ejection fraction poststress. 4. Normal left ventricular wall motion. Lexiscan Stress test - CONCLUSIONS: 1. Negative Lexiscan pharmacologic stress test for chest pain or EKG changes. Discussed results today Assessment & Plan (05/12/2023 11:29 AM DEATH CLAIM CLERK): EKG was abnormal as well on repeat, we will need to get stress test as soon as feasible If symptoms recur, ER Nitroglycerin PRN for chest pain Recommended starting baby aspirin daily Replacing fenofibrate with Crestor Angina pectoris, unspecified 05/08/2023 Assessment & Plan (06/05/2023 11:36 AM DEATH CLAIM CLERK): CP with exertion, SOB with exertion, pitting edema of LE bilaterally - pro-BNP - recent stress and lexiscan revealed no abnormalities Cough syncope 05/17/2021 Chronic renal insufficiency, stage II (mild) Assessment & Plan (01/19/2021 11:29 AM CDT): stable Hypertension, essential 12/05/2020 Assessment & Plan (07/26/2023 1:07 PM DEATH CLAIM CLERK): Stress test clear from Nov Will watch however, any chest pain or jaw pain with chest pain/pressure, go to ER BP is mildly elevated; given the BP fluctuations, I will increase amlodipine to 7.5 mg daily Continue losartan, hydrochlorothiazide Assessment & Plan (06/05/2023 11:36 AM DEATH CLAIM CLERK): BP well controlled today 104/58 Continue current [...] 12/05/2020 Assessment & Plan (06/05/2023 11:37 AM DEATH CLAIM CLERK): No SI, SA, HI Prefers being alone [...] then dx with Bipolar and placed on [place]. He states that he was not doing well on the [place] so his provider took him off the Adderall and [place] and he felt better. It was later [...] 05/01/20 Assessment & Plan (06/05/2023 11:40 AM DEATH CLAIM CLERK): Multiple caffeine sodas (pepsi) daily including before sleep Discussed reducing caffeine intake and relation to palpitations, anxiety\, weight gain and difficulty sleeping Squamous cell carcinoma of forehead 02/02/2021 02/25/2021 Overview (02/02/2021): Added automatically from request for surgery [id number] SCC (squamous cell carcinoma) 01/21/2021 02/25/2021 Encounters Date Type Department Care Team Description 11/14/2024 BRITT IP Outreach [facility] Accountable Care Organization [address] [place] [id number] aNtalie Bautista, NOAH 11/11/2024 Results Follow-Up [facility] Medical Group Primary Care at [address] [phone] Kamron Garnett MD PSA screen, [place] level, Lipid panel, Additional followed-up results: 6 11/06/2024 2:23 PM CDT - 11/06/2024 11:59 PM CDT Hospital Encounter [address] [address] Screening for prostate cancer; Bipolar disorder, in partial remission, most recent episode mixed (HCC); Mixed hyperlipidemia; Hypertension, essential; RLS (restless legs syndrome); Body mass index (BMI) 33.0-33.9, adult Discharge Disposition: Discharge to home or self care 11/06/2024 2:15 PM CDT Lab [facility] Medical [facility] Outpatient Lab at [address] [phone] Hypertension, essential (Primary Dx) 11/06/2024 1:30 PM CDT Office Visit [facility] Primary Care at [address] [phone] Kamron Garnett MD Bipolar disorder, in partial remission, most recent episode mixed (HCC) (Primary Dx); Mild episode of recurrent major depressive disorder; Screening for prostate cancer; Mixed hyperlipidemia; RLS (restless legs syndrome); Hypertension, essential 11/04/2024 ACO Outreach [facility] Care [address] [address] Micaela Baum RN 10/28/2024 ACO Outreach [address] [address] Micaela Baum RN 10/26/2024 7:54 AM CDT - 10/26/2024 11:59 PM CDT Hospital Encounter [facility] Emergency, Room R Discharge Disposition: Discharge to home or self care 10/25/2024 3:09 PM CDT - 10/26/2024 7:53 AM CDT Emergency [facility] Emergency Department [address] [place] [address] Juan Tobin MD Paranoia (HCC) (Primary Dx); Urinary tract infection in male Discharge Disposition: Discharge to psych hospital or psych unit 10/25/2024 Nurse Triage [facility] Primary Care at [address] [phone] Kamron Garnett MD 10/23/2024 Results Follow-Up [facility] Emergency Department [address] [place] [address] Gabriel Maddox PA Comprehensive metabolic panel, Thyroid Function [place], Ethanol, Additional followed-up results: 7 10/23/2024 Telephone [facility] Primary Care at [address] [phone] Kamron Garnett MD Successful Phone Call 10/22/2024 9:51 PM CDT - 10/23/2024 1:09 AM CDT Emergency [facility] Emergency Department [address] [place] [address] Jonathan Hart MD Paranoia (HCC) (Primary Dx) Discharge Disposition: Discharge to home or self care 10/22/2024 6:27 PM CDT - 10/22/2024 7:12 PM T Emergency [facility] Emergency Department [address] [place] [address] Eugene Ballard MD Paranoid delusion (HCC) (Primary Dx) Discharge Disposition: Left Against Medical Advice 10/22/2024 Nurse Triage [facility] Medical [facility] Primary Care at [address] [phone] Kamron Garnett MD 10/22/2024 Nurse Triage [facility] Primary Care at [address] [phone] Kamron Garnett MD 10/21/2024 ACO Clinical Pharmacist [facility] Care Organization [address] [place] [id number] [facility] from Last 3 Months Immunizations Immunization Administration [...] 02/02/2021 Added automatically from request for surgery [id number] OCD (obsessive compulsive disorder) Bipolar 1 disorder [...] drink = 0.6 oz pur e alcohol) [facility] Utilities Answer Date Recorded In the past 12 months has [employer], gas, oil, or water [employer] threatened to shut off services in your [...] often do you attend chur ch or anglican services? Never 10/23/2024 Do you belong to any clubs o r organizations such as anabaptism groups, unions, fraternal or athletic groups, or [...] were you homeless or living in a fpc (including now)? No 10/23/2024 Personal Safety Answer [...] medications as ordered. Coordinate with appropriate personnel (adz worker, physician, pharmacist, etc.) to help increase [...] Garnett MD LAB BLOOD ORDERABLES Final Result [facility] [address] [address] [place] [address] * (ABNORMAL) Differential, auto (11/06/2024 2:23 PM CDT) Pathologist [facility] Neutrophil abs 6.17 1.50 - 6.50 K/cumm Imm gran abs 0.06 0.00 - 0.10 K/cumm [facility] Lymphocyte abs 2.20 0.80 - 3.30 K/cumm [facility] Monocyte abs 1.01(H) 0.20 - 0.80 K/cumm [facility] Eosinophil abs 0.32 0.00 - 0.50 K/cumm [facility] Basophil abs 0.06 0.00 - 0.10 K/cumm [facility] Neutrophil pct 62.8 % [facility] Comment: Interpretive Data Percent cell count reference ranges are not reported, since discordance with absolute values may lead to misinterpretation of CBC data. Current Interpretive Data was last revised on 2017. Imm gran pct 0.6 % [facility] Comment: Interpretive Data Percent cell count reference ranges are not reported, since discordance with absolute values may lead to misinterpretation of CBC data. Current Interpretive Data was last revised on 2017. Lymphocyte pct 22.4 % [facility] Comment: Interpretive Data Percent cell count reference ranges are not reported, since discordance with absolute values may lead to misinterpretation of CBC data. Current Interpretive Data was last revised on 2017. Monocyte pct 10.3 % [facility] Comment: Interpretive Data Percent [...] revised on 2017. Basophil pct 0.6 % [facility] Comment: Interpretive Data Percent cell count reference ranges are not reported, since discordance with absolute values may lead to misinterpretation of CBC data. Current Interpretive Data was last revised on 2017. Blood 11/06/2024 2:23 PM CDT 11/06/2024 8:36 PM CDT us Kamron Garnett MD LAB BLOOD ORDERABLES Final Result Performing Organization Address City/State/[facility] Co sc Phone Number [facility] [id number] [address] Department of Laboratories [place], [place] [id number] * PSA screen (11/06/2024 2:23 PM CDT) [...] LAB BLOOD ORDERABLES Final Result [facility] [id number] [place] [address] * (ABNORMAL) CBC with auto differential (11/06/2024 2:23 PM CDT) WBC 9.82 3.80 - 9.90 K/cumm Hgb 14.4 13.0 - 17.5 g/dL [facility] Hct 45.4 38.9 - 50.3 % [facility] Plt 290 150 - 400 K/cumm [facility] MPV 10.2 9.1 - 12.3 fL [facility] RBC 4.84 4.30 - 5.80 M/cumm [facility] MCV 93.8 81.3 - 96.4 fL [facility] MCH 29.8 27.1 - 33.3 pg [facility] MCHC 31.7(L) 32.3 - 35.7 g/dL [facility] CH RDW CV 14.6 11.1 - 14.9 % [facility] CH RDW SD 50.9(H) 35.7 - 48.1 fL [facility] NRBC abs 0.00 0.00 - 0.01 K/cumm [facility] Blood 11/06/2024 2:23 PM CDT 11/06/2024 8:36 PM CDT Kamron Garnett MD LAB BLOOD ORDERABLES Final Result [facility] [id number] [address] [employer] [place], [place] [id number] * (ABNORMAL) Vitamin D 25 hydroxy (11/06/2024 2:23 PM CDT) Vitamin D 25-OH 10(L) 30 - 80 ng/mL Blood 11/06/2024 2:23 PM CDT 11/06/2024 8:35 PM CDT Kamron Garnett MD LAB BLOOD ORDERABLES Final Result Performing Organization Address [facility] Co de Phone Number [facility] [phone] [address] [place] [address] * TSH (11/06/2024 2:23 PM CDT) Thyroid Stimulating Hormone 2.04 0.30 - 4.20 mcIUnit/mL Blood 11/06/2024 2:23 PM CDT 11/06/2024 8:35 PM CDT Kamron Garnett MD LAB BLOOD ORDERABLES Final Result Performing Organization Address [facility] Co de Phone Number [facility] [phone] [address] [place] [address] * (ABNORMAL) [place] level (11/06/2024 2:23 PM CDT) [place] 0.1(L) 0.6 - 1.2 mmol/L Comment:Testing performed by : [facility], [address] [facility], [place] [address] Blood 11/06/2024 2:23 PM CDT 11/07/2024 9:52 AM CDT Kamron Garnett MD LAB BLOOD ORDERABLES Final Result Performing Organization Address [facility] Co de Phone Number [facility] [address] [address] [place] [address] * (ABNORMAL) Lipid panel (11/06/2024 [...] Garnett MD LAB BLOOD ORDERABLES Final Result [facility] [address] [address] [place] [address] * (ABNORMAL) Comprehensive metabolic panel [...] MD LAB BLOOD ORDERABLES Final Result [facility] [address] [address] [place] [address] * Drugs of Abuse Screen, Urine without Confirmation (10/25/2024 5:36 PM CDT) Pathologist [facility] Amphetamine, ur Not Detected CutOff 500ng/mL [...] ur Not Detected CutOff 100ng/mL [facility] ([place]) Comment: Interpretive Data - Oxycodone: Samples containing greater than 100 ng/mL oxycodone or other cross-reacting compounds are reported as positive. False positive and false negative results are possible. Confirmatory testing required for definitive results. Current Interpretive Data was last reviewed 2023. Phencyclidine, ur Not Detected CutOff 25 ng/mL [facility] ([place]) Comment: Interpretive Data - Phencyclidine: Samples containing greater than 25 ng/mL phencyclidine or other cross-reacting compounds are reported as positive. False positive and false negative results are possible. Confirmatory testing required for definitive results. Current Interpretive Data was last reviewed 2023. Urine Creatinine 45 mg/dL [facility] ([place]) Comment: Interpretive Data Urine Creatinine: < 10 mg/dL is extremely dilute = or > 10 but < 20 mg/dL is dilute = or > 20 mg/dL is normal Current Interpretive Data was last revised on 2017. Urine 10/25/2024 5:36 PM CDT 10/25/2024 5:40 PM CDT [place] ANDRADE LAB URINE ORDERABLES Meche kaye Result [facility] ([place]) 1 [facility] Department [place] [address] * (ABNORMAL) Urinalysis reflex to microscopic and culture Urine (10/25/2024 3:20 PM CDT) Color, ur Yellow Yellow Clarity, ur Clear Clear WILLIAM Geiger ([place]) Specific gravity, ur 1.025 1.003 - 1.030 [facility] ([place]) pH, urine 6.0 [facility] ([place]) Comment: Interpretive Data U rine pH is affected by diet, medications, systemic acid-base disturbances, and renal tubular function. pH may affect urinary stone formation. For example, urine pH below 6.0 may help reduce the tendency for calcium phosphate stones and pH greater than 6.0 may reduce the tendency for uric acid stone formation. Source: [facility] Current Interpretive Data was last revised on [...] Result [facility] ([place]) 1 [facility] Department [place] [address] * (ABNORMAL) Drugs of Abuse Screen, Urine [...] Not Detected CutOff 25 ng/mL [facility] ([place]) Comment: Interpretive Data - Phencyclidine: Samples containing greater than 25 ng/mL phencyclidine or other cross-reacting compounds are reported as positive. False positive and false negative results are possible. Confirmatory testing required for definitive results. Current Interpretive Data was last reviewed 2023. Urine Creatinine 206 mg/dL [facility] ([place]) Comment: Interpretive Data Urine Creatinine: < 10 mg/dL is extremely dilute = or > 10 but < 20 mg/dL is dilute = or > 20 mg/dL is normal Current Interpretive Data was last revised on 2017. Urine 10/25/2024 3:20 PM CDT 10/25/2024 3:24 PM CDT Narrative [facility] ([place]) - 10/25/2024 4:22 PM CDT Drug of Abuse screening is performed by immunoassay for medical purposes only. This is not to be used for Pain Management purposes. Juan Tobin MD LAB URINE ORDERABLES Final R esult [facility] ([place]) 1 [facility] Department [place] [address] * (ABNORMAL) Urinalysis, microscopic only (10/25/2024 3:20 PM CDT) WBC, ur 11-20(A) 0 - 5 /HPF RBC, ur 3-5(A) 0 - 2 /HPF [facility] ([place]) Epithelial cells, squamous, ur 1-5 0 - 5 /HPF [facility] ([place]) Mucous, ur Present(A) [facility] ([place]) Sperm, ur Present(A) [facility] ([place]) Culture Reflex Comment Reflex to urine culture will be performed. [facility] ([place]) Urine 10/25/2024 3:20 PM CDT 10/25/2024 3:23 PM CDT Juan Tobin MD LAB URINE ORDERABLES Final R esult Performing Organization Address City/[facility]/ZIP Co de Phone Number [facility] ([place]) [address] [place] [address] Department [place] [address] * Urine culture Urine (10/25/2024 3:20 PM CDT) Report Final Report: Less than 100,000 colonies/mL (clinically insignificant growth based on current clinical standards) Comment:Testing performed by : [facility], [address] [facility] [place]., [address] Organism (CLINICALLY INSIGNIFICANT GROWTH [facility] ([place]) Urine 10/25/2024 3:20 PM CDT 10/25/2024 6:11 PM CDT Narrative [facility] ([place]) - 10/26/2024 6:43 PM CDT Urine culture reflexed based upon urinalysis results. Testing performed by [facility] Microbiology Laboratory ([phone]) us Nito Null MD LAB MICROBIOLOGY - GENERAL O RDERABLES Final Result Performing Organization Address [facility] Co de Phone Number WILLIAM [facility] ([place]) [address] [place] [address] [place] [address] * COVID-19 Coronavirus RNA Nasopharyngeal (10/25/2024 3:09 PM CDT) COVID-19 RNA Negative Negative Nasopharyngeal 10/25/2024 3: 09 PM CDT 10/25/2024 3:15 PM CDT Narrative [facility] ([place]) - 10/25/2024 3:47 PM CDT Is the patient experiencing any symptoms consistent with COVID (eg. Fever, cough, shortness of breath)?->No What is the reason for testing?->Screening prior to Behavioral health admission Interpretive data: Testing performed by [facility]. This test is performed using the VeriTainer Xpert Xpress CoV-2 plus assay. This is a real-time RT-PCR test intended for the qualitative detection of nucleic acid from the SARS-CoV-2. This assay has been cleared by the [facility] Food and Drug administration. The performance characteristics have been verified by [facility]. Results must be considered in the clinical context, and a negative result does not rule out infection. Interpretive data last revised 2024. Interpretive data: Testing performed by [facility]. This test is performed using the VeriTainer Xpert Xpress CoV-2 plus assay. This is a real-time RT-PCR test intended for the qualitative detection of nucleic acid from the SARS-CoV-2. This assay has been cleared by the [facility] Food and Drug administration. The performance characteristics have been verified by [facility]. Results must be considered in the clinical context, and a negative result does not rule out infection. Interpretive data last revised 2024. Juan Tobin MD LAB MICROBIOLOGY - GENERAL O RDERABLES Final Result [facility] ([place]) 1 [facility] Department [place] [address] * eGFR (10/25/2024 3:09 PM CDT) eGFR [...] MD LAB BLOOD ORDERABLES Final R esult [facility] ([place]) 1 [facility] Department [place] [address] * (ABNORMAL) Differential, auto (10/25/2024 3:09 PM CDT) Neutrophil abs 6.87(H) 1.50 - 6.50 K/cumm Imm gran abs 0.04 0.00 - 0.10 K/cumm [facility] ([place]) Lymphocyte abs 1.72 0.80 - 3.30 K/cumm [facility] ([place]) Monocyte abs 0.73 0.20 - 0.80 K/cumm [facility] ([place]) Eosinophil abs 0.14 0.00 - 0.50 K/cumm [facility] ([place]) Basophil abs 0.06 0.00 - 0.10 K/cumm [facility] ([place]) Neutrophil pct 71.9 % [facility] ([place]) Comment: Interpretive Data Percent cell count reference [...] ORDERABLES Final R esult Performing Organization Address City/[facility]/ZIP Co de Phone Number [facility] ([place]) [address] [facility] [place] [employer] [address] * Thyroid Function [place] (10/25/2024 3:09 PM CDT) TSH 1.81 0.30 - 4.20 mcIUnit/mL Blood 10/25/2024 3:09 PM CDT 10/25/2024 3:15 PM CDT Juan Tobin MD LAB BLOOD ORDERABLES Final R esult Performing Organization Address City/[facility]/ZIP Co de Phone Number [facility] ([place]) [address] [facility] [place] [employer] [place] [address] * (ABNORMAL) CBC with auto differential (10/25/2024 [...] ORDERABLES Final R esult Performing Organization Address City/[facility] Co de Phone Number [facility] ([place]) 1 [facility] [place] [place] [address] * Ethanol (10/25/2024 3:09 PM CDT) Ethanol <10 <=10 mg/dL Comment: Interpretive Data Legal limit of intoxication > or = 80 mg/dL Levels > or = 400 mg/dL are potentially TOXIC. Current interpretive data was last revised on 2018. Blood 10/25/2024 3:09 PM CDT 10/25/2024 3:15 PM CDT Juan Tobin MD LAB BLOOD ORDERABLES Final R esult [facility] ([place]) [address] [facility] [place] [address] * Acetaminophen level (10/25/2024 3:09 PM CDT) [...] after ingestion Consult toxicology or poison control ([phone]) for unknown ingestion time. Current interpretive data was last revised 2023. Blood 10/25/2024 3:09 PM CDT 10/25/2024 3:15 PM CDT Juan Tobin MD LAB BLOOD ORDERABLES Final R esult Performing Organization Address [facility] Co de Phone Number [facility] ([place]) 1 [facility] [employer] [address] * Salicylate level (10/25/2024 3:09 PM CDT) Salicylate <5.0 <=5.0 mg/dL Comment: Interpretive Data Toxic: 30 mg/dL or greater. Current interpretive data was last revised 2023. Blood 10/25/2024 3:09 PM CDT 10/25/2024 3:15 PM CDT Juan Tobin MD LAB BLOOD ORDERABLES Final R esult [facility] ([place]) 1 [facility] [place] [address] * Comprehensive metabolic panel (10/25/2024 3:09 PM [...] MD LAB BLOOD ORDERABLES Final R esult [facility] ([place]) 1 [facility] Department [place] [address] * COVID-19 Coronavirus RNA Nasopharyngeal (10/22/2024 6:46 PM CDT) COVID-19 RNA Negative Negative Nasopharyngeal 10/22/2024 6: 46 PM CDT 10/22/2024 6:55 PM CDT Gordon S[facility]VA ([place]) - 10/22/2024 7:39 PM CDT Is the patient experiencing any symptoms consistent with COVID (eg. Fever, cough, shortness of breath)?->No What is the reason for testing?->Screening prior to Behavioral health admission Interpretive data: Testing performed by [facility]. This test is performed using the VeriTainer Xpert Xpress CoV-2 plus assay. This is a real-time RT-PCR test intended for the qualitative detection of nucleic acid from the SARS-CoV-2. This assay has been cleared by the [place] Food and Drug administration. The performance characteristics have been verified by [facility]. Results must be considered in the clinical context, and a negative result does not rule out infection. Interpretive data last revised 2024. Interpretive data: Testing performed by [facility]. This test is performed using the VeriTainer Xpert Xpress CoV-2 plus assay. This is a real-time RT-PCR test intended for the qualitative detection of nucleic acid from the SARS-CoV-2. This assay has been cleared by the [place] Food and Drug administration. The performance characteristics have been verified by [facility]. Results must be considered in the clinical context, and a negative result does not rule out infection. Interpretive data last revised 2024. Eugene Ballard MD LAB MICROBIOLOGY - GENERAL ORD ERABLES Final Result WILL[facility] ([place]) 1 [facility] Department [place] [address] * eGFR (10/22/2024 6:46 PM CDT) eGFR [...] PM CDT 10/22/2024 6:55 PM CDT us Eguene Ballard MD LAB BLOOD ORDERABLES Final Res ult [facility] ([place]) 1 [facility] Department [place] [address] * Differential, auto (10/22/2024 6:46 PM CDT) [...] ORDERABLES Final Res ult Performing Organization Address City/[facility]/ZIP Co de Phone Number WILLIAM SILVA (NORTHROP) [address] [facility] [place] [employer] [address] * Thyroid Function [place] (10/22/2024 6:46 PM CDT) TSH 1.24 0.30 - 4.20 mcIUnit/mL Blood 10/22/2024 6:46 PM CDT 10/22/2024 6:55 PM CDT Eugene Ballard MD LAB BLOOD ORDERABLES Final Res ult WILLIAM SILVA ([place]) [address] [facility] [place] [address] * (ABNORMAL) Urinalysis reflex to microscopic and [...] tendency for uric acid stone formation. Source: [facility] Current Interpretive Data was last revised on [...] Reflex to microscopic UA will be performed. [facility] ([place]) Urine 10/22/2024 6:46 PM CDT 10/22/2024 6:55 PM CDT us Eugene Ballard MD LAB MICROBIOLOGY - GENERAL ORD ERABLES Final Result [facility]VALEAPARNA [facility] ([place]) 1 [facility] Department [place] [address] * (ABNORMAL) CBC with auto differential (10/22/2024 [...] ult WILLIAM SILVA ([place]) 1 [facility] [place] [address] * (ABNORMAL) Drugs of Abuse Screen, Urine without Confirmation (10/22/2024 6:46 PM CDT) Pathologist [facility] Amphetamine, ur Not Detected CutOff 500ng/mL [...] 10/22/2024 6:55 PM CDT Narrative WILLIAM SILVA ([place]) - 10/22/2024 7:48 PM CDT Drug of Abuse screening is performed by immunoassay for medical purposes only. This is not to be used for Pain Management purposes. Eugene Ballard MD LAB URINE ORDERABLES Final Res ult WILLIAM SILVA ([place]) 1 [facility] Department [place] [address] * (ABNORMAL) Urinalysis, microscopic only (10/22/2024 6:46 PM CDT) WBC, ur 11-20(A) 0 - 5 /HPF RBC, ur 11-20(A) 0 - 2 /HPF WILLIAM SILVA ([place]) Epithelial cells, squamous, ur 1-5 0 - 5 /HPF [facility] SILVA ([place]) Mucous, ur Present(A) WILLIAM Geiger ([place]TH[place]OP) Culture Reflex Comment Reflex to urine culture will be performed. [facility]IAM SILVA ([place]) Urine 10/22/2024 6:46 PM CDT 10/22/2024 6:55 PM CDT Eugene Ballard MD LAB URINE ORDERABLES Final Res ult Performing Organization Address City/[facility]/ZIP Co de Phone Number WILLIAM OTERON) 1 [facility] [employer] [address] * Urine culture Urine (10/22/2024 6:46 PM CDT) Report Final Report: Less than 100,000 colonies/mL (clinically insignificant growth based on current clinical standards) Comment:Testing performed by : [facility], 1 [facility] [place] [address] Organism (CLINICALLY INSIGNIFICANT GROWTH [facility]IAM SILVA ([place]TH[place]OP) Urine 10/22/2024 6:46 PM CDT 10/23/2024 12:18 AM CDT Narrative [facility]IAM SILVA ([place]) - 10/24/2024 6:40 AM CDT Urine culture reflexed based upon urinalysis results. Testing performed by [facility] Microbiology Laboratory ([phone]) Eugene Ballard MD LAB MICROBIOLOGY - GENERAL ORD ERABLES Final Result Performing Organization Address [facility] Co de Phone Number WILLIAM SILVA (NORTHROP) 1 [place] [address] * Ethanol (10/22/2024 6:46 PM CDT) Ethanol <10 <=10 mg/dL Comment: Interpretive Data Legal limit of intoxication > or = 80 mg/dL Levels > or = 400 mg/dL are potentially TOXIC. Current interpretive data was last revised on 2018. Blood 10/22/2024 6:46 PM CDT 10/22/2024 6:55 PM CDT us Eugene Ballard MD LAB BLOOD ORDERABLES Final Res ult [facility]IAM SILVA ([place]) 1 [facility] [place] [address] * Acetaminophen level (10/22/2024 6:46 PM CDT) [...] after ingestion Consult toxicology or poison control ([phone]) for unknown ingestion time. Current interpretive data was last revised 2023. Blood 10/22/2024 6:46 PM CDT 10/22/2024 6:55 PM CDT [place] ANDRADE LAB BLOOD ORDERABLES Meche l Result Performing Organization Address City/[facility]/ZIP Co de Phone Number WILLIAM SILVA NORTH[place]) [address] [place] [address] [place] [address] * Salicylate level (10/22/2024 6:46 PM CDT) Salicylate <5.0 <=5.0 mg/dL Comment: Interpretive Data Toxic: 30 mg/dL or greater. Current interpretive data was last revised 2023. Blood 10/22/2024 6:46 PM CDT 10/22/2024 6:55 PM CDT [place] ANDR[facility] LAB BLOOD ORDERABLES Meche l Result WILLIAM SILVA ([place]TH[place]OP) [address] [facility] [place] [address] * Comprehensive metabolic panel (10/22/2024 6:46 PM [...] ult [facility] ([place]) 1 [facility] [place] [address] * Hepatitis C antibody (01/11/2021 12:09 PM CDT) Hep C Ab Nonreactive Nonreactive WILLIAM SILVA ([place]) Comment: Interpretive Data Nonreactive: Antibodies to HCV [...] last revised on 2019. Testing performed by: [facility], [address] [place] [address]., [id number] Blood specimen (specimen) 01/11/2021 12:09 PM CDT 01/11/2021 3:53 PM CDT Kamron Garnett MD LAB MICROBIOLOGY - GENERAL ORDERABLES Final Result WILLIAM SILVA ([place]OP) 1 [facility] Department [place] [address] from Last 3 Months or Most Recently Relevant to Health Maintenance Insurance [employer] MEDICARE PPO [employer] MED[employer]ARE PPO [employer] MEDICARE HMO Care Teams Housing Relocation Relationship Specialty Start Date End Date Kamron Garnett MD [address] [place] [address] PCP - General Family Medicine 07/24/23 Micaela Baum RN [address] [place] [address] [address] [place] [address] Farm Management Professor 10/23/24
--- OUTSIDE RECORDS SUMMARY | 2024-11-22 20:52 | XMS_ITS | Encounter Summary ---
Author Organization [facility] Healthcare Address [address] [place] [address] Care Team Providers Care Defense Attorney Name Role Phone Kamron Garnett MD Primary Care Provider [phone] Becky Sands LCSW Unavailable Unavaila Micaela Braga RN Unavailable [phone] Reason for Visit * Reason Onset Date Comments Hallucinations 10/22/2024 Encounter Details Date Type Department Care Team (Late st Contact Info) Description 10/22/2024 Nurse Triage [facility] Medical Group Primary Care at [address] [id number] Kamron Garnett MD [address] [place] [address] [address] [place] [address] Social History Tobacco Use Types Packs/Day Years Used Date Smoking Tobacco: Some Days Cigarettes 0.5 69.4 Started: 07/02/1980 Cigars Smokeless Tobacco: Never Alcohol Use Standard Drinks/Week Comments Not Currently 0 (1 standard drink = 0.6 oz pur e alcohol) [facility] Utilities Answer Date Recorded In the past 12 months has [employer], gas, oil, or water Valentin Uzhun threatened to shut off services in your home? No 10/23/2024 Social Connection and Isolation Panel [NHANES] A nswer Date Recorded In a typical week, how many times do you talk on the phone with family, friends, or neighbors? Three times a week 10/23/2024 How often do you get togethe r with friends or relatives? Never 10/23/2024 How often do you attend chur or anabaptism services? Never 10/23/2024 Do you belong to [...] staff should administer the PHQ-9) 6 05/01/2024 [facility] - [...] any time in the past 12 m [facility], were you homeless or living [...] SI/HI. Pt expresses willingness to proceed to [facility] ED at this time. He is [...] or paranoid behavior Protocols used: Confusion - [id number] * Telephone Encounter - Brandi Bunch RN [...] medications as ordered. Coordinate with appropriate personnel (telecommunications linesworker, physician, pharmacist, etc.) to help increase compliance with medication regimen. - Review with patient/caregiver the medication schedule in detail. Review when to call their physician for potential medication complications and ensure they verbalize understanding of instructions. documented as of this encounter Visit Diagnoses Not on filedocumented in this encounter Care Teams Defense Attorney Relationship Specialty Start Date End Date Kamron Garnett MD [address] [facility] [address] [place], [place] [id number] PCP - General Family Medicine 07/24/23 Becky Sands, NEW [employer] DELIVERY DRIVER Medieval English Literature Professor 10/23/24 11/11/24 Micaela Baum, RN [address] [place] [address] Dr [address] [place] [id number] Log Driver 10/23/24 documented as of this encounter
--- NOTE | 2024-11-22 20:59 | ED.CHESTPAIN ---
HPI - Chest Pain General Chief Complaint: Chest Pain Stated Complaint: Chest pain, left shoulder pain Time Seen by Provider: 11/22/24 20:42 History of Present Illness HPI narrative: Patient is a 64-year-old male who presents to the ER with chest pain that started late this afternoon. He endorses tightness in his chest that radiates to left shoulder. Patient endorses a history of an [place], skin cancer, and bipolar disease. He reports pain does not worsen or improve position changes. Patient endorses mild shortness of breath and headache. He reports he drinks approximately 4 bottles of Pepsi per day, occasionally smokes weed, and smokes cigarettes. Patient denies any abdominal pain, back pain, recent fevers or urinary symptoms. Related Data Allergies Allergy/AdvReac Type Severity Reaction Status Date / Time No Known Allergies Allergy Verified 11/22/24 20:53 Review of Systems Review of Systems: All systems reviewed & are unremarkable except as noted in HPI and below Exam Narrative: GENERAL: Well appearing, well-nourished, non-toxic, in no acute distress. HEAD: Normocephalic, atraumatic. NECK: Supple. No adenopathy, no masses. RESPIRATORY: Airway patent, respirations nonlabored. + Crackles to auscultation bilaterally, + mild wheezing. CARDIOVASCULAR: Tachycardia without murmurs, rubs, or gallops. Peripheral pulses 2+ and equal bilaterally. + lower extremity edema ABDOMINAL: Soft, nontender, nondistended, no hepatosplenomegaly. Normoactive BS. MUSCULOSKELETAL: Moves all extremities. Strength/ROM intact without gross deformities. SKIN: Warm, dry, normal color. No rashes. NEURO: A&O X3. Speech clear. Cranial nerves II-XII intact. No ataxic movements. PSYCHIATRIC: Appropriate mood and affect. Normal interaction. Course Vital Signs Vital signs: Vital Signs Temperature 36.7 C 11/22/24 19:39 Pulse Rate 95 11/22/24 19:39 Respiratory Rate 16 11/22/24 19:39 Blood Pressure 155/62 H 11/22/24 19:39 Pulse Oximetry 100 11/22/24 19:39 Oxygen Delivery Room Air 11/22/24 19:39 Temperature 36.7 C 11/22/24 19:39 Pulse Rate 111 H 11/22/24 21:31 Respiratory Rate 17 11/22/24 21:31 Blood Pressure 146/79 H 11/22/24 21:31 Pulse Oximetry 100 11/22/24 21:20 Oxygen Delivery Room Air 11/22/24 21:20 Fraction of Inspired Oxygen 21 11/22/24 21:20 MDM - Chest Pain MDM Narrative Medical decision making narrative: Patient is a 64-year-old male who presents to the ER with chest pain that started late this afternoon. He endorses tightness in his chest that radiates to left shoulder. Patient endorses a history of an [place], skin cancer, and bipolar disease. He reports pain does not worsen or improve position changes. Patient endorses mild shortness of breath and headache. He reports he drinks approximately 4 bottles of Pepsi per day, occasionally smokes weed, and smokes cigarettes. Patient denies any abdominal pain, back pain, recent fevers or urinary symptoms. Labs Ordered: CBC, CMP, lipase, troponin, INR, PTT, BNP Imaging Ordered: CTA chest PE scan, chest x-ray Medications Ordered: DuoNeb, Toradol IV Results: Patient's CTA chest scan indicates no acute pulmonary embolism, no pleural effusion, no pneumothorax, no pneumonia Diagnosis: Hepatic steatosis, atypical chest pain Risks: HEART score: low risk HEART Score for Major Cardiac Events from [employer] on 11/22/2024 All calculations should be rechecked by clinician prior to use RESULT SUMMARY: 3 points Low Score (0-3 points) Risk of MACE of 0.9-1.7%. INPUTS: History ?> 1 = Moderately suspicious EKG ?> 0 = Normal Age ?> 1 = 45-64 Risk factors ?> 1 = 1-2 risk factors Initial troponin ?> 0 = <=Normal limit Patient Education/Shared MDM: Results of lab work and imaging shared with patient. He endorses improvement of symptoms following nebulizer administration and Toradol administration. Patient strongly advised to maintain hydration status upon discharge and follow-up with their PCP as soon as possible. He reports he already has an appointment with his PCP on Sunday, two days from now. Pt will not be discharged home with any new prescriptions. Strict return precautions provided. Patient verbalized understanding and is in agreement with plan. Vital signs stable at time of discharge. All questions answered. Differential Diagnosis Differential diagnosis: Likely atypical chest pain, st elevation myocardial infarction, costochondritis and other (PE, pneumonia) Lab Data Attestation: I reviewed the patient's lab results. 11/22/24 19:52 11/22/24 19:52 Labs: Lab Results 11/22/24 11/22/24 11/22/24 Range/Units 19:50 19:52 22:46 WBC 11.0 H (4.5-10.0) K/mm3 RBC 4.94 (4.6-6.20) M/mm3 Hgb 14.7 (14.0-18.0) g/dL Hct 45.7 (42.0-52.0) % MCV 92.5 (80-100) fl MCH 29.8 (26-34) pg MCHC 32.2 (32-36) g/dl RDW 15.0 H (11.5-14.5) % Plt Count 302 (150-375) k/mm3 MPV 9.0 (7.4-10.4) fl Immature Gran % (Auto) 0.5 (0-0.5) % Neut % (Auto) 69.9 (45.5-73.1) % Lymph % (Auto) 17.5 L (18.3-44.2) % [place] % (Auto) 9.0 H (2.6-8.5) % Eos % (Auto) 2.4 (0-4.4) % Baso % (Auto) 0.7 (0.2-1.2) % Lymph # (Auto) 1.93 (0.9-3.2) K/mm3 [place] # (Auto) 1.0 H (0.1-0.6) K/mm3 Eos # (Auto) 0.3 (0-0.3) K/mm3 Baso # (Auto) 0.1 (0.0-0.1) K/mm3 Abs Immat Gran (auto) 0.06 H (0.00-0.031) K/mm3 Absolute Neuts (auto) 7.7 H (1.3-6.7) K/mm3 Absolute Nucleated RBC 0.000 (0.0-0.012) K/mm3 Nucleated RBC % 0.0 (0.0-0.2) % PT 13.4 (11.1-14.7) Seconds INR 1.0 APTT 27.3 (22.3-36.8) Seconds Sodium 138 (137-145) mmol/L Potassium 3.4 (3.4-5.0) mmol/L Chloride 104 (98-107) mmol/L Carbon Dioxide 32 H (22-30) mmol/L Anion Gap 2 L (4-12) mmol/L BUN 15 (9-20) mg/dL Creatinine 0.92 (0.7-1.3) mg/dL Estim Creat Clear Calc 85 ml/min Estimated GFR > 60 (59 - ) Glucose 108 (65-110) mg/dL Calcium 8.8 (8.4-10.2) mg/dL Total Bilirubin 0.5 (0.2-1.3) mg/dL AST 25 (17-59) U/L ALT 20 (6-50) U/L Alkaline Phosphatase 60 (38-126) U/L Troponin I < 0.012 < 0.012 (0.000-0.034) ng/mL NT-Pro-B Natriuret Pep < 20 (19.9-100) pg/mL Total Protein 6.0 L (6.3-8.2) g/dL Albumin 3.4 L (3.5-5.1) g/dL Lipase 81 (23-300) U/L Imaging Data Attestation: I personally reviewed and interpreted this imaging study as follows: Radiologist's impression: Impressions Chest X-Ray 11/22/24 20:01 IMPRESSION: No acute cardiopulmonary pathology. Discharge Plan Discharge Clinical Impression: Atypical chest pain, Hepatic steatosis Patient Disposition: Home Condition: Stable Instructions: Antibiotic Form Additional Instructions: Please return to the ER with any worsening symptoms. Follow-up with primary care provider as soon as possible. Take all regularly scheduled medications. Patient Language: Kazakh Follow-up/Referrals: UNKNOWN,DOCTOR [Primary Care Provider] - Time of Disposition: 00:22
[2024-11-22 21:15] LABS: NT Pro B Type Natriuretic Pept < 20 pg/mL (19.9-100)
[2024-11-22] MEDS: IPRATROPIUM 0.5 MG/ALBUTEROL SULFATE 2.5 MG AMPUL.NEB 3 ML INHALATION (21:17)
[2024-11-22 21:19] VITALS: PULSE 104; RESP 16
[2024-11-22 21:20] VITALS: O2SAT 100
[2024-11-22 21:30] VITALS: PULSE 104; RESP 16
[2024-11-22 21:31] VITALS: BP 146/79; PULSE 111; RESP 17
--- NOTE | 2024-11-22 22:42 | ECG_ITS ---
Test Date: 2024-11-22 22:45:43 Measurements Intervals [place] Rate: 91 P: 31 LA: 156 QRS: -12 QRSD: 96 T: 61 QT: 353 QTc: 434 Interpretive Statements SINUS RHYTHM WITH OCCASIONAL VENTRICULAR PREMATURE COMPLEXES ANTEROSEPTAL MYOCARDIAL INFARCTION , OF INDETERMINATE AGE [40+ ms Q WAVE IN V1-V4] INFERIOR INFARCT, AGE INDETERMINATE Compared to ECG 11/22/2024 19:42:19 Ventricular premature complex(es) now present Myocardial infarct finding still present Electronically Signed On 11-23-2024 10:09:38 CDT by Kashmir Warner M.D.
[2024-11-22 23:21] LABS: Troponin I < 0.012 ng/mL (0.000-0.034)
[2024-11-23] MEDS: KETOROLAC 15 MG/ML VIAL (*BKC) IV PUSH
== END 2024-11-23 00:31 | disposition home or self-care (01) ==
PROVIDERS: Student in an Organized Health Care Education/Training Program; Emergency Provider Registered Nurse
DX: R07.89 Other chest pain (principal); K76.0 Fatty (change of) liver, not elsewhere classified
CPT/HCPCS: 36415; 71046; 71275; 80053; 83690; 83880; 84484; 85025; 85610; 85730; 93005; 94640; 96374; 99284; J1885; Q9967